=== PATIENT | female | born 1960 | race Caucasian/White ===

== ENCOUNTER 2019-06-23 12:58 | Outpatient (REF) | payer MEDICARE, SELFPAY ==
[2019-06-23 18:49] LABS: HCT 39.2 % (36.0-46.0); HGB 12.3 g/dL (12.0-15.5); Mean Corp. HGB Concentration 31.4 g/dL (32.0-36.0); Mean Corpuscular Hemoglobin 29.2 pg (27.0-33.0); Mean Corpuscular Volume 93.1 fL (80-95); Mean Platelet Volume 10.1 fL (8.0-11.0); Platelet Count 391 x1000/uL (130-400); RBC 4.21 m/cumm (4.00-5.20); RBC Distribution Width 15.4 % (11.7-14.6); White Blood Cell Count 7.73 k/cumm (4.4-10.8)
[2019-06-23 19:12] LABS: ALT 22 U/L (14-59); AST 20 U/L (15-37); Albumin 3.4 g/dL (3.4-5.0); Alkaline Phosphatase 102 U/L (46-116); Anion Gap 9.6 mmol/L (3-11); BUN 4 mg/dL (7-18); Bilirubin, Total 0.3 mg/dL (0.2-1.0); CO2 28.4 mmol/L (21.0-32.0); CREATININE 0.76 mg/dL (0.55-1.02); Chloride 107 mmol/L (98-107); Glucose 89 mg/dL (70-100); Potassium 4.5 mmol/L (3.5-5.1); Sodium 145 mmol/L (136-145); TSH 0.73 uIU/mL (0.36-3.74); Total Protein 6.9 g/dL (6.4-8.2)
== END 2019-06-23 13:18 ==
LOC: NCHCN 12:58
PROVIDERS: PCP Internal Medicine; Visit Provider Internal Medicine
DX: M06.9 Rheumatoid arthritis, unspecified (principal); Z79.899 Other long term (current) drug therapy
CPT/HCPCS: 80053; 85027; 84443

== ENCOUNTER 2020-03-09 22:15 | Outpatient (REF) | payer MEDICARE, SELFPAY ==
[2020-03-09 19:38] LABS: HCT 39.4 % (36.0-46.0); HGB 12.6 g/dL (12.0-15.5); Mean Corpuscular Hemoglobin 30.2 pg (27.0-33.0); Mean Corpuscular Volume 94.5 fL (80-95); Mean Platelet Volume 11.1 fL (8.0-11.0); Platelet Count 293 x1000/uL (130-400); RBC 4.17 m/cumm (4.00-5.20)
[2020-03-09 19:49] LABS: ALT 23 U/L (14-59); AST 28 U/L (15-37); Alkaline Phosphatase 95 U/L (46-116); Bilirubin, Direct 0.17 mg/dL (0.00-0.20); Bilirubin, Total 0.8 mg/dL (0.2-1.0); Total Protein 6.8 g/dL (6.4-8.2)
[2020-03-11 14:56] LABS: ANA Interpretation Positive (Negative); ANA Titer Pattern 1:80 Homogeneous
== END 2020-03-09 22:35 ==
LOC: NCHCN 22:15
PROVIDERS: PCP Internal Medicine; Visit Provider Nurse Practitioner Family
DX: R21 Rash and other nonspecific skin eruption (principal)
CPT/HCPCS: 80076; 85027; 86038

== ENCOUNTER 2020-07-13 12:49 | Outpatient (REF) | payer MEDICARE, SELFPAY ==
[2020-07-17 07:20] LABS: Patient Race White; SARS-CoV-2 Specimen Source Nasopharynx
[2020-07-17 08:36] LABS: SARS-CoV-2 RNA Detected (Undetected)
== END 2020-07-13 13:09 ==
LOC: NCHCN 12:49
PROVIDERS: PCP Internal Medicine; Visit Provider Nurse Practitioner Family
DX: Z20.828 Contact with and (suspected) exposure to other viral communicable diseases (principal)
CPT/HCPCS: U0003

== ENCOUNTER 2020-11-02 15:40 | Outpatient (REF) | payer MEDICARE, SELFPAY ==
[2020-11-02 19:33] LABS: Abs Immature Grans 0.02 10^3/uL (0.0-0.06); Absolute Basophil Count 0.06 10^3/uL (0.0-0.2); Absolute Eosinophil Count 0.18 10^3/uL (0.0-0.7); Absolute Lymphocyte Count 1.54 10^3/uL (1.2-3.4); Absolute Monocyte Count 0.41 10^3/uL (0.1-0.8); Absolute Neutrophil Count 2.95 10^3/uL (1.2-6.7); Basophils % 1.2; Eosinophils % 3.5; HCT 41.7 % (36.0-46.0); HGB 12.9 g/dL (11.2-15.7); Immature Grans % 0.4; Lymphocytes % 29.8; MCHC 30.9 % (32.0-36.0); MCV 93.7 fL (80-95); MPV 11.1 fL (8.0-11.0); Monocytes % 7.9; Neutrophils % 57.2; Nucleated RBC 0 %; Platelet Count 363 10^3/uL (130-400); RBC 4.45 10^6/uL (3.93-5.22); RDW 15.1 % (11.7-14.6); WBC 5.16 10^3/uL (4.4-10.8)
[2020-11-02 19:54] LABS: ALT 23 U/L (14-59); AST 23 U/L (15-37); Albumin 3.8 g/dL (3.4-5.0); Alkaline Phosphatase 95 U/L (46-116); Anion Gap 6.6 mmol/L (3-11); BUN 13 mg/dL (7-18); Bilirubin, Total 0.5 mg/dL (0.2-1.0); CO2 30.4 mmol/L (21.0-32.0); CREATININE 0.8 mg/dL (0.55-1.02); Chloride 104 mmol/L (98-107); Glucose 80 mg/dL (74-106); Potassium 4.8 mmol/L (3.5-5.1); Sodium 141 mmol/L (136-145)
== END 2020-11-02 15:41 | disposition home or self-care (01) ==
LOC: LBN 15:40
PROVIDERS: PCP Internal Medicine; Visit Provider Internal Medicine
DX: M05.9 Rheumatoid arthritis with rheumatoid factor, unspecified (principal); Z79.899 Other long term (current) drug therapy
CPT/HCPCS: 80053; 85025

== ENCOUNTER 2021-06-09 13:15 | Outpatient (REF) | payer MEDICARE, SELFPAY ==
[2021-06-09 19:45] LABS: Abs Immature Grans 0.02 10^3/uL (0.0-0.06); Absolute Basophil Count 0.06 10^3/uL (0.0-0.2); Absolute Eosinophil Count 0.24 10^3/uL (0.0-0.7); Absolute Lymphocyte Count 1.39 10^3/uL (1.2-3.4); Absolute Monocyte Count 0.47 10^3/uL (0.1-0.8); Absolute Neutrophil Count 3.25 10^3/uL (1.2-6.7); Basophils % 1.1; Eosinophils % 4.4; HCT 40.6 % (36.0-46.0); HGB 12.9 g/dL (11.2-15.7); Immature Grans % 0.4; Lymphocytes % 25.6; MCH 30.8 pg (27.0-33.0); MCHC 31.8 % (32.0-36.0); MCV 96.9 fL (80-95); MPV 10.8 fL (8.0-11.0); Monocytes % 8.7; Neutrophils % 59.8; Nucleated RBC 0 %; Platelet Count 327 10^3/uL (130-400); RBC 4.19 10^6/uL (3.93-5.22); RDW 14.6 % (11.7-14.6); WBC 5.43 10^3/uL (4.4-10.8)
[2021-06-09 20:04] LABS: ALT 25 U/L (14-59); AST 24 U/L (15-37); Alkaline Phosphatase 77 U/L (46-116); Anion Gap 7.9 mmol/L (3-11); BUN 14 mg/dL (7-18); Bilirubin, Total 0.5 mg/dL (0.2-1.0); CO2 30.1 mmol/L (21.0-32.0); CREATININE 0.9 mg/dL (0.55-1.02); Calcium 9.1 mg/dL (8.5-10.1); Chloride 104 mmol/L (98-107); Glucose 89 mg/dL (74-106); Potassium 4.6 mmol/L (3.5-5.1); Sodium 142 mmol/L (136-145); Total Protein 6.9 g/dL (6.4-8.2)
== END 2021-06-09 13:16 | disposition home or self-care (01) ==
LOC: LBN 13:15
PROVIDERS: PCP Internal Medicine; Visit Provider Internal Medicine
DX: M05.9 Rheumatoid arthritis with rheumatoid factor, unspecified (principal); Z79.899 Other long term (current) drug therapy
CPT/HCPCS: 80053; 85025

== ENCOUNTER 2021-11-07 14:39 | Outpatient (REF) | payer MEDICARE, SELFPAY ==
[2021-11-07 20:02] LABS: ALT 13 U/L (14-59); AST 18 U/L (15-37); Albumin 3.5 g/dL (3.4-5.0); Alkaline Phosphatase 87 U/L (46-116); Anion Gap 7.6 mmol/L (3-11); BUN 15 mg/dL (7-18); Bilirubin, Total 0.4 mg/dL (0.2-1.0); CO2 27.4 mmol/L (21.0-32.0); CREATININE 1.1 mg/dL (0.55-1.02); Calcium 9.2 mg/dL (8.5-10.1); Chloride 103 mmol/L (98-107); Estimated GFR 50.67 (mL/min/1.73m2); Glucose 101 mg/dL (74-106); Potassium 5.2 mmol/L (3.5-5.1); Sodium 138 mmol/L (136-145); Total Protein 7.6 g/dL (6.4-8.2)
== END 2021-11-07 14:40 | disposition home or self-care (01) ==
LOC: LBN 14:39
PROVIDERS: PCP Internal Medicine; Visit Provider Internal Medicine
DX: M05.9 Rheumatoid arthritis with rheumatoid factor, unspecified (principal); Z79.899 Other long term (current) drug therapy
CPT/HCPCS: 80053

== ENCOUNTER 2021-12-21 16:25 | Outpatient (REF) | payer MEDICARE, SELFPAY ==
--- OUTSIDE RECORDS SUMMARY | 2021-12-21 16:29 | XMS_ITS ---
:1960 Author Care Team Providers Name Role Phone SANFORD CABELLO MD Primary Care Provider [phone] CASSANDRA ABAD MD General Surgeon Unavailable Allergies Code Code System Name Reaction Severity Status Onset 20360928 RxNorm Biaxin ? ? Active ? 24612 RxNorm Halobetasol Rash ? Active ? Medications Name Status Start Date Stop Date ? ? acetaminophen 300 mg-codeine 30 mg Completed ? 03/29/2020 tablet amitriptyline 25 mg tablet Completed 09/13/202109/15 Take 1 tablet 3 times a day by oral route. replaces imipramine home med amoxicillin 875 mg-potassium clavulanate 125 mg tablet Active 09/13/2021 Not available Take 1 tablet twice a day by oral route for 10 days. azelastine 137 mcg (0.1 %) nasal Completed ? 03/29/2020 spray aerosol azithromycin 250 mg tablet Completed ? 03/29 benzonatate 200 mg capsule Active 09/13/2021 Not a vailable Take 1 capsule 3 times a day by oral route as needed. Calcium 500 + D Completed 09/13/2021 09/14/2021 cannabidiol 100 mg/mL oral solution Completed 09/13/2021 09/14/2021 Take 2 mL twice a day by oral route for 30 days. clotrimazole 1 % topical cream Completed ? 0 04/04/2021 cranberry Completed 09/13/2021 09/14/2021 Culturelle Completed 09/13/2021 09/14/2021 Enbrel SureClick 50 mg/mL (1 mL) Completed 09/13/2021 09/14/2021 subcutaneous pen injector Estrace 0.01% (0.1 mg/gram) vaginal cream Completed 202109/14/2021 Insert 1 g by vaginal route. famotidine 20 mg tablet Completed 09/13/2021 09/19/19 Take 1 tablet twice a day by oral route for 30 days. folic acid Completed 09/13/2021 09/14/2021 folic acid 1 mg tablet Active 09/13/2021 Not avail able Take 1 tablet every day by oral route for 30 days. furosemide 40 mg tablet Active 09/13/2021 Not avai lable Take 1 tablet every day by oral route in the morning. Glucosamine Chondroitin MaxStr Completed 09/13/2021 0 09/14/2021 halobetasol propionate 0.05 % Completed ? topical ointment hydroxychloroquine 200 mg tablet Active 09/13/2021 Not available 1 tablet twice a day by oral route. imipramine 25 mg tablet Active 09/13/2021 Not avai lable Take 1 tablet 3 times a day by oral route as needed. ipratropium 0.5 mg-albuterol 3 mg (2.5 mg base)/3 mL nebuliz ation soln Active 09/13/2021 Not available Inhale 3 mL every 6 hours by nebulization route as needed. Keflex 500 mg capsule Completed 03/16/2006 08/03/2006 1 Cap: QID Klor-Con M10 mEq tablet,extended release Active 022 Not available Take 1 tablet 3 times a day by oral route. magnesium gluconate Completed 09/13/2021 09/14/2021 meclizine 12.5 mg tablet Active 09/13/2021 Not caitlin ilable Take 2 tablets 3 times a day by oral route as needed. meclizine 25 mg tablet Completed ? methotrexate sodium 2.5 mg tablet Active 09/13/2021 Not available 6 tablets every week by oral route. methylprednisolone 8 mg tablet Completed 03/10/2016 0 03/18/2016 2 (two) Tablet: twice a day, decrease b y 8 mg every couple of days till discontinue Microgestin FE 09/08 (28) 1 mg-20 mcg (21)/75 mg (7) tablet Compl eted 08/22/2013 05/04/2014 1 Tablet Tablet: daily montelukast 10 mg tablet Active 09/13/2021 Not caitlin ilable 1 tablet every day by oral route. naproxen 500 mg tablet Active 09/13/2021 Not avail able Take 0.5 tablets twice a day by oral route. Neurontin 100 mg capsule Completed ? 018 Take 1 capsule 3 times a day by oral route. ondansetron 4 mg disintegrating tablet Active Not available Place 1 tablet every 6 hours by translingual route as needed. Ovcon-35 (28) 0.4 mg-35 mcg tablet Completed 12/11/2011 01/08/2012 1 (one) Tablet: daily Plaquenil Completed ? 09/13/2021 Probiotic Blend 2 million cell-50 mg capsule Active Not available Take 1 capsule every day by oral route for 30 days. not exact formulation, best option in May Proventil HFA 90 mcg/actuation aerosol inhaler Active 0 09/13/2021 Not available Inhale 2 puffs every 4 hours by inhalation route as needed. spironolactone 25 mg tablet Active 09/13/2021 Not available Take 1 tablet every day by oral route. thiamine HCl (vitamin B1) 100 mg tablet Active 09/13/19 Not available Take 1 tablet every 24 hours by oral route. start day 2 triamcinolone acetonide 0.1 % Completed ? topical ointment Valium 2 mg tablet Completed 09/13/2021 09/19/2021 Take 1 tablet every 6 hours by oral route as needed. Valium 5 mg tablet Completed 09/13/2021 09/19/2021 Take 1 tablet twice a day by oral route for 30 days. Vitamin B-12 1,000 mcg tablet Active 09/13/2021 N ot available Take 1 tablet every day by oral route for 30 days. Notes: Meds updated with OCT 1802/08 Problems Name Status Onset Date Source ? Genital Lichen Sclerosus Active 07/19/2018 ? Rheumatoid Arthritis Active 09/10/2021 ? Wernicke's Disease Active 09/13/2021 ? Generalized Anxiety Disorder Active 09/13/2021 ? Wernicke's Hemianopic Pupil Active 09/13/2021 ? Pulmonary Hypertension Active 09/13/2021 ? Pneumonia Active 09/13/2021 ? Sepsis Active 09/14/2021 ? 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 Aureus Infection Alcohol Withdrawal Syndrome Active 09/14/2021 ? Body Mass Index 25-29 - Overweight Unknown ? History Epidermoid Cyst of Skin Unknown ? History Lumbosacral Radiculopathy Active ? Histor y Disorder of Skin And/or Subcutaneous Unknown ? History Tissue Gynecologic Examination Unknown ? History Screening Mammography Unknown ? History Procedure by Method Unknown ? History Menopause Present Active ? History Procedures Date Name Performed by ? ? Dilation and Curettage Information not a vailable ? Orthopedic Surgery Information not [place] labelaine Notes: Right foot - rheum atoid arthritis; left foot surgery 02/05/2009; left foot 11/05/2009 and 10/20/2010 02/05/2018 MAMMO, Screening, Tomosynthesis, [facility] Rad[facility] (Internal) Bilateral [address], [place] [id number] (Work Place) 10/13/2019 MAMMO, Screening, Tomosynthesis, [facility] Rad[facility] (Internal) Bilateral [address], [place] [id number] (Work Place) 01/25/2021 MAMMO, Screening, Tomosynthesis, [facility] (Internal) Bilateral [address] [place] [address] (Work Place) Notes: Bunionectomy; Liver Biopd y 2002 Results Lab Results Date Name Specimen Result Interpretation Description Value Range Status Address ? 09/28/2021 BMP, Serum S High g/r 108 mg/dL 74-106 Final [place] or Plasma mg/dL [facility] [address] ? ? S High Bun 19 mg/dL 7-18 Final [place] mg/dL [facility] : [address] ? ? S High Crea 1.8 mg/dL 0.6-1.0 Final [place] mg/dL [facility] : [address] ? ? S ? Ca 9.1 mg/dL 8.5-10.1 Final [place] mg/dL [facility] : [address] ? ? S Low Na 135 136-145 Final [place] mmol/L mmol/L [facility] : [address] ? ? S ? K 4.3 3.5-5.1 Final [place] mmol/L mmol/L [facility] : [address] ? ? S ? Cl 100 98-107 Final [place] mmol/l mmol/l [facility] (Internal) : [address] ? ? S ? Tco2 28.3 21.0-32.0 Final [place] mmol/L mmol/L [facility] (Internal) : [address] t 09/27/2021 CBC W/ Auto BLD ? Wbc 8.3 5.0-10.0 Final [place] Diff 10*3/uL 10*3/uL [facility] (Internal) : [address] ? ? BLD Low Rbc 3.57 4.10-5.30 Final [place] 10*6/uL 10*6/uL [facility] (Internal) : [address] ? ? BLD Low Hgb 10.5 g/dL 12.0-16.0 Final [place] h g/dL [facility] (Internal) : [address] ? ? BLD Low Hct 34.2 % 37.0-47.0 Final [facility] (Internal) : [address] ? ? BLD ? Mcv 95.8 fL 80.0-96.0 Final [facility] (Internal) : [address] ? ? BLD ? Mch 29.4 pg 26.0-32.0 Final [facility] (Internal) : [address] ? ? BLD Low Mchc 30.7 g/dL 31.0-35.0 Final Nort h g/dL [facility] (Internal) : [address] t ? ? BLD High Rdw 15.3 % 11.5-14.5 Final [facility] (Internal) : [address] ? ? BLD High Plt 483 130-450 Final [place] 10*3/uL 10*3/uL [facility] (Internal) : [address] ? ? BLD ? Anc 5.67 ? Final [place] 10*3/uL [facility] (Internal) : [address] ? ? BLD High Nlr 3.44 0.00-3.20 Final [place] [facility] : [address] ? ? BLD ? Neutro 68.4 % 40.0-75.0 Final [facility] : [address] ? ? BLD Low Lymph 19.9 % 20.0-50.0 Final [facility] [address] ? ? BLD ? Wise 8.4 % 2.0-10.0 Final [facility] : [address] ? ? BLD ? Eos 1.9 % 1.0-6.0 % Final [facility] (Internal) : [address] ? ? BLD ? Baso 1.0 % 0.0-1.0 % Final [facility] (Internal) : [address] ? ? BLD ? Ig 0.4 % 0.0-0.9 % Final [facility] (Internal) : [address] t 09/27/2021 CMP, Serum S ? g/r 92 mg/dL 74-106 Final [place] or Plasma mg/dL [facility] : [address] ? ? S ? Bun 17 mg/dL 7-18 Final [place] mg/dL [facility] : [address] ? ? S High Crea 1.4 mg/dL 0.6-1.0 Final [place] mg/dL [facility] ([facility] : [address] ? ? S ? Ca 9.4 mg/dL 8.5-10.1 Final [place] mg/dL [facility] ([facility] : [address] ? ? S Low Na 135 136-145 Final [place] mmol/L mmol/L [facility] ([facility] : [address] ? ? S High K 6.3 3.5-5.1 Final [place] mmol/L mmol/L [facility] ([facility] : [address] ? ? S ? Cl 101 98-107 Final [place] mmol/l mmol/l [facility] (Internal) : [address] ? ? S ? Tco2 25.9 21.0-32.0 Final [place] mmol/L mmol/L [facility] ([facility] : [address] ? ? S ? Tp 8.0 g/dL 6.4-8.2 Final [place] g/dL [facility] (Internal) : [address] ? ? S ? Alb 3.5 g/dL 3.4-5.0 Final [place] g/dL [facility] (Internal) : [address] ? ? S ? Tbil 0.60 0.20-1.00 Final [place] mg/dL mg/dL [facility] (Internal) : [address] ? ? S High Alp 124 U/L 46-116 Final [place] U/L [facility] (Internal) : [address] ? ? S ? Alt 18 U/L 14-59 U/L Final [place] (Sgpt) [facility] (Internal) : [address] ? ? S High Ast 51 U/L 15-37 U/L Final [place] (Sgot) [facility] (Internal) : [address] t 09/20/2021 CBC W/ Auto BLD ? Wbc 8.5 5.0-10.0 Final [place] Diff 10*3/uL 10*3/uL [facility] : [address] ? ? BLD Low Rbc 3.17 4.10-5.30 Final [place] 10*6/uL 10*6/uL [facility] (Internal) : [address] ? ? BLD Low Hgb 9.6 g/dL 12.0-16.0 Final [place] g/dL [facility] (Internal) : [address] ? ? BLD Low Hct 30.4 % 37.0-47.0 Final [place] % [facility] (Internal) : [address] ? ? BLD ? Mcv 95.9 fL 80.0-96.0 Final [facility] : [address] ? ? BLD ? Mch 30.3 pg 26.0-32.0 Final [facility] (Internal) : [address] ? ? BLD ? Mchc 31.6 g/dL 31.0-35.0 Final Nort h g/dL [facility] (Internal) : [address] t ? ? BLD High Rdw 15.9 % 11.5-14.5 Final [facility] (Internal) : [address] ? ? BLD ? Plt 449 130-450 Final [place] 10*3/uL 10*3/uL [facility] (Internal) : [address] ? ? BLD ? Anc 5.86 ? Final [place] 10*3/uL [facility] (Internal) : [address] ? ? BLD High Nlr 3.96 0.00-3.20 Final [facility] (Internal) : [address] ? ? BLD ? Neutro 68.6 % 40.0-75.0 Final [facility] (Internal) : [address] ? ? BLD Low Lymph 17.4 % 20.0-50.0 Final [facility] (Internal) : [address] ? ? BLD High Wise 10.1 % 2.0-10.0 Final [facility] (Internal) : [address] ? ? BLD ? Eos 2.6 % 1.0-6.0 % Final [facility] (Internal) : [address] ? ? BLD ? Baso 0.8 % 0.0-1.0 % Final [facility] (Internal) : [address] ? ? BLD ? Ig 0.5 % 0.0-0.9 % Final [facility] (Internal) : [address] t 09/20/2021 CMP, Serum S ? g/r 105 mg/dL 74-106 Final [place] or Plasma mg/dL [facility] (Internal) : [address] ? ? S ? Bun 10 mg/dL 7-18 Final [place] mg/dL [facility] : [address] ? ? S High Crea 1.7 mg/dL 0.6-1.0 Final [place] mg/dL [facility] : [address] ? ? S ? Ca 8.8 mg/dL 8.5-10.1 Final [place] mg/dL [facility] : [address] ? ? S ? Na 140 136-145 Final [place] mmol/L mmol/L [facility] ([facility] : [address] ? ? S ? K 4.5 3.5-5.1 Final [place] mmol/L mmol/L [facility] ([facility] : [address] ? ? S ? Cl 103 98-107 Final [place] mmol/l mmol/l [facility] ([facility] : [address] ? ? S ? Tco2 29.5 21.0-32.0 Final [place] mmol/L mmol/L [facility] ([facility] : [address] ? ? S ? Tp 6.6 g/dL 6.4-8.2 Final [place] g/dL [facility] : [address] ? ? S Low Alb 2.8 g/dL 3.4-5.0 Final [place] g/dL [facility] : [address] ? ? S ? Tbil 0.50 0.20-1.00 Final [place] mg/dL mg/dL [facility] ([facility] : [address] ? ? S ? Alp 107 U/L 46-116 Final [place] U/L [facility] : [address] ? ? S ? Alt 20 U/L 14-59 U/L Final [facility] (Sgpt) [facility] : [address] ? ? S ? Ast 31 U/L 15-37 U/L Final [facility] (Sgot) [facility] : [address] t 09/20/2021 Magnesium, S ? mg 2.3 mg/dL 1.8-2.4 Final [place] QN, Serum mg/dL [facility] (Internal[facility] : [address] t 09/13/2021 SARS CoV 2 SWAB ? Covid isaiah-cov-2 isaiah-cov-2 Fin al [facility] RNA PCR not not [facility] (COVID-19), Screen detected detected H ospital Lab QL, (Internal) : parking patroller-PCR, [address] Respiratory , N ewport Specimen 09/07/2021 Cbc BLD High Wbc 10.7 5.0-10.0 Final Nort h 10*3/uL 10*3/uL [facility] : [address] ? ? BLD Low Rbc 3.25 4.10-5.30 Final [place] 10*6/uL 10*6/uL [facility] (Internal) : [address] ? ? BLD Low Hgb 9.7 g/dL 12.0-16.0 Final [place] g/dL [facility] (Internal) : [address] ? ? BLD Low Hct 31.1 % 37.0-47.[address] [facility] (Internal) : [address] ? ? BLD ? Mcv 95.7 fL 80.0-96.0 Final [facility] ([facility] : [address] ? ? BLD ? Mch 29.8 pg 26.0-32.0 Final [facility] (Internal) : [address] ? ? BLD ? Mchc 31.2 g/dL 31.0-35.0 Final Nort h g/dL [facility] (Internal) : [address] ? ? BLD High Rdw 15.6 % 11.5-14.[address] [facility] (Internal) : [address] ? ? BLD ? Plt 434 130-450 Final [place] 10*3/uL 10*3/uL [facility] (Internal) : [address] ? ? BLD ? Anc 8.66 ? Final [facility] 10*3/uL [facility] : [address] t 09/07/2021 CMP, Serum S High g/r 109 mg/dL 74-106 Final [place] or Plasma mg/dL [facility] ([facility] : [address] ? ? S ? Bun 11 mg/dL 7-18 Final [place] mg/dL [facility] ([facility] : [address] ? ? S ? Crea 1.0 mg/dL 0.6-1.0 Final [facility] mg/dL [facility] ([facility] : [address] ? ? S Low Ca 8.0 mg/dL 8.5-10.1 Final [facility] mg/dL [facility] ([facility] : [address] t ? ? S ? Na 142 136-145 Final [place] mmol/L mmol/L [facility] ([facility] : [address] ? ? S Low K 2.8 3.5-5.1 Final [place] mmol/L mmol/L [facility] ([facility] : [address] ? ? S ? Cl 104 98-107 Final [place] mmol/l mmol/l [facility] ([facility] : [address] ? ? S ? Tco2 29.8 21.0-32.0 Final [place] mmol/L mmol/L [facility] (Internal[facility] : [address] ? ? S Low Tp 5.9 g/dL 6.4-8.2 Final [facility] g/dL [facility] ([facility] : [address] t ? ? S Low Alb 1.9 g/dL 3.4-5.0 Final [facility] g/dL [facility] ([facility] : [address] ? ? S ? Tbil 0.70 0.20-1.00 Final [place] mg/dL mg/dL [facility] ([facility] : [address] ? ? S High Alp 118 U/L 46-116 Final [facility] U/L [facility] : [address] ? ? S ? Alt 29 U/L 14-59 U/L Final [place] (Sgpt) [facility] (Internal) : [address] ? ? S High Ast 39 U/L 15-37 U/L Final [place] (Sgot) [facility] (Internal) : [address] 09/07/2021 Vancomycin, S High Vanco, 23.6 5.0-10.0 Final [place] Trough, Trough ug/mL ug/mL [facility] : [address] t 09/04/2021 Ph, Venous BLD High Venous 7.54 [pH] 7.32-7.43 Fi nal [place] pH [pH] [facility] : [address] ? ? BLD ? Pco2 44 mm[hg] 33-47 Final [place] mm[hg] [facility] (Internal) : [address] ? ? BLD ? TCO2, 39 mmol/L ? Final [place] Venous [facility] (Internal) : [address] ? ? BLD ? Base 14.0 ? Final [place] mmol/L [facility] (Internal) : [address] 09/04/2021 Lactic S ? La 0.8 0.7-2.1 Final [place] Acid, Blood mmol/L mmol/L [facility] (Internal) : [address] 09/04/2021 Gas Panel, BLD ? Tco2 38 mmol/L ? Final [place] Arterial [facility] (Internal) : [address] ? ? BLD High Ph 7.52 [pH] 7.35-7.45 Final Nort h [pH] [facility] (Internal) : [address] ? ? BLD ? Pco2 45 mm[hg] 33-47 Final [place] mm[hg] [facility] (Internal) : [address] ? ? BLD Low Po2 65 mm[hg] 80-100 Final [place] mm[hg] [facility] (Internal) : [address] ? ? BLD Low O2 Sat 94 % 95-98 % Final [facility] (Internal) : [address] ? ? BLD ? Base 12.5 ? Final [place] mmol/L [facility] ([facility] : [address] ? ? BLD ? Hco3 36.7 ? Final [place] mmol/L [facility] ([facility] : [address] ? ? BLD ? Na 141 ? Final [place] (Arteria mmol/L [facility] l) [facility] (Internal) : [address] ? ? BLD ? K 2.8 ? Final [place] (Arteria mmol/L [facility] (Internal) : [address] [place] ? ? BLD ? pO2(A/A 67.50 ? Final [place] ) [facility] : [address] ? ? BLD ? Fio2 2.5L nc ? Final [facility] (Internal) : [address] ? ? BLD ? Site right ? Final [place] radial [facility] (Internal) : [address] ? ? BLD ? Jose n/a ? Final [place] Test [facility] ([facility] : [address] ? ? BLD ? Resp sw ? Final [facility] (Internal) : [address] t 09/03/2021 Ph, Venous BLD High Venous 7.56 [pH] 7.32-7.43 Fi nal [place] pH [pH] [facility] : [address] ? ? BLD ? Pco2 39 mm[hg] 33-47 Final [place] mm[hg] [facility] ([facility] : [address] ? ? BLD ? TCO2, 36 mmol/L ? Final [place] Venous [facility] ([facility] : [address] ? ? BLD ? Base 11.1 ? Final [place] mmol/L [facility] ([facility] : [address] t 09/03/2021 Ph, Venous BLD High Venous 7.55 [pH] 7.32-7.43 Fi nal [place] pH [pH] [facility] (Internal) : [address] ? ? BLD ? Pco2 41 mm[hg] 33-47 Final [place] mm[hg] [facility] (Internal) : [address] ? ? BLD ? TCO2, 38 mmol/L ? Final [place] Venous [facility] (Internal) : [address] ? ? BLD ? Base 12.7 ? Final [place] mmol/L [facility] (Internal) : [address] t 09/03/2021 Cbc BLD High Wbc 15.1 5.0-10.0 Final Nort h 10*3/uL 10*3/uL [facility] : [address] ? ? BLD Low Rbc 3.74 4.10-5.30 Final [place] 10*6/uL 10*6/uL [facility] ([facility] : [address] ? ? BLD Low Hgb 11.2 g/dL 12.0-16.0 Final Nort h g/dL [facility] (Internal) : [address] ? ? BLD Low Hct 34.3 % 37.0-47.0 Final [facility] (Internal) : [address] ? ? BLD ? Mcv 91.7 fL 80.0-96.0 Final [facility] : [address] ? ? BLD ? Mch 29.9 pg 26.0-32.0 Final [facility] (Internal) : [address] ? ? BLD ? Mchc 32.7 g/dL 31.0-35.0 Final Nort h g/dL [facility] (Internal) : [address] ? ? BLD High Rdw 14.9 % 11.5-14.[address] [facility] (Internal) : [address] ? ? BLD ? Plt 290 130-450 Final [place] 10*3/uL 10*3/uL [facility] (Internal) : [address] ? ? BLD ? Anc 11.98 ? Final [place] 10*3/uL [facility] (Internal) : [address] 09/03/2021 BMP, Serum S High g/r 115 mg/dL 74-106 Final [place] or Plasma mg/dL [facility] ([facility] : [address] ? ? S ? Bun 10 mg/dL 7-18 Final [place] mg/dL [facility] ([facility] : [address] ? ? S ? Crea 0.7 mg/dL 0.6-1.0 Final [place] mg/dL [facility] ([facility] : [address] ? ? S Low Ca 8.2 mg/dL 8.5-10.1 Final [place] mg/dL [facility] ([facility] : [address] ? ? S ? Na 141 136-145 Final [place] mmol/L mmol/L [facility] ([facility] : [address] ? ? S Low K 2.9 3.5-5.1 Final [place] mmol/L mmol/L [facility] ([facility] : [address] ? ? S ? Cl 101 98-107 Final [place] mmol/l mmol/l [facility] [address] [facility] ? ? S High Tco2 34.3 21.0-32.0 Final [place] mmol/L mmol/L [facility] ([facility] : [address] t 08/31/2021 Lactic S ? La 2.1 0.7-2.1 Final [place] Acid, Blood mmol/L mmol/L [facility] [address] [facility]/30[facility] Lactic S High La 2.6 0.7-2.1 Final [place] Acid, Blood mmol/L mmol/L [facility] (Internal) : [address] [facility] 08/30/2021 Lactic S High La 3.1 0.7-2.1 Final [place] Acid, Blood mmol/L mmol/L [facility] (Internal) : [address] [facility] t 08/29/2021 Lactic S High La 4.3 0.7-2.1 Final [place] Acid, Blood mmol/L mmol/L [facility] (Internal) : [address] t 08/29/2021 Lactic S High La 2.9 0.7-2.1 Final [place] Acid, Blood mmol/L mmol/L Count Hospital L ab (Internal) : [address] 08/29/2021 SARS CoV 2 SWAB ? Covid isaiah-cov-2 isaiah-cov-2 Fin al [facility] RNA PCR not not [facility] (COVID-19), Screen detected detected H ospital Lab QL, (Internal) : parking patroller-PCR, [address] Respiratory , N ewport Specimen 08/29/2021 Rapid Strep THRT ? Final microbiol ? Final [facility] Group a, ogy [facility] Throat results Hospital Lab (Internal) : [address] t 08/29/2021 Rapid Flu NASAL ? Final microbiol ? Final [facility] (A+B) ogy [facility] results Hospital Lab (Internal) : [address] t 08/29/2021 Procalciton High Pct 23.33 0.00-0.50 Final [facility] in, Serum NG/mL NG/mL [facility] (Internal[facility] : [address] t 08/29/2021 BMP, Serum S ? g/r 87 mg/dL 74-106 Final [facility] or Plasma mg/dL [facility] (Internal[facility] : [address] t ? ? S ? Bun 16 mg/dL 7-18 Final [facility] mg/dL [facility] ([facility] : [address] t ? ? S High Crea 1.2 mg/dL 0.6-1.0 Final [facility] mg/dL [facility] ([facility] : [address] t ? ? S ? Ca 9.8 mg/dL 8.5-10.1 Final [facility] mg/dL [facility] (Internal[facility] : [address] t ? ? S ? Na 138 136-145 Final [facility] mmol/L mmol/L [facility] ([facility] : [address] t ? ? S ? K 4.2 3.5-5.1 Final [facility] mmol/L mmol/L [facility] (Internal[facility] : [address] t ? ? S ? Cl 98 mmol/l 98-107 Final [facility] mmol/l [facility] L [facility] (Internal) : [address] t ? ? S ? Tco2 26.4 21.0-32.0 Final [place] mmol/L mmol/L [facility] (Internal) : [address] 08/29/2021 CBC W/ Auto BLD ? Wbc 5.1 5.0-10.0 Final [place] Diff 10*3/uL 10*3/uL [facility] (Internal) : [address] t ? ? BLD ? Rbc 4.76 4.10-5.30 Final [place] 10*6/uL 10*6/uL [facility] (Internal) : [address] ? ? BLD ? Hgb 14.4 g/dL 12.0-16.0 Final Nort h g/dL [facility] (Internal) : [address] ? ? BLD ? Hct 44.3 % 37.0-47.[address] [facility] L ab (Internal) : [address] ? ? BLD ? Mcv 93.1 fL 80.0-96.0 Final [facility] : [address] t ? ? BLD ? Mch 30.3 pg 26.0-32.0 Final [place] pg [facility] (Internal) : [address] ? ? BLD ? Mchc 32.5 g/dL 31.0-35.0 Final Nort h g/dL [facility] L ab (Internal) : [address] t ? ? BLD ? Rdw 13.7 % 11.5-14.5 Final [facility] L ab (Internal) : [address] ? ? BLD ? Plt 161 130-450 Final [place] 10*3/uL 10*3/uL [facility] (Internal) : [address] 08/29/2021 Differentia BLD Low Polys 30 % 40-75 % Final [facility], Manual, Countr y Blood Hospital L ab (Internal) : [address] ? ? BLD High Bands 46 % 0-5 % Final [facility] Hospital L ab (Internal) : [address] ? ? BLD Low Lymphs 6 % 20-50 % Final [facility] L ab (Internal) : [address] ? ? BLD ? Wise 6 % 2-10 % Final [facility] L ab (Internal) : [address] ? ? BLD ? Eos 1 % 0-6 % Final [facility] L ab (Internal) : [address] ? ? BLD ? Baso 0 % 0-1 % Final [facility] L ab (Internal) : [address] ? ? BLD ? Atyp 0 % ? Final [facility] L ab (Internal) : [address] ? ? BLD High Young 11 % 0-0 % Final [facility] Hospital L ab (Internal) : [address] ? ? BLD ? Plts, adequate adequate Final [facility] L [facility] (Internal) : [address] ? ? BLD ? RBC normal normal Final [facility] Hospital L ab (Internal) : [address] t 08/29/2021 Neutrophil BLD ? Anc-man 3.86 ? Final [place] Count, ual 10*3/uL [facility] (Anc), (Internal) : Blood [address] t 08/29/2021 Nlr-manual BLD High Nlr - 12.67 0.00-3.20 Final [facility] Hospital L ab (Internal) : [address] t 08/29/2021 Culture, BLD ? Final microbiol ? Final N orth Blood 1 ogy [facility] results Hospital Lab (Internal) : [address] t 08/29/2021 Culture, BLD ? Final microbiol ? Final N orth Blood 2 ogy [facility] results Hospital Lab (Internal) : [address] t 08/29/2021 Urinalysis, UR ? UA-colo yellow pale Final [place] Dipstick, r yellow [facility] Reflex Hospital L ab Micro (Internal) : [address] ? ? UR ? UA-appe clear clear Final [facility] Hospital L ab (Internal) : [address] t ? ? UR ? UA-spec 1.025 1.003-1.0 Final [place] Grav 35 [facility] L ab (Internal) : [address] t ? ? UR ? UA-pH 5.0 [pH] 4.6-8.0 Final [place] [pH] [facility] ab (Internal) : [address] ? ? UR ? UA-leuk negative negative Final Nort h Est [facility] ab (Internal) : [address] ? ? UR ? UA-nitr negative negative Final Nort h ite [facility] ab (Internal) : [address] ? ? UR ABNORMAL UA-prot trace negative Final [facility] ab (Internal) : [address] t ? ? UR ? UA-gluc negative negative Final [facility] ab (Internal) : [address] ? ? UR ? UA-keto negative negative Final Nort h ne [facility] ab (Internal) : [address] ? ? UR ? UA-urob normal normal Final [facility] ab (Internal) : [address] ? ? UR ABNORMAL UA-bili small negative Final [facility] ab (Internal) : [address] ? ? UR ABNORMAL UA-bloo small negative Final Nort h d [facility] ab (Internal) : [address] 08/29/2021 Hepatic S High Tbil 1.20 0.20-1.00 Final No rth Function mg/dL mg/dL [facility], Hospital ab Serum (Internal) : [address] ? ? S High Dbil 0.64 0.00-0.20 Final [place] mg/dL mg/dL [facility] L ab (Internal) : [address] ? ? S High Alp 222 U/L 46-116 Final [place] U/L [facility] ab (Internal) : [address] ? ? S High Alt 431 U/L 14-59 U/L Final [place] (Sgpt) [facility] ab (Internal) : [address] ? ? S High Ast 583 U/L 15-37 U/L Final [place] (Sgot) [facility] L ab (Internal) : [address] ? ? S High Ggt 69 U/L 5-55 U/L Final [facility] L ab (Internal) : [address] ? ? S ? Tp 8.1 g/dL 6.4-8.2 Final [place] g/dL [facility] L ab (Internal) : [address] ? ? S Low Alb 3.2 g/dL 3.4-5.0 Final [place] g/dL [facility] L ab (Internal) : [address] 08/29/2021 Urinalysis, UR ? UA-WBC 0-3 [hpf] 0-3 [hpf] F inal [place] Microscopic Count [facility] L ab (Internal) : [address] ? ? UR ABNORMAL UA-RBC 10-25 0-2 [hpf] Final Nort h [hpf] [facility] L ab (Internal) : [address] ? ? UR ? UA-bact rare none seen Final [place] eria [hpf] [hpf] [facility] L ab (Internal) : [address] ? ? UR ? UA-epit rare none seen Final [place] helial [hpf] [hpf] [facility] L ab (Internal) : [address] ? ? UR ? UA-mucu none seen none seen Final No rth s [hpf] [hpf] [facility] ab (Internal) : [address] ? ? UR ? Amorph few [hpf] ? Final [place] Cryst [facility] L ab (Internal) : [address] ? ? UR ? Granula few [hpf] ? Final [place] r C [facility] L ab (Internal) : [address] 08/29/2021 Lactic S High La 2.2 0.7-2.1 Final [place] Acid, Blood mmol/L mmol/L Count [facility] L ab (Internal) : [address] 04/04/2021 Pap Test, MISC ? Hpv see ? Final Nor th Thinprep, report [facility] Lab (Internal) : [address] ? ? MISC ? Pap see ? Final [facility] report [facility] : [address] ? ? MISC ? Report (see ? Final [facility] below) [facility] (Internal[facility] : [address] 07/08/2018 Pathology TISS - Report results ? Final N orth Study below [facility] L ab (Internal) : [address] 02/05/2018 Pap Test, MISC - Hpv see ? Final Nor th Thinprep, report [facility] Lab (Internal) : [address] ? ? MISC - Pap see ? Final [facility] report [facility] (Internal) : [address] ? ? MISC - Report (added) ? Corrected [facility] results [facility] below Hospital L ab (Internal) : [address] t 07/13/2017 Pathology TISS ? Report results ? Final N orth Study below [facility] ab (Internal) : [address] 02/01/2017 Pap Test, MISC ? Hpv see ? Final Nor th Thinprep, report [facility] Lab (Internal) : [address] ? ? MISC ? Pap see ? Final [facility] report [facility] (Internal[facility] : [address] ? ? MISC ? Report (added) ? Corrected [facility] results [facility] below Hospital L ab (Internal) : [address] t 10/07/2016 Venipunctur BLD ? Venpn* ? ? Final North e [facility] (Internal) : [address] 10/07/2016 BMP, Serum S ? g/r 90 mg/dL 74-106 Final [facility] or Plasma mg/dL [facility] (Internal[facility] : [address] ? ? S Low Bun 6 mg/dL 7-17 Final [place] mg/dL [facility] (Internal) : [address] ? ? S ? Crea 0.60 0.52-1.04 Final [place] mg/dL mg/dL [facility] (Internal) : [address] ? ? S ? Ca 9.9 mg/dL 8.4-10.2 Final [place] mg/dL [facility] (Internal) : [address] ? ? S ? Na 141 137-145 Final [place] mmol/L mmol/L [facility] (Internal) : [address] ? ? S ? K 3.6 3.5-5.1 Final [place] mmol/L mmol/L [facility] ab (Internal) : [address] ? ? S ? Cl 100 98-107 Final [place] mmol/L mmol/L [facility] (Internal) : [address] ? ? S ? Tco2 25.0 22.0-30.0 Final [place] mmol/L mmol/L [facility] : [address] t 10/07/2016 CBC W/ Auto BLD High Wbc 10.4 5.0-10.0 Final [place] Diff 10*3/uL 10*3/uL [facility] ([facility] : [address] ? ? BLD ? Rbc 4.43 4.10-5.30 Final [place] 10*6/uL 10*6/uL [facility] (Internal) : [address] ? ? BLD ? Hgb 13.4 g/dL 12.0-16.0 Final Nort h g/dL [facility] L ab (Internal) : [address] ? ? BLD ? Hct 40.7 % 37.0-47.[address] [facility] Hospital L ab (Internal) : [address] ? ? BLD ? Mcv 91.9 fL 80.0-96.0 Final [facility] ([facility] : [address] ? ? BLD ? Mch 30.2 pg 26.0-32.0 Final [place] pg [facility] ab (Internal) : [address] ? ? BLD ? Mchc 32.9 g/dL 31.0-35.0 Final Nort h g/dL [facility] (Internal) : [address] ? ? BLD ? Rdw 14.4 % 11.5-14.[address] [facility] Hospital L ab (Internal) : [address] ? ? BLD High Plt 551 130-450 Final [place] 10*3/uL 10*3/uL [facility] (Internal) : [address] [place] ? ? BLD ? Anc 6.83 ? Final [place] 10*3/uL [facility] ab (Internal) : [address] [place] ? ? BLD ? Neutro 65.7 % 40.0-75.0 Final [facility] ab (Internal) : [address] [place] ? ? BLD ? Lymph 21.1 % 20.0-50.0 Final [facility] L ab (Internal) : [address] [place] ? ? BLD ? Wise 9.6 % 2.0-10.0 Final [facility] ab (Internal) : [address] [place] ? ? BLD ? Eos 2.0 % 1.0-6.0 % Final [facility] ab (Internal) : [address] [place] ? ? BLD ? Baso 0.5 % 0.0-1.0 % Final [facility] L ab (Internal) : [address] [place] ? ? BLD High Ig 1.1 % 0.0-0.9 % Final [facility] ab (Internal) : [address] [place] Past Encounters 09/19/2021 Generalized Anxiety Disorder; Methicilli n Resistant Staphylococcus Aureus Infection; Pneumonia; Rheumatoid Arthritis; Pulmonary Hypertension; Anemia; Hypomagnesemia; Alcohol Abuse; Gallbladder Problem; Spasm of Bladder; Hypokalemia; Vertigo; Asthma; Muscle Weakness Clarita Estrada MD: [address] [place] [address], Ph. 04/04/2021 Gynecologic Examination Nancy Abreu CNM: [address] [place] [address], Ph. Social History Tobacco Smoking Status Former Smoker Notes: Sociall y over 30 years ago Vaccine List Vaccine Type influenza, seasonal, injectable 06/08/2005 influenza, seasonal, injectable, preserv ative free 06/20/2008 rubella tetanus toxoid, adsorbed 08/20/1996 05/20/2008 Plan of Care Reminders Provider Appointments None ? ? recorded. Lab None ? ? recorded. Referral None ? ? recorded. Procedures None ? ? recorded. Surgeries None ? ? recorded. Imaging None ? ? recorded. Vitals 09/19/2021 01:20PM [facility] 40 Height Weight BMI Blood Pressure 157.48 cm 80.91 kg 32.6 kg/m2 124/72 mm[Hg] 04/04/2021 02:30PM HME 30 Weight Blood Pressure 73.75 kg 124/74 mm[Hg] 03/29/2020 02:50PM HME 30 Weight Blood Pressure 73.03 kg 120/68 mm[Hg] 07/08/2018 09:10AM Office 20 Height Weight BMI Blood Pressure 160.02 cm 78.61 kg 30.7 kg/m2 118/68 mm[Hg] 04/26/2018 11:20AM Office 20 Height Weight BMI Blood Pressure 160.02 cm 78.02 kg 30.5 kg/m2 128/74 mm[Hg] 03/18/2018 10:40AM Any 20 Height Blood Pressure 160.02 cm 124/70 mm[Hg] 02/05/2018 10:00AM Office 20 Height Weight BMI Blood Pressure 160.02 cm 77.93 kg 30.4 kg/m2 120/70 mm[Hg] 02/01/2017 Height Weight Blood Pressure 160.02 cm 78.02 kg 122/80 mm[Hg] 03/10/2016 Height Weight Blood Pressure 160.02 cm 76.66 kg 120/72 mm[Hg] 12/02/2015 Height Weight Blood Pressure 162.56 cm 77.29 kg 124/76 mm[Hg] 05/04/2014 Height Weight Blood Pressure 162.56 cm 80.6 kg 118/72 mm[Hg] 12/29/2013 Height Weight Blood Pressure 162.56 cm 84.28 kg 120/82 mm[Hg] 02/27/2013 Height Weight Blood Pressure 162.56 cm 85.18 kg 124/78 mm[Hg] 02/02/2012 Height Weight Blood Pressure 162.56 cm 85.41 kg (1) 144/90 mm[Hg] (2) 140/90 mm[Hg] 12/26/2010 Height Weight Blood Pressure 161.29 cm 82.33 kg 120/64 mm[Hg] 12/07/2009 Height Weight Blood Pressure 165.1 cm 84.59 kg 120/80 mm[Hg] 04/06/2009 Blood Pressure 112/88 mm[Hg] 09/18/2008 Height Weight Blood Pressure 162.31 cm 83.91 kg 128/84 mm[Hg] 12/10/2007 Blood Pressure 128/84 mm[Hg] 08/03/2006 Height Weight Blood Pressure 165.1 cm 85.05 kg 110/76 mm[Hg] 03/16/2006 Height Weight Blood Pressure 165.1 cm 83.91 kg 112/74 mm[Hg] 06/08/2005 Height Weight Blood Pressure 165.1 cm 83.01 kg 100/60 mm[Hg]
[2021-12-21 21:33] LABS: ESR 58 mm/hr (0-30); HCT 38.8 % (36.0-46.0); HGB 11.7 g/dL (11.2-15.7); MCH 27.8 pg (27.0-33.0); MCHC 30.2 % (32.0-36.0); MCV 92 fL (80-95); Platelet Count 331 10^3/uL (130-400); RBC 4.21 10^6/uL (3.93-5.22); RDW 13.6 % (11.7-14.6); RDW-SD 46.4 fL; WBC 6.13 10^3/uL (4.4-10.8)
[2021-12-21 22:07] LABS: ALT 21 U/L (14-59); AST 23 U/L (15-37); Albumin 3.8 g/dL (3.4-5.0); Alkaline Phosphatase 98 U/L (46-116); Anion Gap 9.1 mmol/L (3-11); BUN 18 mg/dL (7-18); Bilirubin, Total 0.4 mg/dL (0.2-1.0); C-Reactive Protein 3.56 mg/dL (0.0-0.3); CO2 26.9 mmol/L (21.0-32.0); Calcium 9.1 mg/dL (8.5-10.1); Chloride 103 mmol/L (98-107); Estimated GFR 56.56 (mL/min/1.73m2); Glucose 80 mg/dL (74-106); Sodium 139 mmol/L (136-145); Total Protein 7.5 g/dL (6.4-8.2)
== END 2021-12-21 16:26 | disposition home or self-care (01) ==
LOC: NCHCN 16:25
PROVIDERS: PCP Internal Medicine; Visit Provider Internal Medicine
DX: M05.10 Rheumatoid lung disease with rheumatoid arthritis of unspecified site (principal)
CPT/HCPCS: 80053; 85027; 85652; 86140

== ENCOUNTER 2022-01-31 16:53 | Outpatient (REF) | payer MEDICARE, SELFPAY ==
--- OUTSIDE RECORDS SUMMARY | 2022-01-31 16:56 | XMS_ITS ---
:1960 Author Care Team Providers Name Role Phone SANFORD CABELLO MD Primary Care Provider [phone] CASSANDRA ABAD MD General Surgeon Unavailable Allergies Code Code System Name Reaction Severity Status Onset 20360928 RxNorm Biaxin ? ? Active ? 37396 RxNorm Halobetasol Rash ? Active ? Medications Name Status Start Date Stop Date ? ? acetaminophen 300 mg-codeine 30 mg tablet Completed ? 03/29/2020 amitriptyline 25 mg tablet Completed 09/13/202109/15 Take 1 tablet 3 times a day by oral route. replaces imipramine home med amoxicillin 875 mg-potassium clavulanate 125 mg tablet Active 09/13/2021 Not available Take 1 tablet twice a day by oral route for 10 days. azelastine 137 mcg (0.1 %) nasal spray aerosol Completed ? 03/29/2020 azithromycin 250 mg tablet Completed ? 03/29 [...] 09/14/2021 Enbrel SureClick 50 mg/mL (1 mL) subcutaneous Completed 09/14/2021 pen injector Estrace 0.01% (0.1 mg/gram) vaginal [...] 09/13/2021 0 09/14/2021 halobetasol propionate 0.05 % topical ointment Completed ? 03/18/2018 hydroxychloroquine 200 mg tablet Active 09/13/2021 Not [...] days. not exact formulation, best option in [place] Proventil HFA 90 mcg/actuation aerosol inhaler Active [...] start day 2 triamcinolone acetonide 0.1 % topical ointment Completed ? 09/13/2021 Valium 2 mg tablet Completed 09/13/2021 09/19/2021 Take 1 tablet every 6 hours by oral route as needed. Valium 5 mg tablet Completed 09/13/2021 09/19/2021 Take 1 tablet twice a day by oral route for 30 days. Vitamin B-12 1,000 mcg tablet Active 09/13/2021 No t available Take 1 tablet every day by oral route for 30 days. Notes: Meds updated with 09/14/21 Problems Name Status Onset Date Source ? Genital Lichen Sclerosus Active 07/19/2018 ? Rheumatoid Arthritis Active 09/10/2021 ? Wernicke's Disease Active 09/13/2021 ? Generalized Anxiety Disorder Active 09/13/2021 ? Wernicke's Hemianopic Pupil Active 09/13/2021 ? Pulmonary Hypertension Active 09/13/2021 ? Pneumonia Active 09/13/2021 ? Sepsis Active 09/14/2021 ? 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 Alcohol Withdrawal Syndrome Active 09/14/2021 ? Body Mass Index 25-29 - Overweight Unknown ? History Epidermoid Cyst of Skin Unknown ? History Lumbosacral Radiculopathy Active ? Histor y Disorder of Skin And/or Subcutaneous Tissue Unknown ? History Gynecologic Examination Unknown ? History Screening Mammography Unknown ? History Procedure by Method Unknown ? History Menopause Present Active ? History Procedures Date Name Performed by ? ? Dilation and Curettage Information not a vailable ? Orthopedic Surgery Information not avai lable Notes: Right foot - rheuma toid arthritis; left foot surgery 02/05/2009; left foot 11/05/2009 and 10/20/2010 02/05/2018 MAMMO, Screening, Tomosynthesis, [facility] Radiology (Internal) Bilateral [address], [place] [id number] (Work Place) 10/13/2019 MAMMO, Screening, Tomosynthesis, [facility] Radiology (Internal) Bilateral [address], [place] [id number] (Work Place) 01/25/2021 MAMMO, Screening, Tomosynthesis, [facility] Radiology (Internal) Bilateral [address] [place] [address] (Work Place) Notes: Bunionectomy; Liver Biopdy 2003 Results Lab Results Date Name Specimen Result Interpretation Description Value Range Status Address ? 09/28/2021 BMP, Serum S High g/r 108 mg/dL 74-106 Final [place] or Plasma mg/dL [facility] [address] ? ? S High Bun 19 mg/dL 7-18 Final [place] mg/dL [facility] : [address] ? ? S High Crea 1.8 mg/dL 0.6-1.0 Final [facility] mg/dL [facility] : [address] t ? ? S ? Ca [...] ? S ? Cl 100 98-107 Final [place] mmol/l mmol/l [facility] (Internal) : [address] t ? ? S ? Tco2 28.3 21.0-32.0 Final [place] mmol/L mmol/L [facility] (Internal) : [address] t 09/27/2021 CBC W/ Auto BLD ? Wbc 8.3 5.0-10.0 Final [place] Diff 10*3/uL 10*3/uL [facility] (Internal) : [address] t ? ? BLD Low Rbc 3.57 4.10-5.30 Final [place] 10*6/uL 10*6/uL [facility] (Internal) : [address] t ? ? BLD Low Hgb 10.5 g/dL 12.0-16.0 Final Nort h g/dL [facility] (Internal) : [address] t ? ? BLD Low Hct 34.2 % 37.0-47.0 Final [facility] (Internal) : [address] t ? ? BLD ? Mcv 95.8 fL 80.0-96.0 Final [facility] L ab (Internal) : [address] t ? ? BLD ? Mch 29.4 pg 26.0-32.0 Final [facility] (Internal) : [address] t ? ? BLD Low Mchc 30.7 g/dL 31.0-35.0 Final Nort h g/dL [facility] (Internal) : [address] t ? ? BLD High Rdw 15.3 % 11.5-14.5 Final [facility] (Internal) : [address] t ? ? BLD High Plt 483 130-450 Final [place] 10*3/uL 10*3/uL [facility] (Internal) : [address] t ? ? BLD ? Anc 5.67 ? Final [place] 10*3/uL [facility] (Internal) : [address] t ? ? BLD High Nlr 3.44 0.00-3.20 Final [facility] L ab (Internal) : [address] t ? ? BLD ? Neutro 68.4 % 40.0-75.0 Final North % [facility] (Internal) : [address] t ? ? BLD Low Lymph 19.9 % 20.0-50.0 Final [place] % [facility] (Internal) : [address] ? ? BLD ? Crenshaw 8.4 % 2.0-10.0 Final [place] % [facility] : [address] ? ? BLD ? Eos 1.9 % 1.0-6.0 % Final [facility] (Internal) : [address] ? ? BLD ? Baso 1.0 % 0.0-1.0 % Final [facility] (Internal) : [address] t ? ? BLD ? Ig 0.4 % 0.0-0.9 % Final [facility] (Internal) : [address] t 09/27/2021 CMP, Serum S ? [...] [address] t ? ? S Low Na 135 136-145 Final [place] mmol/L mmol/L [facility] ([facility] : [address] t ? ? S High K 6.3 3.5-5.1 Final [place] mmol/L mmol/L [facility] ([facility] : [address] t ? ? S ? Cl 101 98-107 Final [place] mmol/l mmol/l [facility] (Internal) : [address] t ? ? S ? Tco2 25.9 21.0-32.0 Final [place] mmol/L mmol/L [facility] (Internal) : [address] t ? ? S ? Tp 8.0 g/dL 6.4-8.2 Final [place] g/dL [facility] (Internal) : [address] t ? ? S ? Alb 3.5 g/dL 3.4-5.0 Final [place] g/dL [facility] (Internal) : [address] t ? ? S ? Tbil 0.60 0.20-1.00 Final [place] mg/dL mg/dL [facility] (Internal) : [address] t ? ? S High Alp 124 U/L 46-116 Final [place] U/L [facility] (Internal) : [address] t ? ? S ? Alt 18 U/L 14-59 U/L Final [place] (Sgpt) [facility] (Internal) : [address] t ? ? S High Ast 51 U/L 15-37 U/L Final [place] (Sgot) [facility] (Internal) : [address] t 09/20/2021 CBC W/ Auto BLD ? Wbc 8.5 5.0-10.0 Final [place] Diff 10*3/uL 10*3/uL [facility] (Internal) : [address] ? ? BLD Low Rbc 3.17 4.10-5.30 Final [place] 10*6/uL 10*6/uL [facility] (Internal) : [address] ? ? BLD Low Hgb 9.6 g/dL 12.0-16.0 Final [place] g/dL [facility] (Internal) : [address] t ? ? BLD Low Hct 30.4 % 37.0-47.0 Final [place] % [facility] (Internal) : [address] ? ? BLD ? Mcv 95.9 fL 80.0-96.0 Final [facility] L ab (Internal) : [address] ? ? BLD ? Mch 30.3 pg 26.0-32.0 Final [facility] L ab (Internal) : [address] ? ? BLD ? Mchc 31.6 g/dL 31.0-35.0 Final Nort h g/dL [facility] (Internal) : [address] ? ? BLD High Rdw 15.9 % 11.5-14.5 Final [facility] (Internal) : [address] ? ? BLD ? Plt 449 130-450 Final [place] 10*3/uL 10*3/uL [facility] L ab (Internal) : [address] t ? ? BLD ? Anc 5.86 ? Final [place] 10*3/uL [facility] (Internal) : [address] ? ? BLD High Nlr 3.96 0.00-3.[address] [facility] L [facility] (Internal) : [address] ? ? BLD ? Neutro 68.6 % 40.0-75.0 Final [facility] (Internal) : [address] ? ? BLD Low Lymph 17.4 % 20.0-50.0 Final [facility] (Internal) : [address] t ? ? BLD High Crenshaw 10.1 % 2.0-10.0 Final [facility] (Internal) : [address] t ? ? BLD ? Eos 2.6 % 1.0-6.0 % Final [facility] (Internal) : [address] ? ? BLD ? Baso 0.8 % 0.0-1.0 % Final [facility] (Internal) : [address] ? ? BLD ? Ig 0.5 % 0.0-0.9 % Final [facility] (Internal) : [address] t 09/20/2021 CMP, Serum S ? g/r 105 mg/dL 74-106 Final [place] or Plasma mg/dL [facility] (Internal) [...] S ? mg 2.3 mg/dL 1.8-2.4 Final [place] QN, Serum mg/dL [facility] or Plasma Hospita l Lab (Internal) : [address] t 09/13/2021 SARS CoV 2 SWAB ? Covid isaiah-cov-2 isaiah-cov-2 Fin al [place] RNA PCR not not [facility] (COVID-19), Screen detected detected H ospital Lab QL, (Internal) : waterside worker-PCR, [address] Res[address] , [place] Specimen 09/07/2021 Cbc BLD High Wbc 10.7 5.0-10.0 Final Nort h 10*3/uL 10*3/uL [facility] ([facility] : [address] ? ? BLD Low Rbc 3.25 4.10-5.30 Final [place] 10*6/uL 10*6/uL [facility] (Internal) : [address] ? ? BLD Low Hgb 9.7 g/dL 12.0-16.0 Final [place] g/dL [facility] (Internal) : [address] ? ? BLD Low Hct 31.1 % 37.0-47.0 Final [facility] L ab (Internal) : [address] ? ? BLD ? Mcv 95.7 fL 80.0-96.0 Final [facility] L ab (Internal) : [address] ? ? BLD ? Mch 29.8 pg 26.0-32.0 Final [place] pg [facility] (Internal) : [address] ? ? BLD ? Mchc 31.2 g/dL 31.0-35.0 Final Nort h g/dL [facility] (Internal) : [address] ? ? BLD High Rdw 15.6 % 11.5-14.5 Final [facility] L ab (Internal) : [address] ? ? BLD ? Plt 434 130-450 Final [place] 10*3/uL 10*3/uL [facility] ab (Internal) [...] ? Alt 29 U/L 14-59 U/L Final [place] (Sgpt) [facility] (Internal) : [address] ? ? S High Ast 39 U/L 15-37 U/L Final [place] (Sgot) [facility] (Internal) : [address] 09/07/2021 Vancomycin, S High Vanco, 23.6 5.0-10.0 Final [place] Trough, Trough ug/mL ug/mL [facility] (Internal) : [address] t 09/04/2021 Ph, Venous BLD High Venous 7.54 [pH] 7.32-7.43 Fi nal [place] pH [pH] [facility] : [address] ? ? BLD ? Pco2 44 mm[hg] 33-47 Final [place] mm[hg] [facility] (Internal) : [address] t ? ? BLD ? TCO2, 39 mmol/L ? Final North Venous [facility] ab (Internal) : [address] ? ? BLD ? Base 14.0 ? Final [place] mmol/L [facility] (Internal) : [address] 09/04/2021 Lactic S ? La 0.8 0.7-2.1 Final [place] Acid, Blood mmol/L mmol/L [facility] (Internal) : [address] 09/04/2021 Gas Panel, BLD ? Tco2 38 mmol/L ? Final [place] Arterial [facility] L ab (Internal) : [address] ? ? BLD High Ph 7.52 [pH] 7.35-7.45 Final Nort h [pH] [facility] ab (Internal) : [address] ? ? BLD ? Pco2 45 mm[hg] 33-47 Final [place] mm[hg] [facility] (Internal) : [address] ? ? BLD Low Po2 65 mm[hg] 80-100 Final [place] mm[hg] [facility] (Internal) : [address] ? ? BLD Low O2 Sat 94 % 95-98 % Final [facility] L ab (Internal) : [address] ? ? BLD ? Base 12.5 ? Final [place] mmol/L [facility] ([facility] : [address] ? ? BLD ? Hco3 36.7 ? Final [place] mmol/L [facility] (Internal) : [address] [place] ? ? BLD ? Na 141 ? Final [place] (Arteria mmol/L [facility] l) [facility] L ab (Internal) : [address] ? ? BLD ? K 2.8 ? Final [place] (Arteria mmol/L [facility] l) [facility] L ab (Internal) : [address], [place] ? ? BLD ? pO2(A/A 67.50 ? Final [place] ) [facility] (Internal[facility] : [address] [place] [address] ? ? BLD ? Fio2 2.5L nc ? Final [facility] L ab (Internal) : [address] ? ? BLD ? Site right ? Final [place] radial [facility] (Internal) : [address] ? ? BLD ? Jose n/a ? Final [place] Test [facility] (Internal) : [address] ? ? BLD ? Resp sw ? Final [facility] (Internal[facility] : [address] t 09/03/2021 Ph, Venous BLD High Venous 7.56 [pH] 7.32-7.43 Fi nal [place] pH [pH] [facility] ([facility] : [address] ? ? BLD ? Pco2 39 mm[hg] 33-47 Final [place] mm[hg] [facility] (Internal[facility] : [address] ? ? BLD ? TCO2, 36 mmol/L ? Final [place] Venous [facility] (Internal) : [address] ? ? BLD ? Base 11.1 ? Final [place] mmol/L [facility] ([facility] : [address] 09/03/2021 Ph, Venous BLD High Venous 7.55 [pH] 7.32-7.43 Fi nal [place] pH [pH] [facility] ([facility] : [address] ? ? BLD ? Pco2 41 mm[hg] 33-47 Final [place] mm[hg] [facility] (Internal) : [address] ? ? BLD ? TCO2, 38 mmol/L ? Final [place] Venous [facility] (Internal) : [address] ? ? BLD ? Base 12.7 ? Final [place] mmol/L [facility] (Internal) : [address] t 09/03/2021 Cbc BLD High Wbc 15.1 5.0-10.0 Final Nort h 10*3/uL 10*3/uL [facility] ([facility] : [address] ? ? BLD Low Rbc 3.74 4.10-5.30 Final [place] 10*6/uL 10*6/uL [facility] (Internal) : [address] ? ? BLD Low Hgb 11.2 g/dL 12.0-16.0 Final Nort h g/dL [facility] (Internal) : [address] ? ? BLD Low Hct 34.3 % 37.0-47.0 Final [facility] L ab (Internal) : [address] ? ? BLD ? Mcv 91.7 fL 80.0-96.0 Final [facility] L ab (Internal) : [address] ? ? BLD ? Mch 29.9 pg 26.0-32.0 Final [facility] (Internal) : [address] ? ? BLD ? Mchc 32.7 g/dL 31.0-35.0 Final Nort h g/dL [facility] (Internal) : [address] ? ? BLD High Rdw 14.9 % 11.5-14.5 Final [facility] L ab (Internal) : [address] ? ? BLD ? Plt 290 130-450 Final [place] 10*3/uL 10*3/uL [facility] (Internal) : [address] ? ? BLD ? Anc 11.98 ? Final [place] 10*3/uL [facility] (Internal) : [address] t 09/03/2021 BMP, Serum S High g/r [...] Dr t ? ? S Low Ca 8.2 [...] [address] Dr t ? ? S High Tco2 34.3 21.0-32.0 Final [place] mmol/L mmol/L [facility] ([facility] : [address] 08/31/2021 Lactic S ? La 2.1 0.7-2.1 Final [place] Acid, Blood mmol/L mmol/L [facility] (Internal) : [address] [facility] 08/30/2021 Lactic S High La 2.6 0.7-2.1 Final [place] Acid, Blood mmol/L mmol/L [facility] (Internal) : [address] [facility] 08/30/2021 Lactic S High La 3.1 0.7-2.1 Final [place] Acid, Blood mmol/L mmol/L [facility] ab (Internal) : [address] [facility] t 08/29/2021 Lactic S High La 4.3 [...] detected H ospital Lab QL, (Internal) : waterside worker-PCR, [address] , [address] [...] Bun 16 mg/dL 7-18 Final [place] mg/dL [facility] (Internal) : [address] ? ? S High Crea 1.2 mg/dL 0.6-1.0 Final [place] mg/dL [facility] (Internal) : [address] ? ? S ? Ca 9.8 mg/dL 8.5-10.1 Final [place] mg/dL [facility] (Internal) : [address] ? ? S ? Na 138 136-145 Final [place] mmol/L mmol/L [facility] (Internal) : [address] ? ? S ? K 4.2 3.5-5.1 Final [place] mmol/L mmol/L [facility] ab (Internal) : [address] ? ? S ? Cl 98 mmol/l 98-107 Final [place] mmol/l [facility] ab (Internal) : [address] ? ? S ? Tco2 26.4 21.0-32.0 Final [place] mmol/L mmol/L [facility] (Internal) : [address] 08/29/2021 CBC W/ Auto BLD ? Wbc 5.1 5.0-10.0 Final [place] Diff 10*3/uL 10*3/uL [facility] ab (Internal) : [address] ? ? BLD ? Rbc 4.76 4.10-5.30 Final [place] 10*6/uL 10*6/uL [facility] ab (Internal) : [address] ? ? BLD ? Hgb 14.4 g/dL 12.0-16.0 Final Nort h g/dL [facility] ab (Internal) : [address] ? ? BLD ? Hct 44.3 % 37.0-47.0 Final [facility] Hospital L ab (Internal) : [address] ? ? BLD ? Mcv 93.1 fL 80.0-96.0 Final [facility] L ab (Internal) : [address] ? ? BLD ? Mch 30.3 pg 26.0-32.0 Final [place] pg [facility] L ab (Internal) : [address] ? ? BLD ? Mchc 32.5 g/dL 31.0-35.0 Final Nort h g/dL [facility] L ab (Internal) : [address] ? ? BLD ? Rdw 13.7 % 11.5-14.5 Final [facility] L ab (Internal) : [address] ? ? BLD ? Plt 161 130-450 Final [place] 10*3/uL 10*3/uL [facility] L ab (Internal) : [address] 08/29/2021 Differentia BLD Low Polys 30 % 40-75 % Final [facility], Manual, Countr y Blood Hospital L ab (Internal) : [address] ? ? BLD High Bands 46 % 0-5 % Final [facility] Hospital L ab (Internal) : [address] ? ? BLD Low Lymphs 6 % 20-50 % Final [facility] L ab (Internal) : [address] ? ? BLD ? Crenshaw 6 % 2-10 % Final [facility] L ab (Internal) : [address] ? ? BLD ? Eos 1 % 0-6 % Final [facility] L ab (Internal) : [address] ? ? BLD ? Baso 0 % 0-1 % Final [facility] L ab (Internal) : [address] ? ? BLD ? Atyp 0 % ? Final [facility] Hospital L ab (Internal) : [address] ? ? BLD High Young 11 % 0-0 % Final [facility] L ab (Internal) : [address] ? ? BLD ? Plts, adequate adequate Final [place] [address] ? ? BLD ? RBC normal normal [facility]Internal[facility] : [address] t 08/29/2021 Neutrophil BLD ? Anc-man 3.86 ? Final [place] Count, ual 10*3/uL [facility] (Anc), (Internal) : Blood [address] t 08/29/2021 Nlr-manual BLD High Nlr - 12.67 0.00-3.20 Final [facility] Hospital L ab (Internal) : [address] 08/29/2021 Culture, BLD ? Final microbiol ? Final N orth Blood 1 ogy [facility] results Hospital Lab (Internal) : [address] 08/29/2021 Culture, BLD ? Final microbiol ? Final N orth Blood 2 ogy [facility] results Hospital Lab (Internal) : [address] 08/29/2021 Urinalysis, UR ? UA-colo yellow pale Final [place] Dipstick, r yellow Country [facility] Hospital L ab Micro (Internal) : [address] ? ? UR ? UA-appe clear clear Final [facility] Hospital L ab (Internal) : [address] ? ? UR ? UA-spec 1.025 1.003-1.0 Final North Grav 35 [facility] ab (Internal) : [address] ? ? UR ? UA-pH 5.0 [pH] 4.6-8.0 Final [place] [pH] [facility] ab (Internal) : [address] ? ? UR ? UA-leuk negative negative Final Nort h Est [facility] ab (Internal) : [address] ? ? UR ? UA-nitr negative negative Final Nort h ite [facility] ab (Internal) : [address] ? ? UR ABNORMAL UA-prot trace negative Final Nort h [facility] ab (Internal) : [address] ? ? UR ? UA-gluc negative negative Final Nort [facility] ab (Internal) : [address] ? ? UR ? UA-keto negative negative Final Nort h ne [facility] ab (Internal) : [address] ? ? UR ? UA-urob normal normal Final [facility] ab (Internal) : [address] ? ? UR ABNORMAL UA-bili small negative Final [facility] ab (Internal[facility] : [address] ? ? UR ABNORMAL UA-bloo small negative Final Nort h d [facility] ab (Internal) : [address] 08/29/2021 Hepatic S High Tbil 1.20 0.20-1.00 Final No rth Function mg/dL mg/dL [facility] Hospital ab Serum (Internal) : [address] ? ? S High Dbil 0.64 0.00-0.20 Final [place] mg/dL mg/dL [facility] ab (Internal) : [address] ? ? S High Alp 222 U/L 46-116 Final North U/L [facility] ab (Internal) : [address] ? ? S High Alt 431 U/L 14-59 U/L Final [place] (Sgpt) [facility] ab (Internal) : [address] ? ? S High Ast 583 U/L 15-37 U/L Final [place] (Sgot) [facility] L ab (Internal) : [address] ? ? S High Ggt 69 U/L 5-55 U/L Final [facility] L ab (Internal) : [address] ? ? S ? Tp 8.1 g/dL 6.4-8.2 Final [place] g/dL [facility] L ab (Internal) : [address] ? ? S Low Alb 3.2 g/dL 3.4-5.0 Final [place] g/dL [facility] L ab (Internal) : [address] 08/29/2021 Urinalysis, UR ? UA-WBC 0-3 [hpf] 0-3 [hpf] F inal [place] Microscopic Count [facility] L ab (Internal) : [address] ? ? UR ABNORMAL UA-RBC 10-25 0-2 [hpf] Final Nort h [hpf] [facility] L ab (Internal) : [address] ? ? UR ? UA-bact rare none seen Final [place] eria [hpf] [hpf] [facility] ab (Internal) : [address] ? ? UR ? UA-epit rare none seen Final [place] helial [hpf] [hpf] [facility] [facility] (Internal) : [address] [place] ? ? UR ? UA-mucu none seen none seen Final No rth s [hpf] [hpf] [facility] (Internal) : [address] t ? ? UR ? Amorph few [hpf] ? Final [place] [facility] (Internal) : [address] t ? ? UR ? Granula few [hpf] ? Final [place] [facility] (Internal) : [address] 08/29/2021 Lactic S High La 2.2 0.7-2.1 Final [place] Acid, Blood mmol/L mmol/L [facility] (Internal) : [address] 04/04/2021 Pap Test, MISC ? Hpv see ? Final Nor th Thinprep, report [facility] (Internal) : [address], [place] ? ? MISC ? Pap see ? Final [place] [facility] (Internal) : [address] ? ? MISC ? Report (see ? Final North below) [facility] (Internal) : [address] t 07/08/2018 Pathology TISS - Report results ? Final N orth Study below [facility] (Internal) : [address] t 02/05/2018 Pap Test, MISC [...] results ? Final N orth Study below [facility] (Internal) : [address] [...] ? Venpn* ? ? Final North e [facility] (Internal) : [address] t 10/07/2016 BMP, Serum S ? g/r 90 mg/dL 74-106 Final [place] or Plasma mg/dL [facility] (Internal) : [address] t ? ? S Low Bun 6 mg/dL 7-17 Final [place] mg/dL [facility] (Internal) : [address] t ? ? S ? Crea 0.60 0.52-1.04 Final [place] mg/dL mg/dL [facility] (Internal) : [address] t ? ? S ? Ca 9.9 mg/dL 8.4-10.2 Final [place] mg/dL [facility] (Internal) : [address] t ? ? S ? Na 141 137-145 Final [place] mmol/L mmol/L [facility] (Internal) : [address] t ? ? S ? K 3.6 3.5-5.1 Final [place] mmol/L mmol/L [facility] (Internal) : [address] t ? ? S ? Cl 100 98-107 Final [place] mmol/L mmol/L [facility] (Internal) : [address] t ? ? S ? Tco2 25.0 22.0-30.0 Final [place] mmol/L mmol/L [facility] (Internal) : [address] t 10/07/2016 CBC W/ Auto BLD High Wbc 10.4 5.0-10.0 Final [place] Diff 10*3/uL 10*3/uL [facility] (Internal) : [address] t ? ? BLD ? Rbc 4.43 4.10-5.30 Final [place] 10*6/uL 10*6/uL [facility] (Internal) : [address] t ? ? BLD ? Hgb 13.4 g/dL 12.0-16.0 Final Nort h g/dL [facility] (Internal) : [address] t ? ? BLD ? Hct 40.7 % 37.0-47.0 Final [facility] (Internal) : [address] ? ? BLD ? Mcv 91.9 fL 80.0-96.0 Final [place] fL [facility] (Internal) : [address] t ? ? BLD ? Mch 30.2 pg 26.0-32.0 Final [place] pg [facility] (Internal) : [address] t ? ? BLD ? Mchc 32.9 g/dL 31.0-35.0 Final Nort h g/dL [facility] (Internal) : [address] t ? ? BLD ? Rdw 14.4 % 11.5-14.5 Final [facility] (Internal) : [address] ? ? BLD High Plt 551 130-450 Final [place] 10*3/uL 10*3/uL [facility] (Internal) : [address] ? ? BLD ? Anc 6.83 ? Final [place] 10*3/uL [facility] (Internal) : [address] [place] ? ? BLD ? Neutro 65.7 % 40.0-75.0 Final [facility] (Internal) : [address] [place] ? ? BLD ? Lymph 21.1 % 20.0-50.0 Final [facility] (Internal) : [address] [place] ? ? BLD ? [place] 9.6 % 2.0-10.0 Final [facility] (Internal) : [address] [place] ? ? BLD ? Eos 2.0 % 1.0-6.0 % Final [facility] (Internal) : [address] [place] ? ? BLD ? Baso 0.5 % 0.0-1.0 % Final [facility] (Internal) : [address] [place] ? ? BLD High Ig 1.1 % 0.0-0.9 % Final [facility] (Internal) : [address] [place] Past Encounters 09/19/2021 Generalized Anxiety Disorder; Methicilli n Resistant Staphylococcus Aureus Infection; Pneumonia; Rheumatoid Arthritis; Pulmonary Hypertension; Anemia; Hypomagnesemia; Alcohol Abuse; Gallbladder Problem; Spasm of Bladder; Hypokalemia; Vertigo; Asthma; Muscle Weakness Clarita Estrada MD: [address] [place] [address], Ph. 04/04/2021 Gynecologic Examination Nancy Abreu CNM: [address] [place] [address], Ph. Social History Tobacco Smoking Status Former Smoker Notes: Socially over 30 years ago Vaccine List Vaccine Type influenza, seasonal, injectable 06/08/2005 influenza, seasonal, injectable, preserv ative free 06/20/2008 rubella tetanus toxoid, adsorbed 08/20/1996 05/20/2008 Plan of Care Reminders Provider Appointments None recorded. ? ? Lab None recorded. ? ? Referral None recorded. ? ? Procedures None recorded. ? ? Surgeries None recorded. ? ? Imaging None recorded. ? ? Vitals 09/19/2021 01:20PM [facility] 40 Height Weight BMI Blood Pressure 157.48 [...]
[2022-01-31 20:10] LABS: Abs Immature Grans 0.02 10^3/uL (0.0-0.06); Absolute Basophil Count 0.04 10^3/uL (0.0-0.2); Absolute Eosinophil Count 0.26 10^3/uL (0.0-0.7); Absolute Lymphocyte Count 1.94 10^3/uL (1.2-3.4); Absolute Monocyte Count 0.98 10^3/uL (0.1-0.8); Absolute Neutrophil Count 4.41 10^3/uL (1.2-6.7); Basophils % 0.5; Eosinophils % 3.4; HCT 32.7 % (36.0-46.0); HGB 10.2 g/dL (11.2-15.7); Immature Grans % 0.3; Lymphocytes % 25.4; MCH 26.6 pg (27.0-33.0); MCHC 31.2 % (32.0-36.0); MCV 85 fL (80-95); MPV 10.3 fL (8.0-11.0); Monocytes % 12.8; Neutrophils % 57.6; Platelet Count 425 10^3/uL (130-400); RBC 3.84 10^6/uL (3.93-5.22); RDW-SD 43.3 fL; WBC 7.65 10^3/uL (4.4-10.8)
== END 2022-01-31 16:54 | disposition home or self-care (01) ==
LOC: NCHCN 16:53
PROVIDERS: PCP Internal Medicine; Visit Provider Nurse Practitioner Family
DX: R06.02 Shortness of breath (principal)
CPT/HCPCS: 85025

== ENCOUNTER 2022-02-06 19:33 | Outpatient (REF) | payer MEDICARE, SELFPAY ==
[2022-02-06 20:14] LABS: ESR 78 mm/hr (0-30)
[2022-02-06 20:15] LABS: HCT 34.8 % (36.0-46.0); HGB 10.4 g/dL (11.2-15.7); MCH 25.9 pg (27.0-33.0); MCHC 29.9 % (32.0-36.0); MCV 87 fL (80-95); MPV 10.3 fL (8.0-11.0); Platelet Count 439 10^3/uL (130-400); RBC 4.01 10^6/uL (3.93-5.22); RDW 14.1 % (11.7-14.6); WBC 13.86 10^3/uL (4.4-10.8)
[2022-02-06 20:35] LABS: CREATININE 0.9 mg/dL (0.55-1.02)
[2022-02-06 20:56] LABS: C-Reactive Protein > 25.00 mg/dL (0.0-0.3)
== END 2022-02-06 19:34 | disposition home or self-care (01) ==
LOC: NCHCN 19:33
PROVIDERS: PCP Internal Medicine; Visit Provider Nurse Practitioner Family
DX: R06.02 Shortness of breath (principal); M13.0 Polyarthritis, unspecified
CPT/HCPCS: 85027; 85652; 82565; 86140

== ENCOUNTER 2022-03-10 20:12 | Outpatient (REF) | payer MEDICARE, SELFPAY ==
[2022-03-10 18:49] LABS: Abs Immature Grans 0.02 10^3/uL (0.0-0.06); Absolute Basophil Count 0.06 10^3/uL (0.0-0.2); Absolute Eosinophil Count 0.35 10^3/uL (0.0-0.7); Absolute Lymphocyte Count 1.33 10^3/uL (1.2-3.4); Absolute Neutrophil Count 5.02 10^3/uL (1.2-6.7); Basophils % 0.8; ESR 50 mm/hr (0-30); Eosinophils % 4.6; HCT 28.4 % (36.0-46.0); HGB 8.7 g/dL (11.2-15.7); Immature Grans % 0.3; Lymphocytes % 17.5; MCH 25.6 pg (27.0-33.0); MCHC 30.6 % (32.0-36.0); MCV 84 fL (80-95); MPV 9.6 fL (8.0-11.0); Monocytes % 10.6; Neutrophils % 66.2; Platelet Count 569 10^3/uL (130-400); RDW 16.1 % (11.7-14.6); RDW-SD 49.2 fL; WBC 7.58 10^3/uL (4.4-10.8)
[2022-03-10 19:30] LABS: ALT 14 U/L (14-59); AST 18 U/L (15-37); Albumin 2.9 g/dL (3.4-5.0); Alkaline Phosphatase 84 U/L (46-116); Anion Gap 8.3 mmol/L (3-11); BUN 23 mg/dL (7-18); Bilirubin, Total 0.3 mg/dL (0.2-1.0); CO2 25.7 mmol/L (21.0-32.0); CREATININE 1.3 mg/dL (0.55-1.02); Calcium 9.2 mg/dL (8.5-10.1); Chloride 104 mmol/L (98-107); Estimated GFR 41.78 (mL/min/1.73m2); Glucose 94 mg/dL (74-106); Potassium 4.7 mmol/L (3.5-5.1); Sodium 138 mmol/L (136-145); TSH 1.19 uIU/mL (0.36-3.74); Total Protein 7.9 g/dL (6.4-8.2)
[2022-03-10 19:38] LABS: C-Reactive Protein 6.68 mg/dL (0.0-0.3)
[2022-03-10 19:48] LABS: Hypochromasia 1+; Microcytosis 1+
== END 2022-03-10 20:13 | disposition home or self-care (01) ==
LOC: NCHCN 20:12
PROVIDERS: PCP Internal Medicine; Visit Provider Internal Medicine
DX: R00.0 Tachycardia, unspecified (principal); R06.09 Other forms of dyspnea; M06.9 Rheumatoid arthritis, unspecified; M12.811 Other specific arthropathies, not elsewhere classified, right shoulder; K74.60 Unspecified cirrhosis of liver
CPT/HCPCS: 80053; 85652; 84443; 85025; 86140

== ENCOUNTER 2022-03-17 18:56 | Outpatient (REF) | payer MEDICARE, SELFPAY ==
[2022-03-17 19:04] LABS: Iron 33 ug/dL (50-170); Total Iron Binding Capacity 248 ug/dL (250-450); Transferrin Sat 13 % (15-50)
[2022-03-17 19:13] LABS: Ferritin 72 ng/mL (8-252); Folate 11.8 ng/mL (8.6-20.0)
== END 2022-03-17 18:57 | disposition home or self-care (01) ==
LOC: NCHCN 18:56
PROVIDERS: PCP Internal Medicine; Visit Provider Internal Medicine
DX: D64.9 Anemia, unspecified (principal); R20.0 Anesthesia of skin; M85.80 Other specified disorders of bone density and structure, unspecified site
CPT/HCPCS: 85045; 82728; 82746; 83540; 83550

== ENCOUNTER 2022-05-01 16:36 | Outpatient (REF) | payer MEDICARE, SELFPAY ==
[2022-05-01 20:27] LABS: Abs Immature Grans 0.06 10^3/uL (0.0-0.06); Absolute Basophil Count 0.07 10^3/uL (0.0-0.2); Absolute Eosinophil Count 0.46 10^3/uL (0.0-0.7); Absolute Lymphocyte Count 2.44 10^3/uL (1.2-3.4); Absolute Monocyte Count 1.27 10^3/uL (0.1-0.8); Absolute Neutrophil Count 6.01 10^3/uL (1.2-6.7); Basophils % 0.7; Eosinophils % 4.5; HCT 28.5 % (36.0-46.0); HGB 8.6 g/dL (11.2-15.7); Immature Grans % 0.6; Lymphocytes % 23.7; MCH 25.9 pg (27.0-33.0); MCHC 30.2 % (32.0-36.0); MCV 86 fL (80-95); MPV 10.1 fL (8.0-11.0); Monocytes % 12.3; Neutrophils % 58.2; Platelet Count 621 10^3/uL (130-400); RBC 3.32 10^6/uL (3.93-5.22); RDW 17.2 % (11.7-14.6); WBC 10.31 10^3/uL (4.4-10.8)
[2022-05-01 20:57] LABS: ALT 16 U/L (14-59); AST 25 U/L (15-37); Alkaline Phosphatase 106 U/L (46-116); Anion Gap 9.4 mmol/L (3-11); BUN 20 mg/dL (7-18); Bilirubin, Total 0.3 mg/dL (0.2-1.0); C-Reactive Protein 11.17 mg/dL (0.0-0.3); CO2 24.6 mmol/L (21.0-32.0); CREATININE 1.2 mg/dL (0.55-1.02); Calcium 8.9 mg/dL (8.5-10.1); Chloride 97 mmol/L (98-107); Creatine Kinase 110 U/L (26-192); Estimated GFR 51.82 (mL/min/1.73m2); Glucose 76 mg/dL (74-106); Potassium 5.3 mmol/L (3.5-5.1); Sodium 131 mmol/L (136-145)
== END 2022-05-01 16:37 | disposition home or self-care (01) ==
LOC: LBN 16:36
PROVIDERS: PCP Internal Medicine; Visit Provider Internal Medicine
DX: M00.09 Staphylococcal polyarthritis (principal); M86.8X8 Other osteomyelitis, other site; M60.08 Infective myositis, other site
CPT/HCPCS: 80053; 82550; 85025; 86140

== ENCOUNTER 2022-10-13 11:19 | Outpatient (REF) | payer MEDICARE, SELFPAY ==
--- OUTSIDE RECORDS SUMMARY | 2022-10-13 11:26 | XMS_ITS | Continuity of Care Document ---
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 Role Phone [facility] Primary Care Physician Encounter [facility] Date(s): 08/24/22 - 08/26/22 [facility] [address] [place] [address] Encounter Diagnosis Symptomatic anemia(Discharge Diagnosis) - 08/24/22 Melena(Discharge Diagnosis) - 08/24/22 Rheumatoid arthritis(Discharge Diagnosis) - 08/25/22 Upper GI bleed(Discharge Diagnosis) - 08/26/22 Gastric ulcer(Discharge Diagnosis) - 08/26/22 Acute blood loss anemia(Discharge Diagnosis) - 08/26/22 Discharge Disposition: Home w/ Home Health Care Attending Physician: Vinny Castelan MD Admitting Physician: Vinny Castelan MD Allergies, Adverse Reactions, Alerts Substance Reaction Severity Status clarithromycin Unknown Active halobetasol topical Skin rash Unknown Active Biaxin Unknown Active Assessment and Plan Future Appointments Future Scheduled Tests Radiology* MG Mammo Screening Bilateral w/ [place] 03/13/22 Functional Status 08/26/22 Breakfast Percent 50 08/25/22 Living Environment Living Situation: [place] with home health, Other: VNA plus family assistance Current Home Treatments: Home Devices/Equipment Professional Skilled Services: Special Services and Community Resources: Sensory Deficits: Performed by: Rangel Sykes08/25/22 01:37:00 Lives In Apartment Lives With Alone Living Situation Home with home healt h, Other: VNA plus family assistance Home Barriers None Patient's Responsibilities Driving, Laundry, Meal preparation, Passenger, Personal ADL, Shopping Current Home Treatments IV therapy Home Equipment Infusion pump Professional Skilled Services Nursing, Other: [facility] 08/25/22 Family Member Travel History No recent t ravel Recent Travel History No recent travel Other exposure to Infectious Disease Non e Immunizations Given and Recorded Vaccine Date Status Refusal Reason influenza virus vaccine, inactivated 06/20/08 Slim rded influenza virus vaccine, inactivated 06/08/05 Slim rded diphth/tetanus/pertussis/polio/haemophil 1 05/20/08 Recorded diphth/tetanus/pertussis/polio/haemophil 2 08/20/96 Recorded DTaP, unspecified formulation 3 05/20/08 Recorded DTaP, unspecified formulation 4 08/20/96 Recorded rubella virus vaccine 08/20/00 Recorded 1Result Comment: tetanus toxoid, adsorbed 2Result Comment: tetanus toxoid, adsorbed 3Result Comment: wrong 4Result Comment: wrong Medications Carafate 1 g oral tablet 1 g = 1 tab, Oral, QID, # 56 tab, 0 Refill(s), Pharmacy: [id number], 157, cm, 08/24/22 18:58:00 EST, Height/Length Dosing, 68, kg, 08/24/22 18:58:00 EST, Weight Dosing Start Date: 08/26/22 Stop Date: 09/09/22 Status: Ordered Enbrel SureClick 50 mg/mL subcutaneous solution 50 mg =, Subcutaneous, every week, # 3.92 mL, 0 Refill(s) Start Date: 02/07/22 Status: Ordered ferrous sulfate 325 mg (65 mg elemental iron) oral delayed release tablet 325 mg = 1 tab, Oral, Daily, # 30 tab, 0 Refill(s) Start Date: 08/25/22 Status: Ordered folic acid 1 mg oral tablet 1 mg = 1 tab, Oral, Daily, Take for 30 days Start Date: 02/23/22 Status: Ordered hydroxychloroquine 200 mg oral tablet 200 mg = 1 tab, Oral, BID, 0 Refill(s) Start Date: 02/07/22 Status: Ordered imipramine 25 mg oral tablet 25 mg = 1 tab, Oral, TID Start Date: 02/23/22 Status: Ordered magnesium oxide 400 mg (241.3 mg elemental magnesium) oral tablet 400 mg = 1 tab, Oral, BID, 0 Refill(s) Start Date: 08/25/22 Status: Ordered oxyCODONE 5 mg oral capsule 5 mg = 1 cap, Oral, every 6 hr, PRN as needed for pain, # 4 cap, 0 Refill(s), Pharmacy: [id number], 160, cm, 02/09/22 13:58:00 EDT, Height/Length Dosing, 68, kg, 02/09/22 13:58:00 EDT, Weight Dosing Start Date: 02/09/22 Status: Ordered Probiotic Blend 2 million cell-50 mg capsule Probiotic Blend 2 million cell-50 mg capsule, 1 cap, Oral, Daily Start Date: 02/23/22 Status: Ordered Protonix 40 mg oral delayed release tablet 40 mg = 1 tab, Oral, BID, # 60 tab, 0 Refill(s), Pharmacy: [id number], 157, cm, 08/24/22 18:58:00 EST, Height/Length Dosing, 68, kg, 08/24/22 18:58:00 EST, Weight Dosing Start Date: 08/26/22 Status: Ordered thiamine 100 mg oral tablet 100 mg = 1 tab, Oral, Daily, thiamine HCl (vitamin B1) 100 mg tablet; for 30 days Start Date: 02/23/22 Status: Ordered Tylenol 650 mg = 2 tab, Oral, Tab, Once, First Dose: 08/24/22 21:31:00 EST, Stop Date: 08/24/22 21:31:00 EST, Physician Stop, STAT Start Date: 08/24/22 Stop Date: 08/24/22 Status: Completed vancomycin 650 mg =, IV Piggyback, every 12 hr, as an infusion over 60 minutes., 0 Refill(s) Start Date: 08/09/22 Status: Ordered Vitamin B12 1000 mcg oral tablet 1,000 mcg = 1 tab, Oral, Daily, for 30 days Start Date: 02/23/22 Status: Ordered Mental Status 08/25/22 Eye Opening Response Maggie Spontaneous ly Best Verbal Response Hatch Oriented Best Motor Response Hatch Obeys comman ds Hatch Coma Score 15 Problem List Condition Confirmation Course Effective Dates Status H ealth Status Informant Generalized anxiety disorder Confirmed 09/13/21 Active Genital lichen sclerosus Confirmed 07/19/18 Active History of alcohol use disorder Confirmed Active Lumbosacral radiculopathy Confirmed Active Menopause present Confirmed Active Methicillin resistant Staphylococcus aureus 1 Confirmed 08/29/21 Active Pneumonia Confirmed 09/13/21 Active Pulmonary hypertension Confirmed 09/13/21 Active Rheumatoid arthritis Confirmed 09/10/21 Active Rheumatoid arthritis Confirmed Active Sepsis Confirmed Active Wernicke's disease Confirmed 09/13/21 Active 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 1MRSA in blood culture needs a negative swab to come off precautions Procedures Procedure Date Related Diagnosis Body Site Status EGD - Esophagogastroduodenoscopy 08/24/22 Completed Due 03/2026 1 04/03/21 Completed Liver Biopsy 2002 Completed Bunionectomy Completed Dilation and curettage Co mpleted Procedure on foot 2 Compl eted 1Pap Due - 03/2026 05/22 - [facility] - LSIL; 06/08/05 - LSIL; 10/23/05 - [facility] - ASCUS/Neg - [facility] EXOCVX, 08/03/06 - ASCUS/POs; 10/16/06 - [facility] - LGSIL/Pos - [facility] EX[facility]XV; 04/16/07 - [facility] - ASCUS/Neg; 12/10/07 - WNL/Neg; 09/18/08 - WNL/Neg; 02/02/12 - WNL/Neg; 02/01/17 - ASCUS/Neg; 02/05/18 - Neg/Neg; 04/04/21 - Neg/Neg 2Right foot - rheumatoid arthritis; left foot surgery 02/05/2009; left foot 11/05/2009 and 10/20/2010 Results Laboratory List Name Date CBC w/o Diff 08/26/22 CBC w/o Diff 08/25/22 CBC w/o Diff 08/25/22 Comprehensive Metabolic Panel (CMP) Vancomycin Lvl Trough 08/25/22 ABO/Rh 08/24/22 Antibody Screen Gel 08/24/22 .Manual Differential (NCTY) 08/24/22 Comprehensive Metabolic Panel 08/24/22 SARS-CoV-2 (COVID-19)/Flu/RSV (GeneXpert ) 08/24/22 Urinalysis Microscopic 08/24/22 Urinalysis with Micro if Indicated and C ulture if Indicated 08/24/22 Most recent to oldest [Reference Range]: 1 2 3 WBC [5.0-10.0 x10^3/mcL] 8.6 x10^3/mcL (08/26/22 7:51 AM) 12.4 x10^3/mcL *HI* (08/25/22 10:44 PM) 11.0 x10^3/mcL *HI* (08/25/22 6:20 AM) RBC [4.1-5.3 x10^6/mcL] 3.3 x10^6/mcL *LOW* (08/26/22 7:51 AM) 3.4 x10^6/mcL *LOW* (08/25/22 10:44 PM) 2.7 x10^6/mcL *LOW* (08/25/22 6:20 AM) Segs Man [40-75 %] 84 % *HI* (08/24/22 7:35 PM) Lymph Man [20-50 %] 7 % *LOW* (08/24/22 7:35 PM) Toombs Man 6 % *NA* (08/24/22 7:35 PM) Eos Man 2 % *NA* (08/24/22 7:35 PM) BUN [7-18 mg/dL] 35 mg/dL *HI* (08/25/22 6:20 AM) 34 mg/dL *HI* (08/24/22 7:35 PM) UA Color Yellow (08/24/22 7:35 PM) UA WBC [0-3] 0-3 (08/24/22 7:35 PM) ABO/Rh Type A POS *Unknown* (08/24/22 7:45 PM) Glucose Level [74-106 mg/dL] 94 mg/dL (08/25/22 6:20 AM) 93 mg/dL (08/24/22 7:35 PM) Potassium Level [3.5-5.1 mmol/L] 4.0 mmol/L (08/25/22 6:20 AM) 4.1 mmol/L (08/24/22 7:35 PM) Vanco Tr [5.0-10.0 ug/mL] 14.7 ug/mL *HI* (08/25/22 6:20 AM) MCV [80.0-96.0] 83.9 (08/26/22 7:51 AM) 83.4 (08/25/22 10:44 PM) 82.4 (08/25/22 6:20 AM) UA Urobilinogen Normal (08/24/22 7:35 PM) RBC Morph Abnormal (08/24/22 7:35 PM) UA Bili [Negative] Negative (08/24/22 7:35 PM) UA Ketones Negative (08/24/22 7:35 PM) AST [15-37 unit/L] 11 unit/L *LOW* (08/25/22 6:20 AM) 12 unit/L *LOW* (08/24/22 7:35 PM) ALT [14-59 unit/L] 9 unit/L *LOW* (08/25/22 6:20 AM) 7 unit/L *LOW* (08/24/22 7:35 PM) MCHC [31.0-35.0 g/dL] 31.8 g/dL (08/26/22 7:51 AM) 32.4 g/dL (08/25/22 10:44 PM) 31.8 g/dL (08/25/22 6:20 AM) Sodium Level [136-145 mmol/L] 141 mmol/L (08/25/22 6:20 AM) 138 mmol/L (08/24/22 7:35 PM) UA RBC [0-2] 3-5 (08/24/22 7:35 PM) UA Leuk Est Negative (08/24/22 7:35 PM) UA Nitrite Negative (08/24/22 7:35 PM) UA Glucose [Negative] Negative (08/24/22 7:35 PM) Hct [37.0-47.0 %] 27.7 % *LOW* (08/26/22 7:51 AM) 28.1 % *LOW* (08/25/22 10:44 PM) 22.0 % *LOW* (08/25/22 6:20 AM) Microcyte Small (08/24/22 7:35 PM) UA Bacteria None Seen /HPF (08/24/22 7:35 PM) Calcium Level [8.5-10.1 mg/dL] 8.3 mg/dL *LOW* (08/25/22 6:20 AM) 8.4 mg/dL *LOW* (08/24/22 7:35 PM) Albumin Level [3.4-5.0 g/dL] 2.2 g/dL *LOW* (08/25/22 6:20 AM) 2.5 g/dL *LOW* (08/24/22 7:35 PM) Protein Total [6.4-8.2 g/dL] 5.8 g/dL *LOW* (08/25/22 6:20 AM) 6.2 g/dL *LOW* (08/24/22 7:35 PM) UA Protein Negative (08/24/22 7:35 PM) MCH [26.0-32.0 pg] 26.7 pg (08/26/22 7:51 AM) 27.0 pg (08/25/22 10:44 PM) 26.2 pg (08/25/22 6:20 AM) Bilirubin Total [0.2-1.0 mg/dL] 0.3 mg/dL (08/25/22 6:20 AM) 0.3 mg/dL (08/24/22 7:35 PM) Hgb [12.0-16.0 g/dL] 8.8 g/dL *LOW* (08/26/22 7:51 AM) 9.1 g/dL *LOW* (08/25/22 10:44 PM) 7.0 g/dL 1 *CRIT* (08/25/22 6:20 AM) Alk Phos [46-146 unit/L] 86 unit/L (08/25/22 6:20 AM) 99 unit/L (08/24/22 7:35 PM) UA Blood 1+ *ABN* (08/24/22 7:35 PM) UA Mucous None Seen /HPF (08/24/22 7:35 PM) Band Man [0-5 %] 0 % (08/24/22 7:35 PM) UA Spec Grav <=1.005 *NA* (08/24/22 7:35 PM) Platelets [130-450 x10^3/mcL] 390 x10^3/mcL (08/26/22 7:51 AM) 384 x10^3/mcL (08/25/22 10:44 PM) 346 x10^3/mcL (08/25/22 6:20 AM) CO2 [21-32 mmol/L] 26 mmol/L (08/25/22 6:20 AM) 26 mmol/L (08/24/22 7:35 PM) UA Squam Epithelial [None Seen] Rare (08/24/22 7:35 PM) UA pH 5.5 *NA* (08/24/22 7:35 PM) eGFR Non-AA [>=60] 69 (08/25/22 6:20 AM) 53 *LOW* (08/24/22 7:35 PM) eGFR AA [>=60] 69 (08/25/22 6:20 AM) 53 *LOW* (08/24/22 7:35 PM) UA Appear Clear (08/24/22 7:35 PM) Chloride Level [98-107 mmol/L] 109 mmol/L *HI* (08/25/22 6:20 AM) 104 mmol/L (08/24/22 7:35 PM) RDW-CV [11.7-17.0 %] 18.1 % *HI* (08/26/22 7:51 AM) 18.2 % *HI* (08/25/22 10:44 PM) 18.8 % *HI* (08/25/22 6:20 AM) UA Culture Ind?. Not Indicated (08/24/22 7:35 PM) Abs Neut Man 12.5 x10^3/mcL *NA* (08/24/22 7:35 PM) Anisocyte Small (08/24/22 7:35 PM) Creatinine Level [0.55-1.02 mg/dL] 0.94 mg/dL (08/25/22 6:20 AM) 1.17 mg/dL *HI* (08/24/22 7:35 PM) Antibody Screen Gel Negative ABSC (08/24/22 7:45 PM) Employed in healthcare? Unknown *NA* (08/24/22 7:35 PM) Symptomatic as defined by CDC? Unknown *NA* (08/24/22 7:35 PM) Hospitalized due to COVID-19? Unknown *NA* (08/24/22 7:35 PM) In ICU? Unknown *NA* (08/24/22 7:35 PM) Group care resident? Unknown *NA* (08/24/22 7:35 PM) status? Unknown *NA* (08/24/22 7:35 PM) SARS-CoV-2(Covid19)PCR(GXper t COVFLURSV) [Negative] Negative (08/24/22 7:35 PM) Flu A (GXpert COVFLURSV) [Negative] Negative (08/24/22 7:35 PM) RSV (GXpert COVFLURSV) [Negative] Negative (08/24/22 7:35 PM) Flu B (GXpert COVFLURSV) [Negative] Negative (08/24/22 7:35 PM) Baso Man [0-1 %] 1 % (08/24/22 7:35 PM) 1Result Comment: Called to and verbally verified by Rangel Isaacs at 0640 08/25/2022 06:41:26 EST Vital Signs Most recent to oldest [Reference Range]: 1 2 3 Temperature Tympanic [36.6-37.9 Deg C] 36.5 Deg C *LOW* (08/25/22 12:27 AM) 37.3 Deg C (08/24/22 9:45 PM) 37.2 Deg C (08/24/22 9:32 PM) Temperature Temporal Artery [36-38 Deg C] 36.8 Deg C (08/26/22 6:42 AM) 36.3 Deg C (08/26/22 2:00 AM) 36.7 Deg C (08/25/22 7:30 PM) Peripheral Pulse Rate [60-100 bpm] 74 bpm (08/26/22 6:42 AM) 93 bpm (08/26/22 2:00 AM) 98 bpm (08/25/22 7:30 PM) Heart Rate Monitored [60-100 bpm] 81 bpm (08/25/22 1:05 PM) 84 bpm (08/25/22 12:52 PM) 83 bpm (08/25/22 12:47 PM) Respiratory Rate [12-24 br/min] 19 br/min (08/26/22 6:42 AM) 18 br/min (08/26/22 2:00 AM) 18 br/min (08/25/22 7:30 PM) Blood Pressure [90-140/60-90 mmHg] 137/86mmHg (08/26/22 6:42 AM) 152/79mmHg *HI* (08/26/22 2:00 AM) 146/91mmHg *HI* (08/25/22 7:30 PM) Mean Arterial Pressure, Cuff [65-140 mmHg] 99 mmHg (08/25/22 12:52 PM) 111 mmHg (08/25/22 12:47 PM) 97 mmHg (08/25/22 12:42 PM) Mean Arterial Pressure Cuff 100 mmHg (08/26/22 6:42 AM) 102 mmHg (08/26/22 2:00 AM) 103 mmHg (08/25/22 7:30 PM) Blood Pressure Location Right arm (08/26/22 2:00 AM) Right arm (08/25/22 7:30 PM) Left arm (08/25/22 10:59 AM) Blood Pressure Method Automatic (08/26/22 2:00 AM) Automatic (08/25/22 7:30 PM) Automatic (08/25/22 10:59 AM) Weight 63 kg (08/26/22 6:42 AM) 62.6 kg (08/25/22 1:12 AM) Weight Dosing 68.00 kg (08/24/22 6:58 PM) Weight Estimated 68.00 kg (08/24/22 6:50 PM) Height/Length Dosing 157.000 cm (08/24/22 6:58 PM) Height/Length Estimated 157.00 cm (08/25/22 1:12 AM) 157.000 cm (08/24/22 6:50 PM) Social History Social History Type Response Tobacco Never tobacco user T obacco Use:. Sex Female Hospital Discharge Instructions Patient Education 08/25/2022 10:09:53 Gastrointestinal Bleeding, Lsra-[id number] Gastrointestinal Bleeding Gastrointestinal (GI) bleeding is bleeding somewhere along the path that food travels through the body (digestive tract). This path is anywhere between the mouth and the opening of the butt (anus). You may have blood in your poop (stool) or have black poop. If you throw up (vomit), there may be blood in it. This condition can be mild, serious, or even life-threatening. If you have a lot of bleeding, you may need to stay in the hospital. What are the causes? This condition may be caused by: ??? Irritation and swelling of the esophagus (esophagitis). The esophagus is part of the body that moves food from your mouth to your stomach. ??? Swollen veins in the butt (hemorrhoids). ??? Areas of painful tearing in the opening of the butt (anal fissures). These are often caused by passing hard poop. ??? Pouches that form on the colon over time (diverticulosis). ??? Irritation and swelling (diverticulitis) in areas where pouches have formed on the colon. ??? Growths (polyps) or cancer. Colon cancer often starts out as growths that are not cancer. ??? Irritation of the stomach lining (gastritis). ??? Sores (ulcers) in the stomach. What increases the risk? You are more likely to develop this condition if you: ??? Have a certain type of infection in your stomach (Helicobacter pylori infection). ??? Take certain medicines. ??? Smoke. ??? Drink alcohol. What are the signs or symptoms? Common symptoms of this condition include: ??? Throwing up (vomiting) material that has bright red blood in it. It may look like coffee grounds. ??? Changes in your poop. The poop may: ??? Have red blood in it. ??? Be black, look like tar, and smell stronger than normal. ??? Be red. ??? Pain or cramping in the belly (abdomen). How is this treated? Treatment for this condition depends on the cause of the bleeding. For example: ??? Sometimes, the bleeding can be stopped during a procedure that is done to find the problem (endoscopy or colonoscopy). ??? Medicines can be used to: ??? Help control irritation, swelling, or infection. ??? Reduce acid in your stomach. ??? Certain problems can be treated with: ??? Creams. ??? Medicines that are put in the butt (suppositories). ??? Warm baths. ??? Surgery is sometimes needed. ??? If you lose a lot of blood, you may need a blood transfusion. If bleeding is mild, you may be allowed to go home. If there is a lot of bleeding, you will need tostay in the hospital. Follow these instructions at home: ??? Take bkkt-lyb-oorvqcd and prescription medicines only as told by your doctor. ??? Eat foods that have a lot of fiber in them. These foods include beans, whole grains, and fresh fruits and vegetables. You can also try eating 1???3 prunes each day. ??? Drink enough fluid to keep your pee (urine) pale yellow. ??? Keep all follow-up visits as told by your doctor. This is important. Contact a doctor if: ??? Your symptoms do not get better. Get help right away if: ??? Your bleeding does not stop. ??? You feel dizzy or you pass out (faint). ??? You feel weak. ??? You have very bad cramps in your back or belly. ??? You pass large clumps of blood (clots) in your poop. ??? Your symptoms are getting worse. ??? You have chest pain or fast heartbeats. Summary ??? GI bleeding is bleeding somewhere along the path that food travels through the body (digestive tract). ??? This bleeding can be caused by many things. Treatment depends on the cause of the bleeding. ??? Take medicines only as told by your doctor. ??? Keep all follow-up visits as told by your doctor. This is important. This information is not intended to replace advice given to you by your health care provider. Make sure you discuss any questions you have with your health care provider. Document Revised: 03/19/2019 Document Reviewed: 03/19/2019 [employer] Patient Education ?? 2021 [employer]. 08/25/2022 10:09:47 Blood Transfusion, Adult, Dlvw-rt-Wzaq Blood Transfusion, Adult A blood transfusion is a procedure in which you receive blood through an IV tube. You may need thisprocedure because of: ??? A bleeding disorder. ??? An illness. ??? An injury. ??? A surgery. The blood may come from someone else (a donor). You may also be able to donate blood for yourself. The blood given in a transfusion is made up of different types of cells. You may get: ??? Red blood cells. These carry oxygen to the cells in the body. ??? White blood cells. These help you fight infections. ??? Platelets. These help your blood to clot. ??? Plasma. This is the liquid part of your blood. It carries proteins and other substances throughthe body. If you have a clotting disorder, you may also get other types of blood products. Tell your doctor about: ??? Any blood disorders you have. ??? Any reactions you have had during a blood transfusion in the past. ??? Any allergies you have. ??? All medicines you are taking, including vitamins, herbs, eye drops, creams, and pxpd-uuw-wntumbu medicines. ??? Any surgeries you have had. ??? Any medical conditions you have. This includes any recent fever or cold symptoms. ??? Whether you are or may be . What are the risks? Generally, this is a safe procedure. However, problems may occur. ??? The most common problems include: ??? A mild allergic reaction. This includes red, swollen areas of skin (hives) and itching. ??? Fever or chills. This may be the body's response to new blood cells received. This may happen during or up to 4 hours after the transfusion. ??? More serious problems may include: ??? Too much fluid in the lungs. This may cause breathing problems. ??? A serious allergic reaction. This includes breathing trouble or swelling around the face and lips. ??? Lung injury. This causes breathing trouble and low oxygen in the blood. This can happen within hours of the transfusion or days later. ??? Too much iron. This can happen after getting many blood transfusions over a period of time. ??? An infection or virus passed through the blood. This is rare. Donated blood is carefully testedbefore it is given. ??? Your body's defense system (immune system) trying to attack the new blood cells. This is rare. Symptoms may include fever, chills, nausea, low blood pressure, and low back or chest pain. ??? Donated cells attacking healthy tissues. This is rare. What happens before the procedure? Medicines Ask your doctor about: ??? Changing or stopping your normal medicines. This is important. ??? Taking aspirin and ibuprofen. Do not take these medicines unless your doctor tells you to take them. ??? Taking zttc-qtc-fdhkdly medicines, vitamins, herbs, and supplements. General instructions ??? Follow instructions from your doctor about what you cannot eat or drink. ??? You will have a blood test to find out your blood type. The test also finds out what type of blood your body will accept and matches it to the donor type. ??? If you are going to have a planned surgery, you may be able to donate your own blood. This may be done in case you need a transfusion. ??? You will have your temperature, blood pressure, and pulse checked. ??? You may receive medicine to help prevent an allergic reaction. This may be done if you have hada reaction to a transfusion before. This medicine may be given to you by mouth or through an IV tube. ??? This procedure lasts about 1???4 hours. Plan for the time you need. What happens during the procedure? An IV tube will be put into one of your veins. ??? The bag of donated blood will be attached to your IV tube. Then, the blood will enter through your vein. ??? Your temperature, blood pressure, and pulse will be checked often. This is done to find early signs of a transfusion reaction. ??? Tell your nurse right away if you have any of these symptoms: ??? Shortness of breath or trouble breathing. ??? Chest or back pain. ??? Fever or chills. ??? Red, swollen areas of skin or itching. ??? If you have any signs or symptoms of a reaction, your transfusion will be stopped. You may alsobe given medicine. ??? When the transfusion is finished, your IV tube will be taken out. ??? Pressure may be put on the IV site for a few minutes. ??? A bandage (dressing) will be put on the IV site. The procedure may vary among doctors and hospitals. What happens after the procedure? You will be monitored until you leave the hospital or clinic. This includes checking your temperature, blood pressure, pulse, breathing rate, and blood oxygen level. ??? Your blood may be tested to see how you are responding to the transfusion. ??? You may be warmed with fluids or blankets. This is done to keep the temperature of your body normal. ??? If you have your procedure in an outpatient setting, you will be told whom to contact to reportany reactions. Where to find more information To learn more, visit the [place]: [email or web address] Summary ??? A blood transfusion is a procedure in which you are given blood through an IV tube. ??? The blood may come from someone else (a donor). You may also be able to donate blood for yourself. ??? The blood you are given is made up of different blood cells. You may receive red blood cells, platelets, plasma, or white blood cells. ??? Your temperature, blood pressure, and pulse will be checked often. ??? After the procedure, your blood may be tested to see how you are responding. This information is not intended to replace advice given to you by your health care provider. Make sure you discuss any questions you have with your health care provider. Document Revised: 01/29/2020 Document Reviewed: 01/29/2020 Elsevier Patient Education ?? 2021 [employer] Follow Up Care 08/24/2022 18:41:42 With:Eric May MD Address: [address] [phone] When:09/08/2022 Comments:HOSPITAL FOLLOW UP Discharge instructions * Brenda Pina: PERFORM Event Display: Discharge Instructions Authored Date: [id number] JACE DEVENDRA Kimber :1960 Age:62 years Sex:Female Visit Date:08/24/2022 Primary Care Physician: Eric May MD Hospital Discharge Instructions We would like to thank you for allowing us to assist you with your healthcare needs. The following includes patient education materials and information regarding your injury/illness. After you leave the hospital, you may get your health information including your test results, physician notes and discharge information by accessing your Patient Portal. Your Next Steps Discharge Orders Discharge Activity Restrictions, as tolerated Discharge Diet Instruction, Regular home diet Discharge Follow Up Instructions, 08/26/22 8:43:00 EST, When following are met: Alert and awake, Follow up with PCP within 1 week. Call for appointment. Discharge after antibiotic is infused. Scheduled Future Appointments Sunday 8:00 AM EST ?? Follow Up Appointments Follow Up with??Eric May MD When:??09/08/2022 03:00 AM EST Why: HOSPITAL FOLLOW UP Where: [address] [phone] The Following Equipment Has Been Ordered for You Home Equipment - Infusion pump The Following Services Have Been Arranged for You Nursing, Other: [facility] Anticipated ADL Needs - None The Following Treatments Have Been Arranged for You Current Home Treatments - IV therapy Medications What How Much When Why Instructions Next Dose New pantoprazole (Protonix 40 mg oral delayed releasetablet) 1 tab Oral (given by mouth) 2 times a day Pickup at [facility] New sucralfate (Carafate 1 g oral tablet) 1 tab Oral (given by mouth) 4 times a day Duration: 2 weeks Pickup at [facility] Unchanged cyanocobalamin (Vitamin B12 1000 mcg oral tablet) 1 tab Oral (given by mouth) Every day for 30 days ?? Unchanged etanercept (Enbrel SureClick 50 mg/ mL subcutaneous solution) 50 Milligrams Subcutaneous (under the skin) Every week Unchanged ferrous sulfate (ferrous sulfate 325 mg (65 mg elemental iron) oral delayed release tablet) 1 tab Oral (given by mouth) Every day Unchanged folic acid (folic acid 1 mg oral tablet) 1 tab Oral (given by mouth) Every day Take for 30 days ?? Unchanged hydroxychloroquine (hydroxychloroquine 200 mg oral tablet) 1 tab Oral (given by mouth) 2 times a day Unchanged imipramine (imipramine 25 mg oral tablet) 1 tab Oral (given by mouth) 3 times a day Unchanged magnesium oxide (magnesium oxide 400 mg (241.3 mg elemental magnesium) oral tablet) 1 tab Oral (given by mouth) 2 times a day Unchanged Other Prescription (Probiotic Blend 2 million cell-50 mg capsule) 1 Capsules Oral (given by mouth) Every day Unchanged oxyCODONE (oxyCODONE 5 mg oral capsule) 1 Capsules Oral (given by mouth) Every 6 hours as needed for as needed for pain Unchanged thiamine (thiamine 100 mg oral tablet) 1 tab Oral (given by mouth) Every day thiamine HCl (vitamin B1) 100 mg tablet; for 30 days ?? Unchanged vancomycin 650 Milligrams IV Piggyback Every 12 hours bone/joint infection as an infusion over 60 minutes. ?? Pharmacy Information [facility]: [address], [place] [id number] [phone] ?? What How Much When Comments Stop Taking albuterol (Proventil HFA 90 mcg/ inh inhalation aerosol) 2 Puffs Inhale (breathe in) Every 4 hours as needed for other (see comment) Take as needed ?? Stop Taking benzonatate (benzonatate 200 mg oral capsule) 1 Capsules Oral (given by mouth) 3 times a day as needed for other (see comment) Take as needed ?? Stop Taking cephalexin (!-Keflex 500 mg oral capsule) 1 Capsules Oral (given by mouth) 4 times a day Duration: 7 Days Stop Taking cyclobenzaprine (!-Flexeril) Stop Taking cyclobenzaprine (cyclobenzaprine 10 mg oral tablet) 1 tab Oral (given by mouth) 3 times a day as needed for as needed for muscle spasm Stop Taking furosemide (furosemide 40 mg oral tablet) 1 tab Oral (given by mouth) Every morning Stop Taking ipratropium-albuterol (ipratropium-albuterol 0.5 mg-2.5 mg/ 3 mL inhalation solution) 3 Milliliters Nebulized inhalation (inhale using nebulizer) Every 6 hours as needed for other (see comment) Take as needed ?? Stop Taking meclizine (meclizine 25 mg oral tablet) 1 tab Oral (given by mouth) 3 times a day as needed for as needed for dizziness Stop Taking methotrexate (methotrexate 2.5 mg oral tablet) 6 tab Oral (given by mouth) Every 6 hours Stop Taking montelukast (montelukast 10 mg oral tablet) 1 tab Oral (given by mouth) Every day Stop Taking naproxen (naproxen 500 mg oral tablet) 0.5 tab Oral (given by mouth) 2 times a day Stop Taking ondansetron (ondansetron 4 mg oral tablet, disintegrating) 1 tab Stop Taking spironolactone (spironolactone 25 mg oral tablet) 1 tab Oral (given by mouth) Every day Your Summary Your Care Team Admitting Physician - Vinny Castelan MD Attending Physician - Vinny Castelan MD Primary Care Physician - [place] [facility] Your Diagnosis Symptomatic anemia Melena Rheumatoid arthritis Upper GI bleed Gastric ulcer Acute blood loss anemia Education Materials Gastrointestinal Bleeding Gastrointestinal (GI) bleeding is bleeding somewhere along the path that food travels through the body (digestive tract). This path is anywhere between the mouth and the opening of the butt (anus). You may have blood in your poop (stool) or have black poop. If you throw up (vomit), there may be blood in it. This condition can be mild, serious, or even life-threatening. If you have a lot of bleeding, you may need to stay in the hospital. What are the causes? This condition may be caused by: ? Irritation and swelling of the esophagus (esophagitis). The esophagus is part of the body that moves food from your mouth to your stomach. ? Swollen veins in the butt (hemorrhoids). ? Areas of painful tearing in the opening of the butt (anal fissures). These are often caused by passing hard poop. ? Pouches that form on the colon over time (diverticulosis). ? Irritation and swelling (diverticulitis) in areas where pouches have formed on the colon. ? Growths (polyps) or cancer. Colon cancer often starts out as growths that are not cancer. ? Irritation of the stomach lining (gastritis). ? Sores (ulcers) in the stomach. What increases the risk? You are more likely to develop this condition if you: ? Have a certain type of infection in your stomach (Helicobacter pylori infection). ? Take certain medicines. ? Smoke. ? Drink alcohol. What are the signs or symptoms? Common symptoms of this condition include: ? Throwing up (vomiting) material that has bright red blood in it. It may look like coffee grounds. ? Changes in your poop. The poop may: ? Have red blood in it. ? Be black, look like tar, and smell stronger than normal. ? Be red. ? Pain or cramping in the belly (abdomen). How is this treated? Treatment for this condition depends on the cause of the bleeding. For example: ? Sometimes, the bleeding can be stopped during a procedure that is done to find the problem (endoscopy or colonoscopy). ? Medicines can be used to: ? Help control irritation, swelling, or infection. ? Reduce acid in your stomach. ? Certain problems can be treated with: ? Creams. ? Medicines that are put in the butt (suppositories). ? Warm baths. ? Surgery is sometimes needed. ? If you lose a lot of blood, you may need a blood transfusion. If bleeding is mild, you may be allowed to go home. If there is a lot of bleeding, you will need tostay in the hospital. Follow these instructions at home: ? Take mfxa-zzp-ymqhcrl and prescription medicines only as told by your doctor. ? Eat foods that have a lot of fiber in them. These foods include beans, whole grains, and fresh fruits and vegetables. You can also try eating 1???3 prunes each day. ? Drink enough fluid to keep your pee (urine) pale yellow. ? Keep all follow-up visits as told by your doctor. This is important. Contact a doctor if: ? Your symptoms do not get better. Get help right away if: ? Your bleeding does not stop. ? You feel dizzy or you pass out (faint). ? You feel weak. ? You have very bad cramps in your back or belly. ? You pass large clumps of blood (clots) in your poop. ? Your symptoms are getting worse. ? You have chest pain or fast heartbeats. Summary ? GI bleeding is bleeding somewhere along the path that food travels through the body (digestive tract). ? This bleeding can be caused by many things. Treatment depends on the cause of the bleeding. ? Take medicines only as told by your doctor. ? Keep all follow-up visits as told by your doctor. This is important. This information is not intended to replace advice given to you by your health care provider. Make sure you discuss any questions you have with your health care provider. Document Revised: 03/19/2019 Document Reviewed: 03/19/2019 [employer] Patient Education ?? 2021 [employer] Blood Transfusion, Adult A blood transfusion is a procedure in which you receive blood through an IV tube. You may need thisprocedure because of: ? A bleeding disorder. ? An illness. ? An injury. ? A surgery. The blood may come from someone else (a donor). You may also be able to donate blood for yourself. The blood given in a transfusion is made up of different types of cells. You may get: ? Red blood cells. These carry oxygen to the cells in the body. ? White blood cells. These help you fight infections. ? Platelets. These help your blood to clot. ? Plasma. This is the liquid part of your blood. It carries proteins and other substances through thebody. If you have a clotting disorder, you may also get other types of blood products. Tell your doctor about: ? Any blood disorders you have. ? Any reactions you have had during a blood transfusion in the past. ? Any allergies you have. ? All medicines you are taking, including vitamins, herbs, eye drops, creams, and iycq-oav-fwjrevt medicines. ? Any surgeries you have had. ? Any medical conditions you have. This includes any recent fever or cold symptoms. ? Whether you are or may be . What are the risks? Generally, this is a safe procedure. However, problems may occur. ? The most common problems include: ? A mild allergic reaction. This includes red, swollen areas of skin (hives) and itching. ? Fever or chills. This may be the body's response to new blood cells received. This may happen during or up to 4 hours after the transfusion. ? More serious problems may include: ? Too much fluid in the lungs. This may cause breathing problems. ? A serious allergic reaction. This includes breathing trouble or swelling around the face and lips. ? Lung injury. This causes breathing trouble and low oxygen in the blood. This can happen within hours of the transfusion or days later. ? Too much iron. This can happen after getting many blood transfusions over a period of time. ? An infection or virus passed through the blood. This is rare. Donated blood is carefully tested before it is given. ? Your body's defense system (immune system) trying to attack the new blood cells. This is rare. Symptoms may include fever, chills, nausea, low blood pressure, and low back or chest pain. ? Donated cells attacking healthy tissues. This is rare. What happens before the procedure? Medicines Ask your doctor about: ? Changing or stopping your normal medicines. This is important. ? Taking aspirin and ibuprofen. Do not take these medicines unless your doctor tells you to take them. ? Taking vqgs-myu-zfabiue medicines, vitamins, herbs, and supplements. General instructions ? Follow instructions from your doctor about what you cannot eat or drink. ? You will have a blood test to find out your blood type. The test also finds out what type of blood your body will accept and matches it to the donor type. ? If you are going to have a planned surgery, you may be able to donate your own blood. This may be done in case you need a transfusion. ? You will have your temperature, blood pressure, and pulse checked. ? You may receive medicine to help prevent an allergic reaction. This may be done if you have had a reaction to a transfusion before. This medicine may be given to you by mouth or through an IV tube. ? This procedure lasts about 1???4 hours. Plan for the time you need. What happens during the procedure? An IV tube will be put into one of your veins. ? The bag of donated blood will be attached to your IV tube. Then, the blood will enter through your vein. ? Your temperature, blood pressure, and pulse will be checked often. This is done to find early signsof a transfusion reaction. ? Tell your nurse right away if you have any of these symptoms: ? Shortness of breath or trouble breathing. ? Chest or back pain. ? Fever or chills. ? Red, swollen areas of skin or itching. ? If you have any signs or symptoms of a reaction, your transfusion will be stopped. You may also be given medicine. ? When the transfusion is finished, your IV tube will be taken out. ? Pressure may be put on the IV site for a few minutes. ? A bandage (dressing) will be put on the IV site. The procedure may vary among doctors and hospitals. What happens after the procedure? You will be monitored until you leave the hospital or clinic. This includes checking your temperature, blood pressure, pulse, breathing rate, and blood oxygen level. ? Your blood may be tested to see how you are responding to the transfusion. ? You may be warmed with fluids or blankets. This is done to keep the temperature of your body normal. ? If you have your procedure in an outpatient setting, you will be told whom to contact to report anyreactions. Where to find more information To learn more, visit the [place]: [email or web address] Summary ? A blood transfusion is a procedure in which you are given blood through an IV tube. ? The blood may come from someone else (a donor). You may also be able to donate blood for yourself. ? The blood you are given is made up of different blood cells. You may receive red blood cells, platelets, plasma, or white blood cells. ? Your temperature, blood pressure, and pulse will be checked often. ? After the procedure, your blood may be tested to see how you are responding. This information is not intended to replace advice given to you by your health care provider. Make sure you discuss any questions you have with your health care provider. Document Revised: 01/29/2020 Document Reviewed: 01/29/2020 [employer] Patient Education ?? 2021 [employer] Patient Name:DEVENDRA MCCORMICK I have received this information and my questions have been answered. Patient/Collar Sewer Name: Patient/Collar Sewer Signature: Relationship to Patient: Witness Name/Signature: Date: Electronically Signed on: 08/26/2022 10:10 ESTSigned by:CHUNG DIEZ study * Event Display: Telemetry Strips Please click on link to view image. * Event Display: Telemetry Strips Please click on link to view image. * Event Display: Telemetry Strips Please click on link to view image. Pharmacology Progress note * Sol Gunn PharmD: PERFORM Event Display: Pharmacy Progress Note Authored Date: [id number] Pharmacy Progress Note Med Rec updated with [facility] [place], [facility], and [facility] SCHULTE Electronically Signed on 08/25/22 12:10 PM Sol Gunn PharmD Physician Emergency department Note * Miko Sawant MD: PERFORM Event Display: ED Note Physician Authored Date: [id number] DEVENDRA MCCORMICK Kimber :1960 Age:62 years Sex:Female Visit Date:08/24/2022 Primary Care Physician: Eric May MD Basic Information Time Seen: Miko Sawant MD / 08/24/2022 19:29 Chief Complaint Pt discharged from [facility] 3 weeks ago (with a bone infection), arrives today with complaints of blackdiarrhea. ??Pt has been on PO vanco since discharge. History Of Present Illness: Ms. mccormick is a pleasant 62-year-old lady with a fairly complex past medical history, most recently significant for??spinal osteomyelitis status post surgery at [facility]??and on vancomycin through PICC line,??pulmonary hypertension,??alcohol abuse who presents today for evaluation of??dark black??diarrhea.?? She notes that throughout her course of treatment??for the osteomyelitis she had had some??on and off GI upset, presumed to be??antibiotic side effect and narcotic??pain medication side effect. ??Had not had much in the way of diarrhea. ??She indicates that earlier this evening, no true abdominal pain but did have a significant volume of diarrhea that she describes as very dark black??and mildly foul-smelling.?? She does note some epigastric abdominal discomfort and nausea with a few episodes of vomiting??over the last several days to weeks as well. ??She has not had ulcers or other GI bleeding that she knows of.?? She is not currently taking any antacid medications.?? Shortly after??having the episode of diarrhea she had stood up to??change her underwear when she felt lightheaded??and feels like she may have lost consciousness for a brief time.?? She does not think she hit her heador sustain any injuries during this episode.?? She does endorse some current associated dyspnea butdenies any chest pain, focal numbness, tingling, weakness. ??Her PICC line has not been flushing particularly well??over the last several days and she like to get some Cathflo for this as well Review of Systems: Positive for??diarrhea,??blood in stool otherwise as noted in HPI Physical Exam Vitals & Measurements T:??36.3?C ??(Temporal Artery)?? HR:??82??(Monitored)?? RR:??18?? BP:??146/86?? SpO2:??100%?? HT:??157.00??cm?? WT:??62.6??kg?? O2 Therapy:??Room air?? Vital signs and nursing note reviewed ?? CONSTITUTIONAL: _Pallor, appears ill but not acutely toxic SKIN: _Warm, dry, and intact without rash EYES: _extraocular movements are grossly intact, clear conjunctiva HENT: _Normocephalic, atraumatic, moist mucus membranes NECK: _no obvious swelling, normal range of motion PULMONARY: _normal chest rise and fall, lungs clear bilaterally with good air movement,??no respiratory distress or stridor CARDIOVASCULAR: _Mild tachycardia noted with??rate around 100, distal extremities are warm and wellperfused GASTROINTESTINAL: _nondistended, non-tender, no formed stool in rectal vault, hemorrhoids without external bleeding,??small stool sample is black and Hemoccult positive GENITOURINARY: _deferred NEUROLOGIC: _normal speech, moves all extremities MUSCULOSKELETAL: _no gross deformities, atraumatic PSYCHIATRIC: _normal mood and affect Medical Decision Making: Is a pleasant 62-year-old lady with a history??as noted in the HPI presented today for evaluation of diarrhea??with black, Hemoccult positive stool.?? She does have some shortness of breath and endorses a syncopal/near syncopal episode??shortly after having the episode of diarrhea.?? With the blackstool and the epigastric discomfort, would be concerned for upper??source, gastritis versus ulcer disease. ??Will initiate Protonix??and check laboratory evaluation as ordered. Procedure No Qualifying Data Reexamination/Reevaluation Labs reviewed???hemoglobin of 6 is noted, she does have a mild leukocytosis at 14??however on chartreview from labs drawn yesterday??her CRP has improved slightly??from prior check in system.?Mild elevation in creatinine is noted at 1.17. ??Labs otherwise generally reassuring. ??Suspect that her??shortness of breath may be??anemia mediated. ??We have a unit of blood transfusing and will discuss with general surgery??regarding potential for EGD??here versus need for transfer. Discussed with Dr. Henley with general surgery,??indicates??assuming patient remains stable they can??scope her first thing in the morning. ??We will plan to give her second unit of packed red blood cells??here and admit to hospital service. ??Patient updated and in agreement with plan. Discussed with MATA Adan with the hospital service who graciously agrees to evaluate for admission ?? Chest x-ray is read as clear,??PICC appropriately positioned,??Cathflo has restored flow ? Medical Decision-Making: Clinical lab tests: ordered and reviewed -??Yes Tests in the radiology section of CPT??: ordered and reviewed -??Yes Tests in the medicine section of CPT??: ordered and reviewed -??Yes Review and summarize past medical records -??Yes Discuss the patient with other providers -??Yes Independent visualization of images, tracings, or specimens? Yes - ekg Assessment/Plan 1.??Symptomatic anemia??D64.9 2.??Melena??K92.1 Orders: Protonix, 80 mg = 2 EA, IV Push, Powder-Inj, Daily, First Dose: 08/24/22 20:52:00 EST, STAT CV EKG ED, 08/24/22 19:51:00 EST, Stat, Reason: Chest Pain, Stop date and time 08/24/22 19:51:00 EST, ORD_SET_REQ_DT_RANGE, [facility] Person Id Red Blood Cells, Stat, Print Label, 1 unit, Low Hgb Syncope Medication Reconciliation Unchanged albuterol (Proventil HFA 90 mcg/inh inhalation aerosol)2 Puffs Inhale (breathe in) every 4 hours asneeded other (see comment). Take as needed. ?? benzonatate (benzonatate 200 mg oral capsule)1 Capsules Oral (given by mouth) 3 times a day as needed other (see comment). Take as needed. ?? cephalexin (!-Keflex 500 mg oral capsule)1 Capsules Oral (given by mouth) 4 times a day for 7 Days.Refills: 0. ?? cyanocobalamin (Vitamin B12 1000 mcg oral tablet)1 tab Oral (given by mouth) every day. for 30 days. ?? cyclobenzaprine (!-Flexeril) ?? cyclobenzaprine (cyclobenzaprine 10 mg oral tablet)1 tab Oral (given by mouth) 3 times a day as needed as needed for muscle spasm. ?? etanercept (Enbrel SureClick 50 mg/mL subcutaneous solution)50 Milligrams Subcutaneous (under the skin) every week. ?? folic acid (folic acid 1 mg oral tablet)1 tab Oral (given by mouth) every day. Take for 30 days. ?? furosemide (furosemide 40 mg oral tablet)1 tab Oral (given by mouth) every morning. ?? hydroxychloroquine (hydroxychloroquine 200 mg oral tablet)1 tab Oral (given by mouth) 2 times a day. ?? imipramine (imipramine 25 mg oral tablet)1 tab Oral (given by mouth) 3 times a day. ?? ipratropium-albuterol (ipratropium-albuterol 0.5 mg-2.5 mg/3 mL inhalation solution)3 Milliliters Nebulized inhalation (inhale using nebulizer) every 6 hours as needed other (see comment). Take as needed. ?? meclizine (meclizine 25 mg oral tablet)1 tab Oral (given by mouth) 3 times a day as needed as needed for dizziness. ?? methotrexate (methotrexate 2.5 mg oral tablet)6 tab Oral (given by mouth) every 6 hours. ?? montelukast (montelukast 10 mg oral tablet)1 tab Oral (given by mouth) every day. ?? naproxen (naproxen 500 mg oral tablet)0.5 tab Oral (given by mouth) 2 times a day. ?? ondansetron (ondansetron 4 mg oral tablet, disintegrating)1 tab. ?? Other Prescription (Probiotic Blend 2 million cell-50 mg capsule)1 Capsules Oral (given by mouth) every day. ?? oxyCODONE (oxyCODONE 5 mg oral capsule)1 Capsules Oral (given by mouth) every 6 hours as needed as needed for pain. Refills: 0. ?? spironolactone (spironolactone 25 mg oral tablet)1 tab Oral (given by mouth) every day. ?? thiamine (thiamine 100 mg oral tablet)1 tab Oral (given by mouth) every day. thiamine HCl (vitamin B1) 100 mg tablet; for 30 days. Problem List/Past Medical History Ongoing Alcohol withdrawal syndrome Generalized anxiety disorder Genital lichen sclerosus Lumbosacral radiculopathy Menopause present Methicillin resistant Staphylococcus aureus Pneumonia Pulmonary hypertension Rheumatoid arthritis Right shoulder injury Sepsis Wernicke's disease Wernicke's hemianopic pupil Historical Procedure/Surgical History ???Due 03/2026 (04/04/2021)???Liver Biopsy (2002)???Bunionectomy???Dilation and curettage???Procedure on foot Medication Administration Given Lactated Ringers Injection, 1000 mL, IV Cathflo Activase 2 mg injection, 2.2 mL, 2 mg, IV Push LORazepam, 0.5 mg, Oral Normal Saline Flush, 10 mL, IV Push Protonix, 80 mg, 20 mL, 80 mg, IV Push Tylenol, 650 mg, Oral vancomycin, 750 mg, IV Piggyback Allergies Biaxin clarithromycin halobetasol topical??(Skin rash) Social History Electronic Cigarette/Vaping Electronic Cigarette Use: Never. Sexual Other contraceptive use: Menopause. Tobacco Never tobacco user Tobacco Use:. Family History Hypertensive disorder: Father. Malignant tumor of breast: Mother and Grandmother (M). Osteoporosis: Mother. Diagnostic Results ECG Sinus tachycardia with a rate of 104, normal axis, NM is appropriate 140 ms, QRS is not widened at 70 ms, QTC is not prolonged at 395 ms.?? No acute ST/T-segment changes or evidence of acute regionalischemia or dysrhythmia. Lab Results CBC and Differential?? LATEST RESULTS?? HISTORICAL RESULTS?? WBC?? 08/24/22 19:35?? 14.9 ??High?? 07/22/22?? 15.7 ??High?? RBC?? 08/24/22 19:35?? 2.5 ??Low?? 07/22/22?? 4.3?? Hgb?? 08/24/22 19:35?? 6.0 ??Critical?? 07/22/22?? 9.8 ??Low?? Hct?? 08/24/22 19:35?? 19.7 ??Critical?? 07/22/22?? 33.3 ??Low?? MCV?? 08/24/22 19:35?? 79.1 ??Low?? 07/22/22?? 77.1 ??Low?? MCH?? 08/24/22 19:35?? 24.1 ??Low?? 07/22/22?? 22.7 ??Low?? MCHC?? 08/24/22 19:35?? 30.5 ??Low?? 07/22/22?? 29.4 ??Low?? RDW-CV?? 08/24/22 19:35?? 18.4 ??High?? 07/22/22?? 16.0?? Platelets?? 08/24/22 19:35?? 416?? 07/22/22?? 846 ??Critical?? Segs Man?? 08/24/22 19:35?? 84 ??High?? 04/24/22?? 71?? Lymph Man?? 08/24/22 19:35?? 7 ??Low?? 04/24/22?? 14 ??Low?? Toombs Man?? 08/24/22 19:35?? 6?? 04/24/22?? 11?? Eos Man?? 08/24/22 19:35?? 2?? 04/24/22?? 4?? Baso Man?? 08/24/22 19:35?? 1?? 04/24/22?? 0?? Band Man?? 08/24/22 19:35?? 0?? 04/24/22?? 0?? Abs Neut Man?? 08/24/22 19:35?? 12.5?? 04/24/22?? 6.2?? RBC Morph?? 08/24/22 19:35?? Abnormal?? 07/22/22?? Abnormal?? Anisocyte?? 08/24/22 19:35?? Small?? 07/22/22?? Rare?? Microcyte?? 08/24/22 19:35?? Small?? 07/22/22?? Small? Routine Chemistry?? LATEST RESULTS?? HISTORICAL RESULTS?? Sodium Level?? 08/24/22 19:35?? 138?? 07/22/22?? 134 ??Low?? Potassium Level?? 08/24/22 19:35?? 4.1?? 07/22/22?? 4.7?? Chloride Level?? 08/24/22 19:35?? 104?? 07/22/22?? 97 ??Low?? CO2?? 08/24/22 19:35?? 26?? 07/22/22?? 25?? Alk Phos?? 08/24/22 19:35?? 99?? 07/22/22?? 116?? AST?? 08/24/22 19:35?? 12 ??Low?? 07/22/22?? 16?? ALT?? 08/24/22 19:35?? 7 ??Low?? 07/22/22?? 12 ??Low?? BUN?? 08/24/22 19:35?? 34 ??High?? 07/22/22?? 17?? Glucose Level?? 08/24/22 19:35?? 93?? 07/22/22?? 102?? Creatinine Level?? 08/24/22 19:35?? 1.17 ??High?? 08/18/22?? 1.01?? eGFR AA?? 08/24/22 19:35?? 53 ??Low?? 08/18/22?? 63?? eGFR Non-AA?? 08/24/22 19:35?? 53 ??Low?? 08/18/22?? 63?? Calcium Level?? 08/24/22 19:35?? 8.4 ??Low?? 07/22/22?? 9.7?? Protein Total?? 08/24/22 19:35?? 6.2 ??Low?? 07/22/22?? 9.2 ??High?? Albumin Level?? 08/24/22 19:35?? 2.5 ??Low?? 07/22/22?? 3.2 ??Low?? Bilirubin Total?? 08/24/22 19:35?? 0.3?? 07/22/22?? 0.4? UA Macroscopic?? LATEST RESULTS?? HISTORICAL RESULTS?? UA Color?? 08/24/22 19:35?? Yellow?? 07/22/22?? Yellow?? UA Appear?? 08/24/22 19:35?? Clear?? 07/22/22?? Clear?? UA Glucose?? 08/24/22 19:35?? Negative?? 07/22/22?? Negative?? UA Bili?? 08/24/22 19:35?? Negative?? 07/22/22?? Negative?? UA Ketones?? 08/24/22 19:35?? Negative?? 07/22/22?? Negative?? UA Spec Grav?? 08/24/22 19:35?? <=1.005?? 07/22/22?? 1.010?? UA Blood?? 08/24/22 19:35?? 1+ Abnormal?? 07/22/22?? Negative?? UA pH?? 08/24/22 19:35?? 5.5?? 07/22/22?? 7.5?? UA Protein?? 08/24/22 19:35?? Negative?? 07/22/22?? Negative?? UA Urobilinogen?? 08/24/22 19:35?? Normal?? 07/22/22?? Normal?? UA Nitrite?? 08/24/22 19:35?? Negative?? 07/22/22?? Negative?? UA Leuk Est?? 08/24/22 19:35?? Negative?? 07/22/22?? Negative?? UA Culture Ind?.?? 08/24/22 19:35?? Not Indicated? UA Microscopic?? LATEST RESULTS?? UA WBC?? 08/24/22 19:35?? 0-3?? UA RBC?? 08/24/22 19:35?? 3-5?? UA Squam Epithelial?? 08/24/22 19:35?? Rare?? UA Mucous?? 08/24/22 19:35?? None Seen?? UA Bacteria?? 08/24/22 19:35?? None Seen? Infectious Disease?? LATEST RESULTS?? 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 08/24/22 19:35?? Unknown?? Symptomatic as defined by CDC??? 08/24/22 19:35?? Unknown?? Hospitalized due to COVID-19??? 08/24/22 19:35?? Unknown?? In ICU??? 08/24/22 19:35?? Unknown?? Group care resident??? 08/24/22 19:35?? Unknown?? status??? 08/24/22 19:35?? Unknown?? SARS-CoV-2(Covid19)PCR(GXpert COVFLURSV)?? 08/24/22 19:35?? Negative?? Flu A (GXpert COVFLURSV)?? 08/24/22 19:35?? Negative?? Flu B (GXpert COVFLURSV)?? 08/24/22 19:35?? Negative?? RSV (GXpert COVFLURSV)?? 08/24/22 19:35?? Negative? Transfusion Medicine Testing?? LATEST RESULTS?? ABO/Rh Type?? 08/24/22 19:45?? A POS?? Antibody Screen Gel?? 08/24/22 19:45?? Negative ABSC? Crossmatch Summary?? LATEST RESULTS?? Crossmatch - IS?? 08/24/22 21:04?? Compatible? Transfusion Summary?? LATEST RESULTS?? TRANSFUSED?? 08/24/22 21:43?? TRANSFUSED? Electronically Signed on 08/25/22 05:36 AM Miko Sawant MD Physical therapy Progress note * Nino Booker PT: PERFORM Event Display: Physical Therapy Progress Note Authored Date: [id number] Patient ID and date of checked:?? yes *Current Level of Care: In-Patient *Admitting Diagnosis: Anemia, GI bleed, shortness of breath *Therapy Diagnosis: Safety evaluation Pertinent Medical History: Patient is a 62-year-old female mated to [facility] on 08/25/2021 following onsetof shortness of breath with excursion and a fainting spell following bowel movement at home. She states she went to the bathroom and had jeannine bleeding in her stool and fainted. Prior level of function patient is somewhat deconditioned from multiple weeks stay at [facility] following lumbar fusion hardware removal surgery. She returned home prior to the new year and developed GI bleed and associated symptoms. Admitted to [facility] for medical management of current situation. Patient is on vancomycin via PICC line for the month of August and was doing this independently at home prior to admission. Prior level of function, ambulatory without assistive device occasionally using a cane reporting no distress with functional activities other than general strength following deconditioning from hospitalization. *Subjective: Looking forward to going home soon Hand Dominance: Right *Barriers to Learning: ??x None Communication Cultural Education level Hearing Language Vision Physical Cognitive Motivational Emotional Precautions: Standard precautions ??x MRSA/VRE Contact precautions Droplet precautions Airborne precautions Covid precautions Total hip replacement Total knee replacement Total shoulder replacement Fall risk *Previous Level of Function: Independent with ambulation over variable surfaces, occasional use of straight cane, independent with stair mobility Occupational Status/Profile: n/a Prior Home Setup: ?? Living Situation/Level of Supervision: Home alone ?Living Environment: Home ?Stairs/Ramps: 3 steps to enter with rails ?Home Equipment: Cane *Current Level of Function: No significant impairments to functional mobility Pain: ? Patient reporting no significant pain Vision/Hearing: wnl Cognition: ?? Attention: wnl ?Communication: wnl ?Follows Commands: intact ?Insights into Deficits: intact ?Level of Consciousness: alert ?Crab Backer Memory: intact ?Short Term Memory: intact ?Orientation: A/O x 4 ?Safety Awareness: intact Passive/Active Range of Motion: Patient demonstrates no significant abnormalities in upper extremity or lower extremity mobility. Manual Muscle Testing: Gross upper extremity and lower extremity strength 4/5 Proprioception/Sensation: No deficits noted Edema: none noted Bed Mobility: Activity Assistance Comments Rolling ??I Scooting/Repositioning ??I Supine to Sit ??I Sit to Supine ??I Transfers: Activity Assistive Device Assistance Comments Sit to Stand ??none ??I Stand to Sit ??none ??I Bed to Chair Chair to Bed Shower Transfer Toilet Transfer Ambulation: Assistance Assistive Device Distance Comments ??stand by x 1 ??none ??40' Stairs: n/a Assistance Assistive Device # Steps Comments Wheelchair Mobility: n/a Assistance Distance Comments Balance: ?? Static Sitting: wnl ?Dynamic Sitting: good ?Static Standing: good ?Dynamic Standing: good Skin Integrity: She has well-healed lumbar incision with notable hypomobility at proximal edge. *Standardized Testing: Standardized Test: [facility] Functional Impairment Rating ? Score: 0% impairment ? Comments: *Patient Education: Patient education for safety with ambulation while on MedSurg floor *Physical Therapy Assessment: Patient is a 62-year-old female admitted to [facility] on 08/25/2021 followingonset of fainting spell following recognition of a GI bleed after going to the bathroom. Patient demonstrates no significant functional mobility deficits and is motivated to return home. We discussedthe importance of safety while on MedSurg floor with regards to having supervision with toileting. She presents with no significant impairments and anticipate no issues with discharge home pending medical management. She does not require physical therapy services for this intervention. PT Plan of Care (as per below) *Discharge Plan:?DC PT today Discharge Recommendations: ?? Home equipment needs: none ?Post discharge Rehab needs: _ ?? Disposition: _ ?Supervision needs: _ ?Discussed plan of care with: *Evaluation Procedure Documentation: CPT 09298: Low Complexity PT Evaluation:?15? minutes Physical Therapy Evaluation performed. History involves 1-2 personal factors and/or comorbidities. Examination of body system(s) includes 1-2 elements. Clinical presentation is stable. Clinical decision making is low. *Total Time: 15 min *Time In: 1415 *Time Out: 1430 This document was dictated utilizing voice recognition software and may contain inadvertent errors. Electronically Signed on 08/25/22 02:34 PM Nino Booker PT Emergency department Note * Riana Coats: PERFORM Event Display: ED Notes Authored Date: [id number] Progress note * Poncho Mendoza MD: PERFORM Event Display: Progress Note - Physician Authored Date: [id number] Subjective NAEO POD#1 from EGD H&H stable Denies abdominal pain, cp, dyspnea Medications Inpatient acetaminophen, 650 mg= 2 tab, Oral, every 6 hr, PRN Carafate, 1 g= 1 tab, Oral, QID folic acid, 1 mg= 1 tab, Oral, Daily imipramine, 25 mg, Oral, TID Lactated Ringers Injection 1,000 mL, 1000 mL, IV lidocaine 1% injectable solution, 5 mg= 0.5 mL, Intradermal, As Directed, PRN LORazepam, 0.5 mg= 1 tab, Oral, every 6 hr, PRN melatonin 3 mg oral tablet, 9 mg= 3 tab, Oral, every night at bedtime, PRN montelukast, 10 mg= 1 tab, Oral, Daily Normal Saline Flush, 10 mL, IV Push, every 12 hr (kee) ondansetron, 4 mg= 2 mL, IV Push, every 6 hr, PRN oxyCODONE 5 mg oral tablet, 5 mg= 1 tab, Oral, every 6 hr, PRN pneumococcal 23-polyvalent vaccine, 0.5 mL, IM, Once, PRN Protonix, 40 mg= 1 EA, IV Push, BID Proventil HFA 90 mcg/inh inhalation aerosol, 2 puffs, Inhale, every 4 hr, PRN saccharomyces boulardii lyo 250 mg oral capsule, 1 cap, Oral, BID Sodium Chloride 0.9% 1,000 mL, 1000 mL, IV thiamine, 100 mg= 1 tab, Oral, Daily vancomycin, 750 mg= 150 mL, IV Piggyback, every 12 hr Home Carafate 1 g oral tablet, 1 g= 1 tab, Oral, QID Enbrel SureClick 50 mg/mL subcutaneous solution, 50 mg, Subcutaneous, every week ferrous sulfate 325 mg (65 mg elemental iron) oral delayed release tablet, 325 mg= 1 tab, Oral, Daily folic acid 1 mg oral tablet, 1 mg= 1 tab, Oral, Daily hydroxychloroquine 200 mg oral tablet, 200 mg= 1 tab, Oral, BID imipramine 25 mg oral tablet, 25 mg= 1 tab, Oral, TID magnesium oxide 400 mg (241.3 mg elemental magnesium) oral tablet, 400 mg= 1 tab, Oral, BID oxyCODONE 5 mg oral capsule, 5 mg= 1 cap, Oral, every 6 hr, PRN Probiotic Blend 2 million cell-50 mg capsule, 1 cap, Oral, Daily Protonix 40 mg oral delayed release tablet, 40 mg= 1 tab, Oral, BID thiamine 100 mg oral tablet, 100 mg= 1 tab, Oral, Daily vancomycin, 650 mg, IV Piggyback, every 12 hr Vitamin B12 1000 mcg oral tablet, 1000 mcg= 1 tab, Oral, Daily Physical Exam Vitals & Measurements T:??36.8?C ??(Temporal Artery)?? TMIN:??36.3?C ??(Temporal Artery)?? TMAX:??37.3?C ??(Temporal Artery)?? HR:??74??(Peripheral)?? RR:??19?? BP:??137/86?? SpO2:??99%?? WT:??63??kg?? Pain Score:??0?? O2 Therapy:??Room air?? NAD ?? Non labored breathing ?? RRR ?? Soft, NT, ND Lab Results Labs??(Last four charted values) WBC ?8.6?(AUG 26)?H??12.4?(AUG 25)?H??11.0?(AUG 25)?H??13.6?(AUG 25) Hgb ?L??8.8?(AUG 26)?L??9.1?(AUG 25)?C??7.0?(AUG 25)?L??8.1?(AUG 25) Hct ?L??27.7?(AUG 26)?L??28.1?(AUG 25)?L??22.0?(AUG 25)?L??24.7?(AUG 25) Plt ?390?(AUG 26)?384?(AUG 25)?346?(AUG 25)?408?(AUG 25) Na ?141?(AUG 25)?138?(AUG 24) K ?4.0?(AUG 25)?4.1?(AUG 24) CO2 ?26?(AUG 25)?26?(AUG 24) Cr ?0.94?(AUG 25)?H??1.17?(AUG 24) BUN ?H??35?(AUG 25)?H??34?(AUG 24) Glucose Random ?94?(AUG 25)?93?(AUG 24) Imaging Results (Last 24 Hours) No qualifying data available. Assessment/Plan 1.??Symptomatic anemia??D64.9 2.??Melena??K92.1 3.??Rheumatoid arthritis??M06.9 4.??Upper GI bleed??K92.2 5.??Gastric ulcer??K25.9 6.??Acute blood loss anemia??D62 Orders: Surgical Pathology [facility], AP Specimen, Routine Collect, 08/25/22 12:27:00 EST, every morning, Lab Collect, Print Label ?? 62 yo w/UGIB secondary to large gastric ulcer (non-bleeding) seen on EGD. Has been receiving Protonix IV bid. H&H stable. Diet was advanced and she is tolerating. ?? Transition to oral PPI, high dose, at discharge along with Carafate qid for 6-8 weeks with plan forinterval EGD to confirm resolution of ulcer. Strongly recommend cessation of NSAIDs and ulcerogenicmedications, smoking, EtOH. ? Problem List/Past Medical History Ongoing Generalized anxiety disorder Genital lichen sclerosus History of alcohol use disorder Lumbosacral radiculopathy Menopause present Methicillin resistant Staphylococcus aureus Pneumonia Pulmonary hypertension Rheumatoid arthritis Rheumatoid arthritis Sepsis Wernicke's disease Wernicke's hemianopic pupil Historical Alcohol withdrawal syndrome Right shoulder injury Procedure/Surgical History ???EGD - Esophagogastroduodenoscopy (08/25/2022)???Due 03/2026 (04/04/2021)???Liver Biopsy (2002)???Bunionectomy???Dilation and curettage???Procedure on foot Allergies Biaxin clarithromycin halobetasol topical??(Skin rash) Social History Electronic Cigarette/Vaping Electronic Cigarette Use: Never. Sexual Other contraceptive use: Menopause. Tobacco Never tobacco user Tobacco Use:. Family History Hypertensive disorder: Father. Malignant tumor of breast: Mother and Grandmother (M). Osteoporosis: Mother. Electronically Signed on 08/26/22 10:47 AM Poncho Mendoza MD * [facility] MD: PERFORM Event Display: Progress Note - Physician Authored Date: [id number] DEVENDRA MCCORMICK :1960 Age:62 years Sex:Female Visit Date:08/24/2022 Primary Care Physician: Rocio [facility], Eric Tran MD Subjective Feels improved this morning. ??When she got up to go to the bathroom she was not??severely lightheaded.?? She has some appetite. ??Still has mild epigastric pain.?? Dyspnea??resolved for now. ??Neverhad chest pain. Objective Vitals & Measurements T:??36.7?C ??(Temporal Artery)?? TMIN:??36.3?C ??(Temporal Artery)?? TMAX:??37.3?C ??(Tympanic)?? HR:??89??(Peripheral)?? RR:??16?? BP:??126/66?? SpO2:??98%?? HT:??157.00??cm?? WT:??62.6??kg?? O2 Therapy:??Room air?? Physical Exam Alert, pale but in no distress. ??Respirations unlabored ?? Neck supple??no adenopathy ?? Lungs clear with normal??breath sounds, no rales ?? Heart regular without murmur ?? Abdomen mild epigastric tenderness. ??No caput medusa Assessment/Plan 1.??Symptomatic anemia??D64.9 Getting her second unit of blood. 2.??Melena??K92.1 Upper GI bleeding, most likely related to naproxen use which may have caused??gastritis or an ulcer.?? Stools have slowed down.?? We will get EGD today.?? It is conceivable that she has??varices given the degree of liver disease??manifest in her August admission.?? We will follow hemoglobin twice p er day. ??Getting her second unit of blood.?? She will definitely need to be here at least 1 more day 3.??Rheumatoid arthritis??M06.9 She is back on her DMARDs, does not have any flare. ??Not on steroids. Orders: Basic Metabolic Panel, Blood, Routine, 08/26/22 7:45:00 EST, Once, Lab Collect CBC w/o Diff, Blood, Routine, 08/25/22 7:44:00 EST, BID, for 2 days, Lab Collect 4. ??Prior??alcoholic hepatitis and Warnicke syndrome??during admission 1 year ago.?? Patient has been dry since then,??does not have ongoing encephalopathy??and does not appear on imaging to have high-grade cirrhosis. ?? 5. ??Recurrent sepsis with MRSA???her repeated infections??are likely related to infected hardware in her lumbar spine which has now been removed.?? She is supposed to finish up her??prolonged courseof IV vancomycin on??09/10. Electronically Signed on 08/25/22 07:50 AM Rocio [facility] MD History and physical note * Tracie Acevedo [employer]SP[employer]ER STUFFER: MODIFY, PERFORM Event Display: History and Physical Authored Date: [id number] DEVENDRA MCCORMICK :1960 Age:62 years Sex:Female Visit Date:08/24/2022 Primary Care Physician: Rocio [facility], Eric Tran MD Chief Complaint Pt discharged from [facility] 3 weeks ago (with a bone infection), arrives today with complaints of blackdiarrhea. ??Pt has been on PO vanco since discharge. History of Present Illness A pleasant 62 year old female with a significant past medical history of OA, RA on methotrexate andPlaquenil, MRSA pneumonia/bacteremia,??osteomyelitis??of the clavicle which was operated on at [facility],and more recent osteomyelitis of L4/5 with transfer to [facility] for treatment presented to [facility] ER with complaints of copious amounts of black diarrhea accompanied by waves of nausea and dizziness. She is n ot clear if she passed out at home but felt like she may have. She reports discharge from [facility] 3 weeks ago on oral vancomycin. She thought her nausea was from the vancomycin but hen later developed the black diarrhea. ?? Ms. Mccormick denies abdominal pain, chest pain, shortness of breath although earlier she reported an episode where she felt mildly SOB, painful breathing, headache, or other symptoms. She denies antaciduse or previous history of peptic ulcers. ?? 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 ?? I have reviewed the medical records, labs, and diagnostic tests. There is leukocytosis with a WBC 13.6, initial Hgb 6.0 - post transfusion 8.1, Hct 19.7 - post discharge 24.7, Na 138, K4.1, AST 12, ALT 7, CR 1.17, eGFR 53, BUN 34, UA negative. CXR revealed no acute pulmonary findings with left PICC in place. Heme positive occult - performed in ER by ER physician as noted??thus not repeating in my exam. ?? She reported the PICC line had not been functioning well but was resolved with Cath Rudy given in the ER. ?? Dr. Henley - general surgery consult was completed. I appreciate his recommendation of high dose PPIand transfusion. An EGD is planned for sometime today if her HH remains stable. She remains??NPO and has no further episodes of black diarrhea. ?? ROS/PE as noted. The plan of care is as detailed below. I discussed the plan of care in detail with Ms. Mccormick and she has offered no further questions/concerns at this time. I anticipate the LOS to be one midnight and do not anticipate the need for home care post discharge. Review of Systems A 12 point ROS has been completed and are negative unless otherwise noted in the HPI. Physical Exam Vitals & Measurements T:??36.3?C ??(Temporal Artery)?? TMIN:??36.3?C ??(Temporal Artery)?? TMAX:??37.3?C ??(Tympanic)?? HR:??82??(Monitored)?? RR:??18?? BP:??146/86?? SpO2:??100%?? HT:??157.00??cm?? WT:??62.6??kg?? O2 Therapy:??Room air?? General: Pleasant, alert and oriented, well nourished, appear comfortable, and in no acute distress. Eye: PERRL, EOMI, normal conjunctiva. HENT: Atraumatic, normocephalic, normal hearing, moist oral mucosa, no scleral icterus. Neck: Supple, non-tender, no crepitus, no JVD, no lymphadenopathy. Lungs: Clear to auscultation, non-labored respiration, no tachypnea. Chest: symmetrical rise and fall. Heart: Normal rate, regular rhythm, no murmur, gallop or peripheral edema, (+) distal pulses. Abdomen: Soft, non-tender, non-distended, normal bowel sounds, no masses. : no suprapubic tenderness, no CVA tenderness. Musculoskeletal: Normal range of motion and strength, no tenderness or swelling. PICC in place - left. Skin: Skin is warm, dry and appropriate for ethnicity, no rashes or lesions. Neurologic: Awake, alert and oriented X4, CN II-XII intact. Psychiatric: Cooperative, appropriate mood and affect. ?? Telemetry strip - SR 89 bpm without ectopy. Assessment/Plan 1.??Symptomatic anemia??D64.9 Hgb 6.0, waves of nausea, dizziness, syncope, black diarrhea, (+) heme occult. Transfuse 1 unit PRBC - will give second unit if repeat is 7 or below. Repeat Hbg - 8.1 2.??Melena??K92.1 IV Protonix 40 mg BID NPO Surgical consult - Dr. Henley saw patient - see note. Plan EGD tomorrow if the patient remains hemodynamically stable. Orders: Lactated Ringers Injection 1,000 mL, Total Volume (mL): 1,000, 1,000 mL, Soln, IV, 30 mL/hr, Start Date: 08/25/22 1:15:00 EST, 68 kg, Populate Charting Weight From Order, 1.72, m2 lidocaine 1% injectable solution, 5 mg 0.5 mL, Intradermal, Soln, As Directed, PRN other (see comment), First Dose: 08/25/22 1:10:00 EST, Routine LORazepam, 0.5 mg = 1 tab, Oral, Tab, every 6 hr, PRN anxiety, First Dose: 08/25/22 1:10:00 EST, Routine ondansetron, 4 mg = 2 mL, IV Push, Soln, every 6 hr, PRN nausea/vomiting, First Dose: 08/25/22 1:10:00 EST, Routine pneumococcal 23-polyvalent vaccine, 0.5 mL, IM, Soln, Once, PRN other (see comment), First Dose: 08/25/22 1:10:00 EST, Physician Stop, Routine Normal Saline Flush, 10 mL, IV Push, Soln, every 12 hr (kee), First Dose: 08/25/22 9:00:00 EST, Routine Sodium Chloride 0.9% 1,000 mL, Total Volume (mL): 1,000, 1,000 mL, Soln-IV, IV, 30 mL/hr, Start Date: 08/25/22 1:10:00 EST, 68 kg, Populate Charting Weight From Order, 1.72, m2 thiamine, 100 mg = 1 tab, Oral, Tab, Daily, First Dose: 08/25/22 9:00:00 EST, Routine Vancomycin- -Pharmacy To Dose, 1 mg, IV Piggyback, Soln, As Directed, Antibiotic Indication Bloodstream Infections, First Dose: 08/25/22 3:44:00 EST, Physician Stop, Routine Above the Knee Grad Compression Stocking, 08/25/22 1:10:00 EST, Constant Order, Knee-high compression stockings.(Graduated compression stockings) Remove twice daily for 30min Cardiac Monitoring, 08/25/22 1:10:00 EST, Telemetry CBC w/o Diff, Blood, Routine, 08/25/22 7:00:00 EST, Once, Lab Collect Comprehensive Metabolic Panel, Blood, Routine, 08/25/22 7:00:00 EST, Once, Lab Collect Diet Order, 08/25/22 1:10:00 EST, NPO Intake and Output, 08/25/22 1:10:00 EST, every 8 hrs, Constant Indicator, 08/25/22 1:10:00 EST Isolation Precautions, 08/25/22 1:10:00 EST, MRSA, Contact [facility]SO Place in Observation, Observation, Observation, Vinny Castelan MD, 08/24/22 22:37:00 EST, 08/24/22 22:37:00 EST, 08/24/22 22:37:00 EST, 2 midnights or more PT Evaluation and Treatment Acute., 08/25/22 1:10:00 EST, Once Resuscitation Status, 08/25/22 1:10:00 EST, Full Code RT Eval and Treat Protocol, Stop date 08/25/22 1:10:00 EST Up with Assistance, 08/25/22 1:10:00 EST, Constant Order Vancomycin Lvl Trough, Blood, Timed Study, 08/25/22 7:00:00 EST, Once, Lab Collect Vital Signs, 08/25/22 1:10:00 EST, Constant order, every 4 hrs VTE Prophylaxis Not Received, 08/25/22 1:10:00 EST, Contraindicated 3. Management of chronic medical conditions: continue vancomycin - pharmacy to dose. once??home medications have been verified, will order as appropriate. ?? Images see HPI Problem List/Past Medical History Ongoing Alcohol withdrawal syndrome Generalized anxiety disorder Genital lichen sclerosus Lumbosacral radiculopathy Menopause present Methicillin resistant Staphylococcus aureus Pneumonia Pulmonary hypertension Rheumatoid arthritis Right shoulder injury Sepsis Wernicke's disease Wernicke's hemianopic pupil Historical Procedure/Surgical History ???Due 03/2026 (04/04/2021)???Liver Biopsy (2002)???Bunionectomy???Dilation and curettage???Procedure on foot Medications Inpatient Lactated Ringers Injection 1,000 mL, 1000 mL, IV lidocaine 1% injectable solution, 5 mg= 0.5 mL, Intradermal, As Directed, PRN LORazepam, 0.5 mg= 1 tab, Oral, every 6 hr, PRN Normal Saline Flush, 10 mL, IV Push, every 12 hr ([facility]) ondansetron, 4 mg= 2 mL, IV Push, every 6 hr, PRN pneumococcal 23-polyvalent vaccine, 0.5 mL, IM, Once, PRN Protonix, 80 mg= 2 EA, IV Push, Daily Sodium Chloride 0.9% 1,000 mL, 1000 mL, IV thiamine, 100 mg= 1 tab, Oral, Daily Vancomycin- -Pharmacy To Dose, 1 mg, IV Piggyback, As Directed Home !-Flexeril !-Keflex 500 mg oral capsule, 500 mg= 1 cap, Oral, QID benzonatate 200 mg oral capsule, 200 mg= 1 cap, Oral, TID, PRN cyclobenzaprine 10 mg oral tablet, 10 mg= 1 tab, Oral, TID, PRN Enbrel SureClick 50 mg/mL subcutaneous solution, 50 mg, Subcutaneous, every week folic acid 1 mg oral tablet, 1 mg= 1 tab, Oral, Daily furosemide 40 mg oral tablet, 40 mg= 1 tab, Oral, every morning hydroxychloroquine 200 mg oral tablet, 200 mg= 1 tab, Oral, BID imipramine 25 mg oral tablet, 25 mg= 1 tab, Oral, TID ipratropium-albuterol 0.5 mg-2.5 mg/3 mL inhalation solution, 3 mL, NEB, every 6 hr, PRN meclizine 25 mg oral tablet, 25 mg= 1 tab, Oral, TID, PRN methotrexate 2.5 mg oral tablet, 15 mg= 6 tab, Oral, every 6 hr montelukast 10 mg oral tablet, 10 mg= 1 tab, Oral, Daily naproxen 500 mg oral tablet, 250 mg= 0.5 tab, Oral, BID ondansetron 4 mg oral tablet, disintegrating, 4 mg= 1 tab oxyCODONE 5 mg oral capsule, 5 mg= 1 cap, Oral, every 6 hr, PRN Probiotic Blend 2 million cell-50 mg capsule, 1 cap, Oral, Daily Proventil HFA 90 mcg/inh inhalation aerosol, 2 puffs, Inhale, every 4 hr, PRN spironolactone 25 mg oral tablet, 25 mg= 1 tab, Oral, Daily thiamine 100 mg oral tablet, 100 mg= 1 tab, Oral, Daily Vitamin B12 1000 mcg oral tablet, 1000 mcg= 1 tab, Oral, Daily Allergies Biaxin clarithromycin halobetasol topical??(Skin rash) Social History Electronic Cigarette/Vaping Electronic Cigarette Use: Never. Sexual Other contraceptive use: Menopause. Tobacco Never tobacco user Tobacco Use:. Family History Hypertensive disorder: Father. Malignant tumor of breast: Mother and Grandmother (M). Osteoporosis: Mother. Immunizations Vaccine Date Status influenza virus vaccine, inactivated 06/20/2008 Recorded diphth/tetanus/pertussis/polio/haemophil 05/20/2008 Recorded Comments : tetanus toxoid, adsorbed influenza virus vaccine, inactivated 06/08/2005 Recorded diphth/tetanus/pertussis/polio/haemophil 08/20/1996 Recorded Comments : tetanus toxoid, adsorbed rubella virus vaccine Recorded Lab Results see HPI Diagnostic Results see HPI Electronically Signed on 08/25/22 05:46 AM Tracie Acevedo [employer]SP[employer]ER [employer]UFFER Electronically Signed on 08/25/22 06:02 AM Tracie Acevedo NEWSPAPER STUFFER * Tracie Acevedo NEWSPAPER STUFFER: PERFORM Event Display: History and Physical Authored Date: 06 Hgb 7.0 - 2nd unit of PRBC to be infused now. Patient offers no complaints at this time. Vitalsigns remain stable. Electronically Signed on 08/25/22 07:07 AM Tracie Acevedo [employer]SP[employer]ER STUFFER Reviewed by: Vinny Castelan MD * Poncho Mendoza MD: MODIFY, PERFORM Event Display: History and Physical Authored Date: [id number] DEVENDRA MCCORMICK :1960 Age:62 years Sex:Female Visit Date:08/24/2022 Primary Care Physician: Rocio [facility], Eric Tran MD Chief Complaint Pt discharged from [facility] 3 weeks ago (with a bone infection), arrives today with complaints of blackdiarrhea. ??Pt has been on PO vanco since discharge. History of Present Illness 62 year old female with PMH significant for RA on methotrexate and Plaquenil, MRSA pneumonia/bacteremia and most recently??osteomyelitis of L4/5 and is now s/p hardware removal.??[facility]), has been receiving regular antibiotic infusions via??PICC line.?? History of EtOH abuse, Wernicke's encephalopathy. ?? Recently developed episodes of melena, associated with nausea, mild dyspnea??and pre-syncope. At the time of discharge from [facility], was prescribed naproxen for pain control. ?? Denies history of OLGA, dysphagia, melena, hematochezia. Denies chronic use of PPI/H2B or other acid reducing medications. ?? Hgb at??presentation >> 6.0 Transfused 1U pRBC and initially increased to 8.1 then settled back to 7.0 ?? FOBT+ during ED workup. Review of Systems Per HPI Physical Exam Vitals & Measurements T:??37.3?C ??(Tympanic)?? TMIN:??36.5?C ??(Temporal Artery)?? TMAX:??37.3?C ??(Tympanic)?? HR:??103??(Monitored)?? RR:??38?? BP:??120/77?? SpO2:??99%?? HT:??157.000??cm?? WT:??68.00??kg??(Estimated)?? O2 Therapy:??Room air?? NAD, non-toxic, slight pallor ?? Non labored breathing, no gross tachypnea ?? RRR ?? Soft, NT, ND Assessment/Plan 1.??Symptomatic anemia??D64.9 2.??Melena??K92.1 62 yo F with chronic comorbidities including RA, MRSA bacteremia and recently removal of hardware from L4/L5 presenting with melanotic stool, FOBT positivity and recent/regular use of naproxen. Findings consistent with UGIB, peptic ulcer vs gastritis/duodenitis. Unclear severity of chronic liver dysfunction, however, variceal bleed is on the differential. ?? - High dose PPI (pantoprazole 40mg IV, bid) ?? - Serial H&H and recommend 2U pRBCs for Hgb of 6.0 >> most recent 7.0 which is likely the true value after the single unit, would strongly consider transfusing a second ?? - Plan for EGD later this morning, keep NPO Problem List/Past Medical History Ongoing Alcohol withdrawal syndrome Generalized anxiety disorder Genital lichen sclerosus Lumbosacral radiculopathy Menopause present Methicillin resistant Staphylococcus aureus Pneumonia Pulmonary hypertension Rheumatoid arthritis Right shoulder injury Sepsis Wernicke's disease Wernicke's hemianopic pupil Historical Procedure/Surgical History ???Due 03/2026 (04/04/2021)???Liver Biopsy (2002)???Bunionectomy???Dilation and curettage???Procedure on foot Medications Inpatient Protonix, 80 mg= 2 EA, IV Push, Daily vancomycin, 650 mg, IV Piggyback, Once Home !-Flexeril !-Keflex 500 mg oral capsule, 500 mg= 1 cap, Oral, QID benzonatate 200 mg oral capsule, 200 mg= 1 cap, Oral, TID, PRN cyclobenzaprine 10 mg oral tablet, 10 mg= 1 tab, Oral, TID, PRN Enbrel SureClick 50 mg/mL subcutaneous solution, 50 mg, Subcutaneous, every week folic acid 1 mg oral tablet, 1 mg= 1 tab, Oral, Daily furosemide 40 mg oral tablet, 40 mg= 1 tab, Oral, every morning hydroxychloroquine 200 mg oral tablet, 200 mg= 1 tab, Oral, BID imipramine 25 mg oral tablet, 25 mg= 1 tab, Oral, TID ipratropium-albuterol 0.5 mg-2.5 mg/3 mL inhalation solution, 3 mL, NEB, every 6 hr, PRN meclizine 25 mg oral tablet, 25 mg= 1 tab, Oral, TID, PRN methotrexate 2.5 mg oral tablet, 15 mg= 6 tab, Oral, every 6 hr montelukast 10 mg oral tablet, 10 mg= 1 tab, Oral, Daily naproxen 500 mg oral tablet, 250 mg= 0.5 tab, Oral, BID ondansetron 4 mg oral tablet, disintegrating, 4 mg= 1 tab oxyCODONE 5 mg oral capsule, 5 mg= 1 cap, Oral, every 6 hr, PRN Probiotic Blend 2 million cell-50 mg capsule, 1 cap, Oral, Daily Proventil HFA 90 mcg/inh inhalation aerosol, 2 puffs, Inhale, every 4 hr, PRN spironolactone 25 mg oral tablet, 25 mg= 1 tab, Oral, Daily thiamine 100 mg oral tablet, 100 mg= 1 tab, Oral, Daily Vitamin B12 1000 mcg oral tablet, 1000 mcg= 1 tab, Oral, Daily Allergies Biaxin clarithromycin halobetasol topical??(Skin rash) Social History Electronic Cigarette/Vaping Electronic Cigarette Use: Never. Sexual Other contraceptive use: Menopause. Tobacco Never tobacco user Tobacco Use:. Family History Hypertensive disorder: Father. Malignant tumor of breast: Mother and Grandmother (M). Osteoporosis: Mother. Immunizations Vaccine Date Status influenza virus vaccine, inactivated 06/20/2008 Recorded diphth/tetanus/pertussis/polio/haemophil 05/20/2008 Recorded Comments : tetanus toxoid, adsorbed influenza virus vaccine, inactivated 06/08/2005 Recorded diphth/tetanus/pertussis/polio/haemophil 08/20/1996 Recorded Comments : tetanus toxoid, adsorbed rubella virus vaccine Recorded Electronically Signed on 08/25/22 07:44 AM Poncho Mendoza MD Discharge summary * Vinny Castelan MD: PERFORM Event Display: Discharge Summary Authored Date: [id number] DEVENDRA MCCORMICK :1960 Age:62 years Sex:Female Visit Date:08/24/2022 Primary Care Physician: Rocio STEVE, Eric Tran MD Hospital Course The patient is a 62-year-old female who presented to the emergency department on 08/25/2022 with a chief complaint of melanotic stools. ??Patient was admitted to the hospital for acute symptomatic anemia with a hemoglobin of 6 was transfused 2 units of PRBCs for suspected upper GI bleed. ??Patient was placed on high-dose Protonix and general surgery consultation was placed for endoscopy. ??Patient w as made n.p.o. and endoscopy was performed later and a large gastric ulcer was seen approximately 5cm at the distal greater curvature approaching the prepyloric region. ??Patient's hemoglobin has remained stable. ??Patient at the time of discharge she was tolerating her diet well and stable for discharge home with VNA services to be resumed with care home and home care aides. ??Patient currently has osteomyelitis and has a PICC line in place and will continue with her vancomycin twice daily which she is giving to her self at home. ??Patient will require follow-up with her PCP within 1 week. ??Patient to have follow-up EGD in approximately 6 weeks and to follow-up with general surgerywithin 1 to 2 weeks. Physical Exam Vitals & Measurements T:??36.8?C ??(Temporal Artery)?? TMIN:??36.3?C ??(Temporal Artery)?? TMAX:??37.6?C ??(Temporal Artery)?? HR:??74??(Peripheral)?? RR:??19?? BP:??137/86?? SpO2:??99%?? WT:??63??kg?? Pain Score:??0?? O2 Therapy:??Room air?? General: Pleasant, alert and oriented, well nourished, appear comfortable, and in no acute distress. Eye: PERRL, EOMI, normal conjunctiva. HENT: Atraumatic, normocephalic, normal hearing, moist oral mucosa, no scleral icterus. Neck: Supple, non-tender, no crepitus, no JVD, no lymphadenopathy. Lungs: Clear to auscultation, non-labored respiration, no tachypnea. Chest: symmetrical rise and fall. Heart: Normal rate, regular rhythm, no murmur, gallop or peripheral edema, (+) distal pulses. Abdomen: Soft, non-tender, non-distended, normal bowel sounds, no masses. : no suprapubic tenderness, no CVA tenderness. Musculoskeletal: Normal range of motion and strength, no tenderness or swelling. PICC in place - left. Skin: Skin is warm, dry and appropriate for ethnicity, no rashes or lesions. Neurologic: Awake, alert and oriented X4, CN II-XII intact. Psychiatric: Cooperative, appropriate mood and affect. Medications Inpatient acetaminophen, 650 mg= 2 tab, Oral, every 6 hr, PRN Carafate, 1 g= 1 tab, Oral, QID folic acid, 1 mg= 1 tab, Oral, Daily imipramine, 25 mg, Oral, TID Lactated Ringers Injection 1,000 mL, 1000 mL, IV lidocaine 1% injectable solution, 5 mg= 0.5 mL, Intradermal, As Directed, PRN LORazepam, 0.5 mg= 1 tab, Oral, every 6 hr, PRN melatonin 3 mg oral tablet, 9 mg= 3 tab, Oral, every night at bedtime, PRN montelukast, 10 mg= 1 tab, Oral, Daily Normal Saline Flush, 10 mL, IV Push, every 12 hr (kee) ondansetron, 4 mg= 2 mL, IV Push, every 6 hr, PRN oxyCODONE 5 mg oral tablet, 5 mg= 1 tab, Oral, every 6 hr, PRN pneumococcal 23-polyvalent vaccine, 0.5 mL, IM, Once, PRN Protonix, 40 mg= 1 EA, IV Push, BID Proventil HFA 90 mcg/inh inhalation aerosol, 2 puffs, Inhale, every 4 hr, PRN saccharomyces boulardii lyo 250 mg oral capsule, 1 cap, Oral, BID Sodium Chloride 0.9% 1,000 mL, 1000 mL, IV thiamine, 100 mg= 1 tab, Oral, Daily vancomycin, 750 mg= 150 mL, IV Piggyback, every 12 hr Home Carafate 1 g oral tablet, 1 g= 1 tab, Oral, QID Enbrel SureClick 50 mg/mL subcutaneous solution, 50 mg, Subcutaneous, every week ferrous sulfate 325 mg (65 mg elemental iron) oral delayed release tablet, 325 mg= 1 tab, Oral, Daily folic acid 1 mg oral tablet, 1 mg= 1 tab, Oral, Daily hydroxychloroquine 200 mg oral tablet, 200 mg= 1 tab, Oral, BID imipramine 25 mg oral tablet, 25 mg= 1 tab, Oral, TID magnesium oxide 400 mg (241.3 mg elemental magnesium) oral tablet, 400 mg= 1 tab, Oral, BID oxyCODONE 5 mg oral capsule, 5 mg= 1 cap, Oral, every 6 hr, PRN Probiotic Blend 2 million cell-50 mg capsule, 1 cap, Oral, Daily Protonix 40 mg oral delayed release tablet, 40 mg= 1 tab, Oral, BID thiamine 100 mg oral tablet, 100 mg= 1 tab, Oral, Daily vancomycin, 650 mg, IV Piggyback, every 12 hr Vitamin B12 1000 mcg oral tablet, 1000 mcg= 1 tab, Oral, Daily Procedure/Surgical History ???EGD - Esophagogastroduodenoscopy (08/25/2022)???Due 03/2026 (04/04/2021)???Liver Biopsy (2002)???Bunionectomy???Dilation and curettage???Procedure on foot Social History Electronic Cigarette/Vaping Electronic Cigarette Use: Never. Sexual Other contraceptive use: Menopause. Tobacco Never tobacco user Tobacco Use:. Discharge Plan Discharge planning greater than 30 minutes. 1.??Symptomatic anemia??D64.9 The patient is a 62-year-old female who presented to the emergency department on 08/25/2022 with a chief complaint of melanotic stools. ??Patient was admitted to the hospital for acute symptomatic anemia with a hemoglobin of 6 was transfused 2 units of PRBCs for suspected upper GI bleed. ??Patient was placed on high-dose Protonix and general surgery consultation was placed for endoscopy. ??Patient w as made n.p.o. and endoscopy was performed later and a large gastric ulcer was seen approximately 5cm at the distal greater curvature approaching the prepyloric region. ??Patient's hemoglobin has remained stable. ??Patient at the time of discharge she was tolerating her diet well and stable for discharge home with VNA services to be resumed with care home and home care aides. ??Patient currently has osteomyelitis and has a PICC line in place and will continue with her vancomycin twice daily which she is giving to her self at home. ??Patient will require follow-up with her PCP within 1 week. ??Patient to have follow-up EGD in approximately 6 weeks and to follow-up with general surgerywithin 1 to 2 weeks. 2.??Melena??K92.1 3.??Rheumatoid arthritis??M06.9 4.??Upper GI bleed??K92.2 5.??Gastric ulcer??K25.9 6.??Acute blood loss anemia??D62 Orders: acetaminophen, 650 mg = 2 tab, Oral, Tab, every 6 hr, PRN pain, First Dose: 08/25/22 16:34:00 EST, Routine Protonix, 40 mg = 1 EA, IV Push, Powder-Inj, BID, First Dose: 08/25/22 21:00:00 EST, Routine Protonix 40 mg oral delayed release tablet, 40 mg = 1 tab, Oral, BID, # 60 tab, 0 Refill(s), Pharmacy: [id number], 157, cm, 08/24/22 18:58:00 EST, Height/Length Dosing, 68, kg, 08/24/22 18:58:00 EST, Weight Dosing Carafate, 1 g = 1 tab, Oral, Tab, QID, First Dose: 08/25/22 16:00:00 EST, Physician Stop, Routine Carafate 1 g oral tablet, 1 g = 1 tab, Oral, QID, # 56 tab, 0 Refill(s), Pharmacy: [id number], 157, cm, 08/24/22 18:58:00 EST, Height/Length Dosing, 68, kg, 08/24/22 18:58:00 EST, Weight Dosing Diet Order, 08/26/22 8:12:00 EST, Regular Discharge Activity Restrictions, as tolerated Discharge Diet Instruction, Regular home diet Discharge Follow Up Instructions, 08/26/22 8:43:00 EST, When following are met: Alert and awake, Follow up with PCP within 1 week. Call for appointment. Discharge after antibiotic is infused. Discharge Patient, 08/26/22 8:43:00 EST, Home with Home Health, Resume VNA with care home, and Home care aides. All Diagnoses This Visit Symptomatic anemia Melena Rheumatoid arthritis Upper GI bleed Gastric ulcer Acute blood loss anemia Patient Education Gastrointestinal Bleeding, [id number] Blood Transfusion, Adult, [id number] Follow Up With When Contact Information [facility], Eric Tran MD 09/08/2022 03:[address] [id number] [phone] Additional Instructions: HOSPITAL FOLLOW UP Medication Reconciliation New Prescription pantoprazole (Protonix 40 mg oral delayed release tablet)1 tab Oral (given by mouth) 2 times a day.Refills: 0. ?? sucralfate (Carafate 1 g oral tablet)1 tab Oral (given by mouth) 4 times a day for 2 weeks. Refills: 0. ?? Unchanged cyanocobalamin (Vitamin B12 1000 mcg oral tablet)1 tab Oral (given by mouth) every day. for 30 days. ?? etanercept (Enbrel SureClick 50 mg/mL subcutaneous solution)50 Milligrams Subcutaneous (under the skin) every week. ?? ferrous sulfate (ferrous sulfate 325 mg (65 mg elemental iron) oral delayed release tablet)1 tab Oral (given by mouth) every day. ?? folic acid (folic acid 1 mg oral tablet)1 tab Oral (given by mouth) every day. Take for 30 days. ?? hydroxychloroquine (hydroxychloroquine 200 mg oral tablet)1 tab Oral (given by mouth) 2 times a day. ?? imipramine (imipramine 25 mg oral tablet)1 tab Oral (given by mouth) 3 times a day. ?? magnesium oxide (magnesium oxide 400 mg (241.3 mg elemental magnesium) oral tablet)1 tab Oral (given by mouth) 2 times a day. ?? Other Prescription (Probiotic Blend 2 million cell-50 mg capsule)1 Capsules Oral (given by mouth) every day. ?? oxyCODONE (oxyCODONE 5 mg oral capsule)1 Capsules Oral (given by mouth) every 6 hours as needed as needed for pain. Refills: 0. ?? thiamine (thiamine 100 mg oral tablet)1 tab Oral (given by mouth) every day. thiamine HCl (vitamin B1) 100 mg tablet; for 30 days. ?? [id number] Milligrams IV Piggyback every 12 hours. as an infusion over 60 minutes.. ?? Discontinued albuterol (Proventil HFA 90 mcg/inh inhalation aerosol)2 Puffs Inhale (breathe in) every 4 hours asneeded other (see comment). Take as needed. ?? benzonatate (benzonatate 200 mg oral capsule)1 Capsules Oral (given by mouth) 3 times a day as needed other (see comment). Take as needed. ?? cephalexin (!-Keflex 500 mg oral capsule)1 Capsules Oral (given by mouth) 4 times a day for 7 Days.Refills: 0. ?? cyclobenzaprine (!-Flexeril) ?? cyclobenzaprine (cyclobenzaprine 10 mg oral tablet)1 tab Oral (given by mouth) 3 times a day as needed as needed for muscle spasm. ?? furosemide (furosemide 40 mg oral tablet)1 tab Oral (given by mouth) every morning. ?? ipratropium-albuterol (ipratropium-albuterol 0.5 mg-2.5 mg/3 mL inhalation solution)3 Milliliters Nebulized inhalation (inhale using nebulizer) every 6 hours as needed other (see comment). Take as needed. ?? meclizine (meclizine 25 mg oral tablet)1 tab Oral (given by mouth) 3 times a day as needed as needed for dizziness. ?? methotrexate (methotrexate 2.5 mg oral tablet)6 tab Oral (given by mouth) every 6 hours. ?? montelukast (montelukast 10 mg oral tablet)1 tab Oral (given by mouth) every day. ?? naproxen (naproxen 500 mg oral tablet)0.5 tab Oral (given by mouth) 2 times a day. ?? ondansetron (ondansetron 4 mg oral tablet, disintegrating)1 tab. ?? spironolactone (spironolactone 25 mg oral tablet)1 tab Oral (given by mouth) every day. Electronically Signed on 08/26/22 08:54 AM Vinny Castelan MD Patient Care team information Personnel Name: Rocio [facility], Eric Tran MD Address: Address: [address] [address]- [place]
--- OUTSIDE RECORDS SUMMARY | 2022-10-13 11:26 | XMS_ITS | Continuity of Care Document ---
Author Name Unknown Organization [facility] Address [address] [place] [address] Care Team Providers Care Commercial Fisher Name Role Phone Primeau IPHCSanford Primary Care Physician Encounter [facility] Date(s): 03/13/22 - 09/22/[address] [address] Discharge Disposition: Home or Self Care Attending Physician: Katarina Vizcarra CNM Admitting Physician: Katarina Vizcarra CNM Referring Physician: Katarina Vizcarra CNM Allergies, Adverse Reactions, Alerts Substance Reaction Severity Status clarithromycin Unknown Active halobetasol topical Skin rash Unknown Active Biaxin Unknown Active Assessment and Plan Future Appointments Future Scheduled Tests Radiology* MG Mammo Screening Bilateral w/ [place] 03/13/22 Immunizations Given and Recorded Vaccine Date Status [...] QID, # 56 tab, 0 Refill(s), Pharmacy: [id number] 157, cm, 08/24/22 18:58:00 EST, Height/Length Dosing, [...] pain, # 4 cap, 0 Refill(s), Pharmacy: [facility], 160, cm, 02/09/22 13:58:00 EDT, Height/Length Dosing, 68, kg, 02/09/22 13:58:00 EDT, Weight Dosing Start Date: 02/09/22 Status: Ordered Probiotic Blend 2 million cell-50 mg capsule Probiotic Blend 2 million cell-50 mg capsule, 1 cap, Oral, Daily Start Date: 02/23/22 Status: Ordered Protonix 40 mg oral delayed release tablet 40 mg = 1 tab, Oral, BID, # 60 tab, 0 Refill(s), Pharmacy: [facility]58, 157, cm, 08/24/22 18:58:00 EST, Height/Length Dosing, 68, kg, 08/24/22 18:58:00 EST, Weight Dosing Start Date: 08/26/22 Status: Ordered thiamine 100 mg oral tablet 100 mg = 1 tab, Oral, Daily, thiamine HCl (vitamin B1) 100 mg tablet; for 30 days Start Date: 02/23/22 Status: Ordered vancomycin 650 mg =, IV Piggyback, every 12 hr, as an infusion over 60 minutes., 0 Refill(s) Start Date: 08/09/22 Status: Ordered Vitamin B12 1000 mcg oral tablet 1,000 mcg = 1 tab, Oral, Daily, for 30 days Start Date: 02/23/22 Status: Ordered Problem List Condition Confirmation Course Effective Dates [...] LSIL; 10/23/05 - Colpo - ASCUS/Neg - [place] EXOCVX, 08/03/06 - ASCUS/POs; 10/16/06 - Colpo - LGSIL/Pos - [place] EXOCXV; 04/16/07 - [facility]po - ASCUS/Neg; 12/10/07 - WNL/Neg; 09/18/08 - WNL/Neg; 02/02/12 - WNL/Neg; 02/01/17 - ASCUS/Neg; 02/05/18 - Neg/Neg; 04/04/21 - Neg/Neg 2Right foot - rheumatoid arthritis; left foot surgery 02/05/2009; left foot 11/05/2009 and 10/20/2010 Social History Social History Type Response Tobacco Never tobacco user T obacco Use:. 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 HALOBETASOL: Rash? Medications Reviewed Medications Calcium 500 + D 02/04/18?entered?Elham Kumar MA cranberry 02/04/18?entered?Elham Kumar MA Culturelle 02/04/18?entered?Elham Kumar MA EnbreL SureClick 50 mg/mL (1 mL) subcutaneous pen injector 03/16/20?filled?[facility] Estrace 0.01% (0.1 mg/gram) vaginal cream Insert 1 g by vaginal route. 03/30/20?prescribed?KATARINA VILLASENOR CNM folic acid 02/04/18?entered?Elham Kumar MA Glucosamine Chondroitin MaxStr 02/04/18?entered?Elham Kumar MA hydrOXYchloroQUINE 200 mg tablet 12/29/19?filled?[facility] imipramine 25 mg tablet 12/29/19?filled?[facility] magnesium gluconate 02/04/18?entered?Elham Kumar MA meclizine 12.5 mg tablet Take 2 tablet(s) 3 times a day by oral route as needed. 02/04/18?entered?Elham Kumar MA meclizine 25 mg tablet 04/02/18?filled?[facility] metHOTREXate sodium 2.5 mg tablet 12/29/19?filled?[facility] montelukast 10 mg tablet Take 1 tablet(s) every day by oral route. 03/13/20?filled?[facility] naproxen 500 mg tablet 03/15/20?filled?[facility] PlaqueniL 02/04/18?entered?Elham Kumar MA triamcinolone acetonide 0.1 % topical ointment APPLY A THIN LAYER TO THE AFFECTED AREA(S) BY TOPICAL ROUTE AT BEDTIME NEEDED 05/14/18?filled?[facility] Vaccines Vaccines not reviewed (last reviewed 02/05/2018) Vaccine Type?Date?Amt.?Route?Site?NDC?Lot #?Mfr.?Exp. Date?VIS?VIS Given?Clinical Practice Consultant Influenza influenza, seasonal, injectable, preservative free?11/01/08? influenza, seasonal, injectable?10/20/05? Measles, Mumps, Rubella rubella?//01? Tetanus tetanus toxoid, adsorbed?10/01/08? tetanus toxoid, adsorbed?01/01/97? 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 Date of Last Mammogram: 05/13/2018. Date of Last Pap Smear: 02/05/2018 (Notes: Pap Due - 01/2021 05/22 - [facility] - LSIL; 06/08/05 - LSIL; 10/23/05 - [facility]po - ASCUS/Negative - [place] EXOCVX, 08/03/06 - ASCUS/POsitive; 10/16/06 - Colpo - LGSIL/Positive - [place] EXOCXV; 04/16/07 - Colpo - ASCUS/Negative; 12/10/07 - WNL/Negative; 09/18/08 - WNL /Negative; 02/02/12 - WNL/Negative; 02/01/17 - ASCUS/Negative; 02/05/18 - Negative/Negative;). Obstetric History Reviewed Obstetric History TOTAL?FULL?PRE?AB. I?AB. S?ECTOPICS?MULTIPLE?LIVING 1?1?1 Family History Reviewed Family History Mother?- Malignant tumor of breast ?- Osteoporosis Father?- Hypertensive disorder Maternal Grandmother?- Malignant tumor of ovary Social History Reviewed Social History Advanced Directive What is your code status?: 0 Education and Occupation What is your occupation?: Disabled Substance Use Do you or have you ever smoked tobacco?: Former smoker (Notes: Socially over 30 years ago) How much tobacco do you chew?: none What was the date of your most recent tobacco screening?: 04/04/2021 What is your level of alcohol consumption?: Occasional Other Live alone or with others?: with others Gender Identity and LGBTQ Identity Surgical History Reviewed Surgical History Dilation and Curettage Orthopedic Surgery - Right foot - rheumatoid arthritis; left foot surgery 02/05/2009; left foot 11/05/2009 and 10/20/2010 ?? 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 Menopausal Symptoms: no menopausal symptoms; normal vaginal lubrication; did not use Estrace cream Vaginal Bleeding: history of menopause having occurred; no history of post menopausal bleeding Urinary Symptoms: no hematuria; no incontinence; no nocturia; no urinary frequency Breast: no breast lump; no nipple discharge; no breast pain Psychological Symptoms: no depression; no anxiety ROS Sexual problems:: Not sexually active. Patient reports arthralgias/joint pain (Arthritis) but reports no muscle weakness and no swelling in the extremities. She reports numbness (To RLE due to prior surgery). She reports no fever, no fatigue, and no significant weight loss/gain. She reports no chest pain, no SOB, and no edema. She reports no difficulty swallowing, no abdominal pain, and no bowel movement changes. She reports no abnormal bleeding, no difficulty urinating, no lesion, and no discharge. She reports no endocrine symptoms. She reports no PMDD symptoms. She reports no menopausal symptoms. She reports no depression. Physical Exam Patient is a 60-year-old female. ?? Train Controller: Train Controller: offered and declined. ?? Constitutional: General Appearance: healthy-appearing, well-nourished, and well-developed. ?? Psychiatric: Orientation: to time, place, and person. Mood and Affect: normal mood and affect and active and alert. ?? Skin: Appearance: no rashes or lesions. ?? Neck: Neck: supple and no masses. Thyroid: non-tender and no enlargement. ?? Lungs: Respiratory Effort: no intercostal retractions or accessory muscle usage. Auscultation: clear to auscultation. ?? Cardiovascular: Auscultation: RRR and no murmur. Peripheral Vascular: no LLE edema or RLE edema. ?? Abdomen: Auscultation/Inspection/Palpation: no tenderness or CVA tenderness and non-distended and normal bowel sounds. ?? Breast: Inspection/Palpation: no tenderness, skin changes, abnormal secretions, or distinct masses and nipple appearance normal. ?? Female Genitalia: Vulva: no masses, atrophy, or lesions. Vagina: no tenderness. Cervix: grossly normal, no cervical motion tenderness, and sample taken for a Pap smear. Uterus: normal size and shape and midline, mobile, and non-tender. Adnexa/Parametria: no adnexal tenderness or ovarian mass. ?? Lymph Nodes: Palpation: non tender submandibular nodes. Assessment / Plan Patient examined by [facility], under my guidance. ? 1. Gynecologic examination - Normal spa technician exam, essentially healthy woman. Good diet, active. ? Pap done today. If negative with negative HR HPV, will repeat in five years. Otherwise, will follow-up per clinical guidelines based on results. ?? Z01.419: Encounter for gynecological examination (general) (routine) without abnormal findings PAP WITH HPV TESTING ? Return to Office at [facility] on or around 02/27/2022 to see KATARINA VILLASENOR CNM for HME 30 at P_OB/METER INSTALLER AND REMOVER on or around 04/04/2022 KATARINA VILLASENOR CNM for HME 30 at P_[facility]/METER INST[employer]ER AND REMOVER on 04/04/2022 at 02:00 PM Encounter Sign-Off Encounter signed-off by KATARINA VILLASENOR CNM, 04/04/2021. Encounter performed and documented by KATARINA VILLASENOR CNM Encounter reviewed & signed by KATARINA VILLASENOR CNM on 04/04/2021 at 3:58pm Audit history Electronically Signed on 04/26/22 03:23 PM Padmini Tarango Patient Care team information Personnel Name: [facility], Sanford Tran MD Address: Address: [address]
--- OUTSIDE RECORDS SUMMARY | 2022-10-13 11:26 | XMS_ITS | Continuity of Care Document ---
Author Name Unknown Organization [facility] Address [address] [place] [address] Care Team Providers Care Robotic Technician Name Role Phone Primeau [facility], Eric Tran Primary Care Physician [id number] Date(s): 08/24/22 - 09/28/[address] [address] Discharge Disposition: Home or Self Care Attending Physician: Lyndsay Morgan Admitting Physician: Lyndsay Morgan Referring Physician: Lyndsay Morgan Allergies, Adverse Reactions, Alerts Substance Reaction Severity [...] QID, # 56 tab, 0 Refill(s), Pharmacy: [facility], 157, cm, 08/24/22 18:58:00 EST, Height/Length Dosing, 68, kg, 01/05/23 18:58:00 EST, Weight Dosing Start Date: 08/26/22 [...] pain, # 4 cap, 0 Refill(s), Pharmacy: [facility]58, 160, cm, 02/09/22 13:58:00 EDT, Height/Length Dosing, 68, kg, 02/09/22 13:58:00 EDT, Weight Dosing Start Date: 02/09/22 Status: Ordered Probiotic Blend 2 million cell-50 mg capsule Probiotic Blend 2 million cell-50 mg capsule, 1 cap, Oral, Daily Start Date: 02/23/22 Status: Ordered Protonix 40 mg oral delayed release tablet 40 mg = 1 tab, Oral, BID, # 60 tab, 0 Refill(s), Pharmacy: [facility] #58, 157, cm, 08/24/22 18:58:00 EST, Height/Length [...] LSIL; 10/23/05 - Colpo - ASCUS/Neg - [place] EXOCVX, 08/03/06 - ASCUS/POs; 10/16/06 - Colpo - LGSIL/Pos - [place] EXOCXV; 04/16/07 - Colpo - ASCUS/Neg; 12/10/07 - WNL/Neg; 09/18/08 - WNL/Neg; 02/02/12 - WNL/Neg; 02/01/17 - ASCUS/Neg; 02/05/18 - Neg/Neg; 04/04/21 - Neg/Neg 2Right foot - rheumatoid arthritis; left foot surgery 02/05/2009; left foot 11/05/2009 and 10/20/2010 Social History Social History Type Response Tobacco Never tobacco user T obacco Use:. Sex Female Patient Care team information Personnel Name: Eric May MD Address: Address: [address] [address]- [place]
--- OUTSIDE RECORDS SUMMARY | 2022-10-13 11:26 | XMS_ITS | Continuity of Care Document ---
Author Name Unknown Organization [facility] Address [address] [place] [address] Care Team Providers Care Communications Consultant Name Role Phone Primeau IPHCEric Primary Care Physician Encounter [facility] [id number] Date(s): 08/18/22 - 08/18/[address] [address] Discharge Disposition: Home or Self Care Attending Physician: Lyndsay Morgan Admitting Physician: Lyndsay Morgan Referring Physician: Lyndsay Morgan Allergies, Adverse Reactions, Alerts Substance Reaction Severity Status clarithromycin Unknown Active halobetasol topical Skin rash Unknown Active Biaxin Unknown Active Assessment and Plan Future Scheduled Tests Radiology* MG Mammo Screening [...] 3Result Comment: wrong 4Result Comment: wrong Medications !-Flexeril 0 Refill(s) Start Date: 02/07/22 Status: Ordered !-Keflex 500 mg oral capsule 500 mg = 1 cap, Oral, QID, # 28 cap, 0 Refill(s), Pharmacy: [facility] #58, 160, cm, 02/09/2213:58:00 EDT, Height/Length Dosing, 68, kg, 02/09/22 13:58:00 EDT, Weight Dosing Start Date: 02/09/22 Stop Date: 02/16/22 Status: Ordered benzonatate 200 mg oral capsule 200 mg = 1 cap, Oral, TID, PRN other (see comment), Take as needed Start Date: 02/23/22 Status: Ordered cyclobenzaprine 10 mg oral tablet 10 mg = 1 tab, Oral, TID, PRN as needed for muscle spasm, # 30 tab, 0 Refill(s) Start Date: 02/07/22 Status: Ordered Enbrel SureClick 50 mg/mL subcutaneous solution 50 mg =, Subcutaneous, every week, # 3.92 mL, 0 Refill(s) Start Date: 02/07/22 Status: Ordered folic acid 1 mg oral tablet 1 mg = 1 tab, Oral, Daily, Take for 30 days Start Date: 02/23/22 Status: Ordered furosemide 40 mg oral tablet 40 mg = 1 tab, Oral, every morning Start Date: 09/13/21 Status: Ordered hydroxychloroquine 200 mg oral tablet 200 mg = 1 tab, Oral, BID, 0 Refill(s) Start Date: 02/07/22 Status: Ordered imipramine 25 mg oral tablet 25 mg = 1 tab, Oral, TID Start Date: 02/23/22 Status: Ordered ipratropium-albuterol 0.5 mg-2.5 mg/3 mL inhalation solution 3 mL, NEB, every 6 hr, PRN other (see comment), Take as needed Start Date: 03/28/22 Status: Ordered meclizine 25 mg oral tablet 25 mg = 1 tab, Oral, TID, PRN as needed for dizziness, # 30 tab, 0 Refill(s) Start Date: 02/07/22 Status: Ordered methotrexate 2.5 mg oral tablet 15 mg = 6 tab, Oral, every 6 hr Start Date: 02/23/22 Status: Ordered montelukast 10 mg oral tablet 10 mg = 1 tab, Oral, Daily Start Date: 02/23/22 Status: Ordered naproxen 500 mg oral tablet 250 mg = 0.5 tab, Oral, BID Start Date: 02/23/22 Status: Ordered ondansetron 4 mg oral tablet, disintegrating 4 mg = 1 tab, 0 Refill(s) Start Date: 02/23/22 Status: Ordered oxyCODONE 5 mg oral capsule 5 mg = 1 cap, Oral, every 6 hr, PRN as needed for pain, # 4 cap, 0 Refill(s), Pharmacy: [facility], 160, cm, 02/09/22 13:58:00 EDT, Height/Length Dosing, 68, kg, 02/09/22 13:58:00 EDT, Weight Dosing Start Date: 02/09/22 Status: Ordered Probiotic Blend 2 million cell-50 mg capsule Probiotic Blend 2 million cell-50 mg capsule, 1 cap, Oral, Daily Start Date: 02/23/22 Status: Ordered Proventil HFA 90 mcg/inh inhalation aerosol 2 puffs, Inhale, every 4 hr, PRN other (see comment), Take as needed Start Date: 09/13/21 Status: Ordered spironolactone 25 mg oral tablet 25 mg = 1 tab, Oral, Daily Start Date: 09/13/21 Status: Ordered thiamine 100 mg oral tablet 100 mg = 1 tab, Oral, Daily, thiamine HCl (vitamin B1) 100 mg tablet; for 30 days Start Date: 02/23/22 Status: Ordered Vitamin B12 1000 mcg oral tablet 1,000 mcg = 1 tab, Oral, Daily, for 30 days Start Date: 02/23/22 Status: Ordered Problem List Condition Confirmation Course Effective Dates Status H ealth Status Informant Alcohol withdrawal syndrome Confirmed 09/14/21 Active Generalized anxiety disorder Confirmed 09/13/21 Active Genital lichen sclerosus Confirmed 07/19/18 Active Right shoulder injury Confirmed Active Lumbosacral radiculopathy Confirmed Active Menopause present Confirmed Active Methicillin resistant Staphylococcus aureus 1 Confirmed 08/29/21 Active Pneumonia Confirmed 09/13/21 Active Pulmonary hypertension Confirmed 09/13/21 Active Rheumatoid arthritis Confirmed 09/10/21 Active Sepsis Confirmed Active Wernicke's disease Confirmed 09/13/21 Active 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 1MRSA in blood culture needs a negative swab to come off precautions Procedures Procedure Date Related Diagnosis Body Site Status Due 03/2026 1 04/03/21 Completed Liver Biopsy 2002 Completed Bunionectomy Completed Dilation and curettage Co mpleted Procedure on foot 2 Compl eted 1Pap Due - 03/2026 05/22 - [facility] - LSIL; 06/08/05 - LSIL; 10/23/05 - Colpo - ASCUS/Neg - [place] EXOCVX, 08/03/06 - ASCUS/POs; 10/16/06 - Colpo - LGSIL/Pos - [place] EXOCXV; 04/16/07 - Colpo - ASCUS/Neg; 12/10/07 - WNL/Neg; 09/18/08 - WNL/Neg; 02/02/12 - WNL/Neg; 02/01/17 - ASCUS/Neg; 02/05/18 - Neg/Neg; 04/04/21 - Neg/Neg 2Right foot - rheumatoid arthritis; left foot surgery 02/05/2009; left foot 11/05/2009 and 10/20/2010 Results Laboratory List Name Date C-Reactive Protein High Sensitivity 07/22 Creatinine 08/18/22 Sedimentation Rate (ESR) 08/18/22 Vancomycin Lvl Trough 08/18/22 Most recent to oldest [Reference Range]: 1 Vanco Tr [5.0-10.0 ug/mL] 18.6 ug/mL *HI* (08/18/22 8:37 AM) eGFR Non-AA [>=60] 63 (08/18/22 8:37 AM) eGFR AA [>=60] 63 (08/18/22 8:37 AM) CRP High Sens [0.00-3.00 mg/L] 123.25 mg /L *HI* (08/18/22 8:37 AM) Creatinine Level [0.55-1.02 mg/dL] 1.01 mg/dL (08/18/22 8:37 AM) ESR, Westergren [0-30 mm/hr] 74 mm/hr *HI* (08/18/22 8:37 AM) Vital Signs Most recent to oldest [Reference Range]: 1 Temperature Temporal Artery [36-38 Deg C ] 37.4 Deg C (08/18/22 8:09 AM) Peripheral Pulse Rate [60-100 bpm] 95 bp m (08/18/22 8:09 AM) Respiratory Rate [12-24 br/min] 16 br/mi n (08/18/22 8:09 AM) Blood Pressure [90-140/60-90 mmHg] 133/8 1mmHg (08/18/22 8:09 AM) Mean Arterial Pressure Cuff 93 mmHg (08/18/22 8:09 AM) Blood Pressure Location Right arm (08/18/22 8:09 AM) Blood Pressure Method Automatic (08/18/22 8:09 AM) Social History Social History Type Response Tobacco Never tobacco user T obacco Use:. Sex Female Patient Care team information Personnel Name: [facility], Eric Tran MD Address: Address: [address] [address]- [place]
--- OUTSIDE RECORDS SUMMARY | 2022-10-13 11:26 | XMS_ITS | Continuity of Care Document ---
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 Role Phone [place] [facility], Eric Tran Primary Care Physician [facility] Date(s): 07/22/22 - 07/23/[address] [id number] Discharge Disposition: Discharge/Transfer - Other Type of Inst Attending Physician: Deisy Sargent MD Admitting Physician: Deisy Sargent MD Allergies, Adverse Reactions, Alerts Substance Reaction Severity Status clarithromycin Unknown Active halobetasol topical Skin rash Unknown Active Biaxin Unknown Active Assessment and Plan Future Scheduled Tests Radiology* MG Mammo Screening Bilateral w/ [place] 03/13/22 Functional Status 07/23/22 ADLs Independent Activity Status ADL Up to toilet 07/22/22 Family Member Travel History No recent t [...] QID, # 28 cap, 0 Refill(s), Pharmacy: [id number], 160, cm, 02/09/2213:58:00 EDT, Height/Length Dosing, [...] pain, # 4 cap, 0 Refill(s), Pharmacy: [id number], 160, cm, 02/09/22 13:58:00 EDT, Height/Length [...] LSIL; 10/23/05 - [facility]po - ASCUS/Neg - [facility], 08/03/06 - ASCUS/POs; 10/16/06 - [facility] - LGSIL/Pos - [facility]; 04/16/07 - [facility] - ASCUS/Neg; 12/10/07 - WNL/Neg; 09/18/08 - WNL/Neg; 02/02/12 - WNL/Neg; 02/01/17 - ASCUS/Neg; 02/05/18 - Neg/Neg; 04/04/21 - Neg/Neg 2Right foot - rheumatoid arthritis; left foot surgery 02/05/2009; left foot 11/05/2009 and 10/20/2010 Results Laboratory List Name Date SARS-CoV-2 (COVID-19) RNA (ID Now) C-Reactive Protein High Sensitivity (CRP HS) 07/22/22 Sedimentation Rate (ESR) 07/22/22 .Morphology (NCTY) 07/22/22 CBC w/ Diff 07/22/22 Comprehensive Metabolic Panel (CMP) 07/22 Lactic Acid 07/22/22 Lipase Level 07/22/22 Urinalysis with Micro if Indicated and C ulture if Indicated 07/22/22 Automated Diff 07/22/22 Most recent to oldest [Reference Range]: 1 WBC [5.0-10.0 x10^3/mcL] 15.7 x10^3/mcL *HI* (07/22/22 3:41 PM) RBC [4.1-5.3 x10^6/mcL] 4.3 x10^6/mcL (07/22/22 3:41 PM) Neutro Auto [40.0-75.0 %] 77.1 % *HI* (07/22/22 3:41 PM) Lymph Auto [20.0-50.0 %] 15.3 % *LOW* (07/22/22 3:41 PM) [place] Auto [2.0-15.0 %] 5.8 % (07/22/22 3:41 PM) Basophil Auto [0.0-1.0 %] 0.5 % (07/22/22 3:41 PM) BUN [7-18 mg/dL] 17 mg/dL (07/22/22 3:41 PM) UA Color Yellow (07/22/22 3:32 PM) Glucose Level [74-106 mg/dL] 102 mg/dL (07/22/22 3:41 PM) Potassium Level [3.5-5.1 mmol/L] 4.7 mmo l/L (07/22/22 3:41 PM) MCV [80.0-96.0] 77.1 *LOW* (07/22/22 3:41 PM) UA Urobilinogen Normal (07/22/22 3:32 PM) RBC Morph Abnormal (07/22/22 3:41 PM) UA Bili [Negative] Negative (07/22/22 3:32 PM) UA Ketones Negative (07/22/22 3:32 PM) AST [15-37 unit/L] 16 unit/L (07/22/22 3:41 PM) ALT [14-59 unit/L] 12 unit/L *LOW* (07/22/22 3:41 PM) MCHC [31.0-35.0 g/dL] 29.4 g/dL *LOW* (07/22/22 3:41 PM) Sodium Level [136-145 mmol/L] 134 mmol/L *LOW* (07/22/22 3:41 PM) UA Leuk Est Negative (07/22/22 3:32 PM) UA Nitrite Negative (07/22/22 3:32 PM) UA Glucose [Negative] Negative (07/22/22 3:32 PM) Hct [37.0-47.0 %] 33.3 % *LOW* (07/22/22 3:41 PM) Microcyte Small (07/22/22 3:41 PM) Lipase Level [16-77 unit/L] 29 unit/L (07/22/22 3:41 PM) Calcium Level [8.5-10.1 mg/dL] 9.7 mg/dL (07/22/22 3:41 PM) Albumin Level [3.4-5.0 g/dL] 3.2 g/dL *LOW* (07/22/22 3:41 PM) Protein Total [6.4-8.2 g/dL] 9.2 g/dL *HI* (07/22/22 3:41 PM) UA Protein Negative (07/22/22 3:32 PM) MCH [26.0-32.0 pg] 22.7 pg *LOW* (07/22/22 3:41 PM) Neutro Absolute 12.1 x10^3/mcL *NA* (07/22/22 3:41 PM) Bilirubin Total [0.2-1.0 mg/dL] 0.4 mg/d L (07/22/22 3:41 PM) Hgb [12.0-16.0 g/dL] 9.8 g/dL *LOW* (07/22/22 3:41 PM) Alk Phos [46-146 unit/L] 116 unit/L (07/22/22 3:41 PM) UA Blood Negative (07/22/22 3:32 PM) UA Spec Grav 1.010 *NA* (07/22/22 3:32 PM) Platelets [130-450 x10^3/mcL] 846 x10^3/ mcL 1 *CRIT* (07/22/22 3:41 PM) CO2 [21-32 mmol/L] 25 mmol/L (07/22/22 3:41 PM) Lactic Acid Lvl [0.7-2.1 mmol/L] 1.6 mmo l/L (07/22/22 3:41 PM) UA pH 7.5 *NA* (07/22/22 3:32 PM) eGFR Non-AA [>=60] 40 *LOW* (07/22/22 3:41 PM) eGFR AA [>=60] 40 *LOW* (07/22/22 3:41 PM) UA Appear Clear (07/22/22 3:32 PM) Chloride Level [98-107 mmol/L] 97 mmol/L *LOW* (07/22/22 3:41 PM) RDW-CV [11.7-17.0 %] 16.0 % (07/22/22 3:41 PM) Imm Gran Auto [0.0-0.9 %] 0.4 % (07/22/22 3:41 PM) CRP High Sens [0.00-3.00 mg/L] 211.46 mg /L *HI* (07/22/22 7:00 PM) Anisocyte Rare (07/22/22 3:41 PM) Creatinine Level [0.55-1.02 mg/dL] 1.49 mg/dL *HI* (07/22/22 3:41 PM) SARS-CoV-2 (COVID-19) RNA (ID Now) [Not Detected] Not Detected (07/22/22 11:00 PM) Plt Estimation [Adequate] Increased *ABN* (07/22/22 3:41 PM) Eos, Auto [1.0-6.0 %] 0.9 % *LOW* (07/22/22 3:41 PM) ESR, Westergren [0-30 mm/hr] 108 mm/hr *HI* (07/22/22 7:00 PM) 1Result Comment: Called to Rema Hickman MD at 07/22/2022 16:11:03 EST_ Orders for Microbiology Reports Name Date Blood Culture 07/22/22 Blood Culture 07/22/22 Microbiology Reports TEST:Blood Culture STATUS:Order in Progress BODY SITE: SOURCE:Blood COLLECTED DATE/TIME:07/22/22 6:15 PM PRELIMINARY REPORT No growth at 24 hours. TEST:Blood Culture STATUS:Order in Progress BODY SITE: SOURCE:Blood COLLECTED DATE/TIME:07/22/22 6:12 PM PRELIMINARY REPORT No growth at 24 hours. Vital Signs Most recent to oldest [Reference Range]: 1 2 3 Temperature Temporal Artery [36-38 Deg C] 37 Deg C (07/23/22 8:40 AM) 37.2 Deg C (07/23/22 6:04 AM) 36.7 Deg C (07/22/22 5:52 PM) Temperature Temporal Artery (DegF) [97.3-100 Deg F] 98.06 Deg F (07/22/22 5:52 PM) Peripheral Pulse Rate [60-100 bpm] 91 bpm (07/23/22 8:40 AM) 99 bpm (07/23/22 6:04 AM) 95 bpm (07/22/22 11:09 PM) Respiratory Rate [12-24 br/min] 16 br/min (07/23/22 8:40 AM) 15 br/min (07/23/22 6:04 AM) 18 br/min (07/22/22 11:09 PM) Blood Pressure [90-140/60-90 mmHg] 130/94mmHg (07/23/22 8:40 AM) 157/91mmHg *HI* (07/23/22 6:04 AM) 158/93mmHg *HI* (07/22/22 11:09 PM) Mean Arterial Pressure Cuff 101 mmHg (07/22/22 5:52 PM) Weight Dosing 65.77 kg (07/22/22 2:54 PM) Weight Estimated 65.77 kg (07/22/22 2:33 PM) Height/Length Dosing 160.000 cm (07/22/22 2:54 PM) Height/Length Estimated 160.000 cm (07/22/22 2:33 PM) Social History Social History Type Response Tobacco Never tobacco user T obacco Use:. Sex Female Physician Emergency department Note * Lele Newton MD: PERFORM Event Display: ED Note Physician Authored Date: [id number] DEVENDRA MCCORMICK :1960 Age:62 years Sex:Female Visit Date:07/22/2022 Primary Care Physician: Eric May MD Emergency Medicine Physician Handoff Note Verbal report from ??Arie??at??7:15??PM, 07/22/2022. Summary: 62-year-old female with a history of OA, RA (on methotrexate and Plaquenil), and MRSA pneumonia with secondary bacteremia leading to abscess and infection of the clavicle with osteomyelitis requiring prolonged antibiotics and resection of her clavicle presented for evaluation of [id number]-[id number] plain bloating, constipation, and diarrhea of several weeks duration. Evaluation notable for imaging features concerning for osteomyelitis of L4/L5, patient has point tenderness to palpation in this area on exam. Patient also has epidural gas on the left side of the spinal canal at the upper aspect of L4 and some intraosseous gas suggested at the left aspect of the L5 vertebral body. Patient reportedly completed her antibiotics approximately 3 weeks ago and previously received [place] [facility]. ?? Vitals and completed studies were jointly reviewed, these are notable for:?HR 104, RR 18, BP 134/105, T 36.9?C, SaO2 100% on room air.?WBC 15.7, Hb 9.8, sodium 134, potassium 4.7, AST 16, ALT 12, ALP 116, total bilirubin 0.4, lactic acid 1.6, lipase 29, CRP 211.46, ESR 108. ?UA - negative nitrate, negative leukocyte esterase. ?CXR: 1. Clear lungs and pleural space. 2. Degenerative skeletal changes. ?CT abdomen/pelvis:?? 1.?Nonspecific mild gastric wall edema is suggested. This could represent gastritis.?? 2.?Sigmoid colon with mild thickening or edema. This could represent a mild colitis. No paracolic fatty stranding. No focal diverticulitis. No focal masslike features.?? 3.?Previous L4-L5 lumbar fusion. L4 and L5 vertebral bodies with abnormal attenuation with appearance of multiple lucent or lytic lesions. This is a new finding since 08/29/2021. This is concerning for osteomyelitis. A small focus of epidural gas is seen on the left side of the spinal canal at the upper aspect of L4. Some intraosseous gas is suggested along the left aspect of the L5 vertebral body.??Recommend clinical correlation. Paravertebral soft tissues are unremarkable.?? 4.?Prominent bilateral gonadal vein varices. No uterine or adnexal pathology.?? 5.?Diffuse mild bladder wall thickening. Can not exclude cystitis.??Recommend correlation with urinalysis.?? 6.?Fatty liver change and multiple hepatic low-attenuation foci consistent with cysts.?? 7.?Lung base COPD.?? 8.?Multiple small lung nodules in bilateral bases. For patients at low risk (minimal or absent history of smoking and of other known risk factors), no routine follow-up is indicated. For patients at high risk (history of smoking or of other known risk factors), consider optional CT Chest at 12 months. (Reference: Dev).?? 9.?Patient given cefotaxime??(2g)??and vancomycin (1250 mg). ?? Pending: Return phone call from [facility] for possible lateral transfer. ?? Anticipated disposition: Admission at this facility versus transfer. ?? Evaluation:?? I independently reviewed the prior provider's chart, nursing and triage note(s), vitals - and when available - labs, EKGs, and imaging studies.? 21:17?Discussed case with [facility], transfer center states that they are at capacity and unable to accept a transfer to their main facility or a lateral transfer to other facilities.? Chart review indicates per the MAR that cefotaxime was not given, 2 g cefepime ordered.? 21:30 (approx.) - discussed case with [facility] transfer center, anticipated callback regarding possible transfer.? 22:27?request repeat call back to [facility].? 22:42?Dr. Calhoun, spine surgery. Needs and MRI. ER to ER, MRI -> then disposition.? 22:47?[facility], [facility] physician coordinator confirmed capacity. 22:49?Conversation with ??Doretha, ER accepting.? COVID-19 test pending at time of note completion. ?? Disposition:??transferred by BLS to [facility] ER. ?? Impression:??back pain, concern for T4/5 infection. ?? 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 Time:??74??minutes were spent directly related to patient care exclusive of separately billed procedures. Electronically Signed on 07/22/22 10:52 PM Lele Newton MD * Lele Newton MD: PERFORM Event Display: ED Note Physician Authored Date: [id number] Repeat dose of cefepime and vancomycin given at 5:30 AM. ?? Patient remained in ER for extended period of time due to inability to find transportation to [facility]. ?? Patient care transferred to Dr. Sawant at 7 AM with anticipation of transport by ground ambulance at 9:30 AM. Electronically Signed on 07/23/22 06:37 AM Lele Newton MD * Deisy Sargent MD: PERFORM Event Display: ED Note Physician Authored Date: [id number] DEVENDRA MCCORMICK :1960 Age:62 years Sex:Female Visit Date:07/22/2022 Primary Care Physician: Eric May MD Basic Information Time Seen: Deisy Sargent MD / 07/22/2022 14:58 Chief Complaint Pt recovering from surgery of infected collarbone, took abx for 6 weeks and iron and noticed she was becoming constipated. Pt c/o vomitting up bile, abdominal cramps, and not being able to keep anything down. Last BM this am, but small. History Of Present Illness: 62-year-old female with history of osteoarthritis, rheumatoid arthritis??on methotrexate and Plaquenil,??MRSA pneumonia/bacteremia c/b abscess/infection of the clavicle,??who is status post prolonged??antibiotic treatment, presents to the emergency department complaining of several weeks of on and off??abdominal pain, bloating,??and intermittent constipation and diarrhea. The patient attributes her symptoms to large quantities of Abx along with iron pills for anemia and??opiates for pain. She has been trying to??use laxatives judiciously but feels that they??may have??made things worse. 3 days ago she had the runs. She stopped taking laxatives and??since yesterday she has had no bowel move ment.?Associated with nausea??and vomiting. In the past few weeks she would vomit about once a week, but frequency has increased and she vomited several times yesterday. ??Decreased p.o. intake.??No fevers or chills.?? No dysuria or hematuria. Pt reports months and months of sob with her pna, bacteremia, and clavicle infection which had improved but came back mildly??a few days ago. She has no cough, no chest pain, no clavicular pain. No dizziness/palpitations. Review of Systems: In addition to the ROS embedded in the HPI, the patient has no Const: fever, chills,?? CV: chest pain or palpitations Pulm: shortness of breath GI: n/v/c/d or abd pain Physical Exam Vitals & Measurements T:??36.9?C ??(Temporal Artery)?? HR:??94??(Peripheral)?? RR:??18?? BP:??148/82?? SpO2:??100%?? HT:??160.000??cm?? WT:??65.77??kg??(Estimated)?? Pain Score:??6?? General: A&Ox3, Calm, no apparent distress, well developed, pleasant and cooperative ?? HEENT: Head ATNC. Eyes: CONSTANCE. Extraocular Mobility: intact and symmetrical. Conjunctiva: non-injected, anicteric, no discharge. Oral Cavity: moist. Neck: no masses, no crepitus. Lymph Nodes: no cervical lymphadenopathy? Respiratory: resp effort - no dyspnea, speaking in full sentences. CTA bilaterally, no wheezing, august/crackles? CV: RRR, normal S1, normal S2, no murmurs, rubs or gallops ?? Abdomen : soft, slightly tender throughout,??slightly more??in the left upper quadrant, non-distended, no rebound or guarding, no hepatosplenomegaly, no Motley sign ?? Extremities: no le swelling, warm and well-perfused, no cyanosis, capillary refill <2 seconds? Skin: no rash, no lesions, no bruising? Neuro: normal tone, normal strength in all 4 extremities, sensation intact?? Medical Decision Makin-year-old female with history of osteoarthritis, rheumatoid arthritis??on methotrexate and Plaquenil,??MRSA pneumonia/bacteremia,??who is status post prolonged??antibiotic treatment after??infection of the clavicle (?), ??Presents to the emergency department complaining of several weeks of on andoff??abdominal pain, worse today.?? She is well nontoxic-appearing??with reassuring vital signs, normotensive,??slightly tachycardic attriage??but not on exam Abdomen is slightly tender throughout,??perhaps more in the??left upper quadrant Wide differential diagnosis including??constipation, gastroenteritis,??obstruction,??diverticulitis, atypical appendicitis??though unlikely,??unlikely gallbladder disease Procedure No Qualifying Data Reexamination/Reevaluation As they wereLabs with leukocytosis at 15.5, plts 845 likely inflammatory reaction, Hgb 9.8 at baseline, cr 1.5 from baseline of 1, UA wnl? Radiology read of CT with possible gastritis and colitis, and possible OM at L4 excerpt of CT revious L4-L5 lumbar fusion. L4 and L5 vertebral bodies with?? abnormal attenuation with appearance of multiple lucent or lytic?? lesions. This is a new finding since 08/29/2021. This is concerning?? for osteomyelitis. A small focus of epidural gas is seen on the left?? side of the spinal canal at the upper aspect of L4. Some intraosseous?? gas is suggested along the left aspect of the L5 vertebral body.?? Recommend clinical correlation. Paravertebral soft tissues are?? unremarkable.?? end of excerpt ?? On reevaluation and discussion of the results the patient tells me she has chronic back pain, maybea bit increased in the past few weeks. She had spinal surgery about 6 years ago due to back pain atthe time but she is unable to tell me exactly what. On exam she is slightly tender to deep palpation in the scare at the level of L4-L5 which appears intact without any redness or swelling/fluctuance. ?? With h/o osteomyelitis of the clavicle, it is very possible that the pt now has OM of the spine. Per history she had MRSA bacteremia so MRSA is suspected again. Blood cultures added, CRP, ESR added, Pt given additional fluids. She was given Vancomycin 20mg/kg and Cefepime 2g iv. The patient needs admission for??continued antibiotics, MRI,??spine consult ?? Our hospital is currently full??an MRI would not be unavailable until Sunday.?At 1800??I reached out to the [facility] transfer center??as she has received??all her infectious care??there.?? They declined transfer??as they are full??but will put me in touch??with a spine surgeon for a consult??and they will try lateral transfer to one of their??sister hospitals. IR can do needle biopsy if needed. ?? I spoke with Neurosurgery??Dr Foreman director of accreditation??from [facility] at 1900. They had no other recommendations besides MRI with and??without contrast. Most likely medical management but reconsult if collection in canal or if pt develops??neuro deficit. ?? Pt signed out to Dr Earl at 19:30 Assessment/Plan Ordered: Zofran, 4 mg = 2 mL, IV Push, Soln, every 6 hr, PRN nausea/vomiting, First Dose: 07/22/22 15:58:00 EST, STAT Blood Culture, Blood, Stat collect, ST - Stat, 07/22/22 17:57:00 EST, Once, Nurse collect, Print Label Blood Culture, Blood, Stat collect, ST - Stat, 07/22/22 17:57:00 EST, Once, Nurse collect, Print Label C-Reactive Protein High Sensitivity, Blood, Stat, 07/22/22 18:40:00 EST, Once, Nurse collect Sedimentation Rate (ESR), Blood, Stat, 07/22/22 18:40:00 EST, Once, Nurse collect Medication Reconciliation Unchanged albuterol (Proventil HFA 90 [...] and curettage???Procedure on foot Medication Administration Given 0.9% NaCl bolus, 500 mL, IV Bolus 0.9% NaCl bolus, 500 mL, IV Bolus vancomycin, 1250 mg, IV Piggyback Zofran, 4 mg, IV Push Allergies Biaxin clarithromycin halobetasol topical??(Skin rash) Social History Electronic Cigarette/Vaping Electronic Cigarette Use: Never. Sexual Other contraceptive use: Menopause. Tobacco Never tobacco user Tobacco Use:. Family History Hypertensive disorder: Father. Malignant tumor of breast: Mother and Grandmother (M). Osteoporosis: Mother. Lab Results CBC and Differential?? LATEST RESULTS?? HISTORICAL RESULTS?? WBC?? 07/22/22 15:41?? 15.7 ??High?? 05/15/22?? 8.9?? RBC?? 07/22/22 15:41?? 4.3?? 05/15/22?? 3.0 ??Low?? Hgb?? 07/22/22 15:41?? 9.8 ??Low?? 05/15/22?? 7.8 ??Low?? Hct?? 07/22/22 15:41?? 33.3 ??Low?? 05/15/22?? 26.5 ??Low?? MCV?? 07/22/22 15:41?? 77.1 ??Low?? 05/15/22?? 88.3?? MCH?? 07/22/22 15:41?? 22.7 ??Low?? 05/15/22?? 26.0?? MCHC?? 07/22/22 15:41?? 29.4 ??Low?? 05/15/22?? 29.4 ??Low?? RDW-CV?? 07/22/22 15:41?? 16.0?? 05/15/22?? 15.7?? Platelets?? 07/22/22 15:41?? 846 ??Critical?? 05/15/22?? 548 ??High?? Neutro Auto?? 07/22/22 15:41?? 77.1 ??High?? 05/08/22?? 66.2?? Lymph Auto?? 07/22/22 15:41?? 15.3 ??Low?? 05/08/22?? 19.4 ??Low?? [place] Auto?? 07/22/22 15:41?? 5.8?? 05/08/22?? 7.7?? Eos, Auto?? 07/22/22 15:41?? 0.9 ??Low?? 05/08/22?? 5.5?? Basophil Auto?? 07/22/22 15:41?? 0.5?? 05/08/22?? 0.7?? Imm Gran Auto?? 07/22/22 15:41?? 0.4?? 05/08/22?? 0.5?? Neutro Absolute?? 07/22/22 15:41?? 12.1?? 05/08/22?? 6.1?? RBC Morph?? 07/22/22 15:41?? Abnormal?? 04/24/22?? Abnormal?? Anisocyte?? 07/22/22 15:41?? Rare?? 04/24/22?? Small?? Microcyte?? 07/22/22 15:41?? Small? Plt Estimation?? 07/22/22 15:41?? Increased Abnormal? Routine Chemistry?? LATEST RESULTS?? HISTORICAL RESULTS?? Sodium Level?? 07/22/22 15:41?? 134 ??Low?? 05/18/22?? 135 ??Low?? Potassium Level?? 07/22/22 15:41?? 4.7?? 05/18/22?? 4.5?? Chloride Level?? 07/22/22 15:41?? 97 ??Low?? 05/18/22?? 102?? CO2?? 07/22/22 15:41?? 25?? 05/18/22?? 26?? Alk Phos?? 07/22/22 15:41?? 116?? 05/18/22?? 96?? AST?? 07/22/22 15:41?? 16?? 05/18/22?? 24?? ALT?? 07/22/22 15:41?? 12 ??Low?? 05/18/22?? 21?? BUN?? 07/22/22 15:41?? 17?? 05/18/22?? 17?? Glucose Level?? 07/22/22 15:41?? 102?? 05/18/22?? 86?? Creatinine Level?? 07/22/22 15:41?? 1.49 ??High?? 05/18/22?? 1.07 ??High?? eGFR AA?? 07/22/22 15:41?? 40 ??Low?? 05/18/22?? 59 ??Low?? eGFR Non-AA?? 07/22/22 15:41?? 40 ??Low?? 05/18/22?? 59 ??Low?? Calcium Level?? 07/22/22 15:41?? 9.7?? 05/18/22?? 9.0?? Protein Total?? 07/22/22 15:41?? 9.2 ??High?? 05/18/22?? 8.0?? Albumin Level?? 07/22/22 15:41?? 3.2 ??Low?? 05/18/22?? 2.9 ??Low?? Bilirubin Total?? 07/22/22 15:41?? 0.4?? 05/18/22?? 0.3?? Lactic Acid Lvl?? 07/22/22 15:41?? 1.6? Lipase Level?? 07/22/22 15:41?? 29? UA Macroscopic?? LATEST RESULTS?? UA Color?? 07/22/22 15:32?? Yellow?? UA Appear?? 07/22/22 15:32?? Clear?? UA Glucose?? 07/22/22 15:32?? Negative?? UA Bili?? 07/22/22 15:32?? Negative?? UA Ketones?? 07/22/22 15:32?? Negative?? UA Spec Grav?? 07/22/22 15:32?? 1.010?? UA Blood?? 07/22/22 15:32?? Negative?? UA pH?? 07/22/22 15:32?? 7.5?? UA Protein?? 07/22/22 15:32?? Negative?? UA Urobilinogen?? 07/22/22 15:32?? Normal?? UA Nitrite?? 07/22/22 15:32?? Negative?? UA Leuk Est?? 07/22/22 15:32?? Negative? Electronically Signed on 07/22/22 07:31 PM Deisy Sargent MD Emergency department Note * Riana Coats: PERFORM Event Display: ED Notes Authored Date: * Jyotsna Allen: PERFORM Event Display: ED Notes Authored Date: * Allen, Jyotsna: PERFORM Event Display: ED Notes Authored Date: [id number] Patient Care team information Personnel Name: Eric May MD Address: Address: [id number] [place] [address]
--- OUTSIDE RECORDS SUMMARY | 2022-10-13 11:26 | XMS_ITS | Continuity of Care Document ---
Author Name Unknown Organization [facility] Address [address] [place] [address] Care Team Providers Care Case Investigator Name Role Phone Eric May Primary Care Physician Encounter [facility] Date(s): 05/15/22 - 05/15/[address] [address] Discharge Disposition: Home or Self Care Attending Physician: Eric May MD Admitting Physician: Eric May MD Referring Physician: Eric May MD Allergies, Adverse Reactions, Alerts Substance Reaction [...] QID, # 28 cap, 0 Refill(s), [facility], 160, cm, 02/09/2213:58:00 EDT, Height/Length Dosing, [...] pain, # 4 cap, 0 Refill(s), [facility]acy: [facility], 160, cm, 02/09/22 13:58:00 EDT, Height/Length [...] Date: 02/23/22 Status: Ordered Problem List Condition Effective Dates Status Health Status Inform ant Alcohol withdrawal syndrome(Confirmed) 09/14/21 Active Generalized anxiety disorder(Confirmed) 09/13/21 Active Genital lichen sclerosus(Confirmed) 07/19/18 Active Right shoulder injury(Confirmed) Active Lumbosacral radiculopathy(Confirmed) Active Menopause present(Confirmed) Active Methicillin resistant Staphy lococcus aureus(Confirmed) 1 08/29/21 Active Pneumonia(Confirmed) 09/13/21 Active Pulmonary hypertension(Confirmed) 09/13/21 Active Rheumatoid arthritis(Confirmed) 09/10/21 Active Sepsis(Confirmed) Active Wernicke's disease(Confirmed) 09/13/21 Active 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 1MRSA in blood culture needs a negative swab to come off precautions Procedures Procedure Date Related Diagnosis Body Site Status Due 03/2026 1 04/03/21 Completed Liver Biopsy 2002 Completed Bunionectomy Completed Dilation and curettage Co mpleted Procedure on foot 2 Compl eted 1Pap Due - 03/2026 05/22 - [facility] - LSIL; 06/08/05 - LSIL; 10/23/05 - [facility]po - ASCUS/Neg - [place] EX[facility], 08/03/06 - ASCUS/POs; 10/16/06 - Colpo - LGSIL/Pos - [place] EXOCXV; 04/16/07 - [facility] - ASCUS/Neg; 12/10/07 - WNL/Neg; 09/18/08 - WNL/Neg; 02/02/12 - WNL/Neg; 02/01/17 - ASCUS/Neg; 02/05/18 - Neg/Neg; 04/04/21 - Neg/Neg 2Right foot - rheumatoid arthritis; left foot surgery 02/05/2009; left foot 11/05/2009 and 10/20/2010 Results Laboratory List Name Date [facility] 05/15/22 Basic Metabolic Panel (BMP) 05/15/22 C-Reactive Protein High Sensitivity (CRP High Sensitivity (CV Risk)) 05/15/22 CBC w/o Diff 05/15/22 [facility]isol [facility] 05/15/22 Sedimentation Rate (ESR) 05/15/22 Most recent to oldest [Reference Range]: 1 2 WBC [5.0-10.0 x10^3/mcL] 8.9 x10^3/mcL (05/15/22 8:34 AM) RBC [4.1-5.3 x10^6/mcL] 3.0 x10^6/mcL *LOW* (05/15/22 8:34 AM) BUN [7-18 mg/dL] 21 mg/dL *HI* (05/15/22 8:34 AM) Glucose Level [74-106 mg/dL] 92 mg/dL (05/15/22 8:34 AM) Potassium Level [3.5-5.1 mmol/L] 4.6 mmo l/L (05/15/22 8:34 AM) MCV [80.0-103.0 fL] 88.3 fL (05/15/22 8:34 AM) MCHC [31.0-35.0 g/dL] 29.4 g/dL *LOW* (05/15/22 8:34 AM) Sodium Level [136-145 mmol/L] 138 mmol/L (05/15/22 8:34 AM) Hct [37.0-47.0 %] 26.5 % *LOW* (05/15/22 8:34 AM) Calcium Level [8.5-10.1 mg/dL] 9.3 mg/dL (05/15/22 8:34 AM) MCH [26.0-32.0 pg] 26.0 pg (05/15/22 8:34 AM) Hgb [12.0-16.0 g/dL] 7.8 g/dL 1 *LOW* (05/15/22 8:34 AM) Platelets [130-450 x10^3/mcL] 548 x10^3/ mcL *HI* (05/15/22 8:34 AM) CO2 [21-32 mmol/L] 25 mmol/L (05/15/22 8:34 AM) eGFR Non-AA [>=60] 45 *LOW* (05/15/22 8:34 AM) eGFR AA [>=60] 45 *LOW* (05/15/22 8:34 AM) Chloride Level [98-107 mmol/L] 103 mmol/ L (05/15/22 8:34 AM) RDW-CV [11.7-17.0 %] 15.7 % (05/15/22 8:34 AM) CRP High Sens [0.00-3.00 mg/L] 127.75 mg /L *HI* (05/15/22 8:34 AM) Creatinine Level [0.55-1.02 mg/dL] 1.35 mg/dL *HI* (05/15/22 8:34 AM) [facility] [See Note mcg/dL] 28 mcg/dL 2 *NA* (05/15/22 9:57 AM) 11 mcg/dL 3 *NA* (05/15/22 8:34 AM) Anion Gap [8-16 mmol/L] 10 mmol/L (05/15/22 8:34 AM) ESR, Westergren [0-30 mm/hr] 140 mm/hr *HI* (05/15/22 8:34 AM) 1Result Comment: consistent with previous results/[facility] 2Result Comment: NOTE: Reference Ranges (from [facility]): Collected Before 10:00 AM: 4 - 23 ug/dL Collected After 5:00 PM: 2 - 14 ug/dL The results of this assay can be falsely elevated due to the consumption of Biotin. Test performed [place] [address] 3Result Comment: NOTE: Reference Ranges (from [facility]): Collected Before 10:00 AM: 4 - 23 ug/dL Collected After 5:00 PM: 2 - 14 ug/dL The results of this assay can be falsely elevated due to the consumption of Biotin. Test performed [place] [address] Vital Signs Most recent to oldest [Reference Range]: 1 Temperature Temporal Artery [36-38 Deg C ] 37.3 Deg C (05/15/22 8:03 AM) Peripheral Pulse Rate [60-100 bpm] 94 bp m (05/15/22 8:03 AM) Respiratory Rate [12-24 br/min] 18 br/mi n (05/15/22 8:03 AM) Blood Pressure [90-140/60-90 mmHg] 146/6 9mmHg *HI* (05/15/22 8:03 AM) Mean Arterial Pressure Cuff 84 mmHg (05/15/22 8:03 AM) Blood Pressure Location Right arm (05/15/22 8:03 AM) Blood Pressure Method Automatic (05/15/22 8:03 AM) Social History Social History Type Response Tobacco Never tobacco user T obacco Use:. Sex Female Patient Care team information Personnel Name: [facility] Address: Address: [id number] [place] [address]
--- OUTSIDE RECORDS SUMMARY | 2022-10-13 11:26 | XMS_ITS | Continuity of Care Document ---
Author Name Unknown Organization [facility] Address [address] [place] [address] Care Team Providers Care Brake Shoe Rebuilder Name Role Phone Eric May Primary Care Physician [facility] Date(s): 05/18/22 - 05/18/[address] [address] Discharge Disposition: Home or Self Care Attending Physician: Eric Quach MD Admitting Physician: Eric Quach MD Allergies, Adverse Reactions, Alerts Substance Reaction [...] QID, # 28 cap, 0 Refill(s), Pharmacy: [facility] #58, 160, cm, 02/09/2213:58:00 EDT, Height/Length Dosing, [...] pain, # 4 cap, 0 Refill(s), Pharmacy: [facility] #58, 160, cm, 02/09/22 13:58:00 EDT, Height/Length [...] LSIL; 10/23/05 - Colpo - ASCUS/Neg - [place] EXOCVX, 08/03/06 - ASCUS/POs; 10/16/06 - Colpo - LGSIL/Pos - [place] EXOCXV; 04/16/07 - [facility] - ASCUS/Neg; 12/10/07 - WNL/Neg; 09/18/08 - WNL/Neg; 02/02/12 - WNL/Neg; 02/01/17 - ASCUS/Neg; 02/05/18 - Neg/Neg; 04/04/21 - Neg/Neg 2Right foot - rheumatoid arthritis; left foot surgery 02/05/2009; left foot 11/05/2009 and 10/20/2010 Results Laboratory List Name Date Comprehensive Metabolic Panel 05/18/22 Creatine Kinase 05/18/22 Most recent to oldest [Reference Range]: 1 BUN [7-18 mg/dL] 17 mg/dL (05/18/22 1:10 PM) Glucose Level [74-106 mg/dL] 86 mg/dL (05/18/22 1:10 PM) Potassium Level [3.5-5.1 mmol/L] 4.5 mmo l/L (05/18/22 1:10 PM) AST [15-37 unit/L] 24 unit/L (05/18/22 1:10 PM) ALT [16-63 unit/L] 21 unit/L (05/18/22 1:10 PM) Sodium Level [136-145 mmol/L] 135 mmol/L *LOW* (05/18/22 1:10 PM) Calcium Level [8.5-10.1 mg/dL] 9.0 mg/dL (05/18/22 1:10 PM) Albumin Level [3.4-5.0 g/dL] 2.9 g/dL *LOW* (05/18/22 1:10 PM) Protein Total [6.4-8.2 g/dL] 8.0 g/dL (05/18/22 1:10 PM) Bilirubin Total [0.2-1.0 mg/dL] 0.3 mg/d L (05/18/22 1:10 PM) Alk Phos [46-146 unit/L] 96 unit/L (05/18/22 1:10 PM) CO2 [21-32 mmol/L] 26 mmol/L (05/18/22 1:10 PM) eGFR Non-AA [>=60] 59 *LOW* (05/18/22 1:10 PM) eGFR AA [>=60] 59 *LOW* (05/18/22 1:10 PM) Chloride Level [98-107 mmol/L] 102 mmol/ L (05/18/22 1:10 PM) Creatinine Level [0.55-1.02 mg/dL] 1.07 mg/dL *HI* (05/18/22 1:10 PM) Anion Gap [8-16 mmol/L] 7 mmol/L *LOW* (05/18/22 1:10 PM) CK [26-192 unit/L] 176 unit/L (05/18/22 1:10 PM) Social History Social History Type Response Tobacco Never tobacco user T obacco Use:. Sex Female Patient Care team information Personnel Name: [facility] Address: Address: [address] [address]- [place]
--- OUTSIDE RECORDS SUMMARY | 2022-10-13 11:26 | XMS_ITS | Continuity of Care Document ---
Author Name Unknown Organization [facility] Address [address] [place] [address] Care Team Providers Care Algology Teacher Name Role Phone Primeau IPHCEric Primary Care Physician [facility] Date(s): 09/06/22 - 09/06/[address] [address] Discharge Disposition: Home or Self Care Attending Physician: Christos Mon MD Admitting Physician: Christos Mon MD Referring Physician: Christos Mon MD Allergies, Adverse Reactions, Alerts Substance Reaction Severity Status clarithromycin Unknown Active halobetasol topical Skin rash Unknown Active Biaxin Unknown Active Assessment and Plan Future Scheduled Tests Radiology* MG Mammo Screening Bilateral w/ Beriln 03/13/22 Immunizations Given and Recorded Vaccine Date [...] QID, # 56 tab, 0 Refill(s), Pharmacy: [facility] #58, 157, cm, 08/24/22 18:58:00 EST, Height/Length [...] pain, # 4 cap, 0 Refill(s), Pharmacy: [facility] #58, 160, cm, 02/09/22 13:58:00 EDT, Height/Length Dosing, 68, kg, 02/09/22 13:58:00 EDT, Weight Dosing Start Date: 02/09/22 Status: Ordered Probiotic Blend 2 million cell-50 mg capsule Probiotic Blend 2 million cell-50 mg capsule, 1 cap, Oral, Daily Start Date: 02/23/22 Status: Ordered Protonix 40 mg oral delayed release tablet 40 mg = 1 tab, Oral, BID, # 60 tab, 0 Refill(s), Pharmacy: [facility] #58, 157, cm, 08/24/22 18:58:00 EST, Height/Length [...] LSIL; 10/23/05 - Colpo - ASCUS/Neg - [place] EXOCVX, 08/03/06 - ASCUS/POs; 10/16/06 - Colpo - LGSIL/Pos - [place] EXOCXV; 04/16/07 - Colpo - ASCUS/Neg; 12/10/07 - WNL/Neg; 09/18/08 - WNL/Neg; 02/02/12 - WNL/Neg; 02/01/17 - ASCUS/Neg; 02/05/18 - Neg/Neg; 04/04/21 - Neg/Neg 2Right foot - rheumatoid arthritis; left foot surgery 02/05/2009; left foot 11/05/2009 and 10/20/2010 Results Laboratory List Name Date .Morphology ([facility]) 1/18/23 Automated Diff 09/06/22 BUN 09/06/22 C-Reactive Protein High Sensitivity 09/06 CBC w/ Diff 09/06/22 Creatinine 09/06/22 Sedimentation Rate (ESR) 09/06/22 Vancomycin Lvl Trough 09/06/22 Most recent to oldest [Reference Range]: 1 WBC [5.0-10.0 x10^3/mcL] 9.5 x10^3/mcL (09/06/22 8:16 PM) RBC [4.1-5.3 x10^6/mcL] 3.8 x10^6/mcL *LOW* (09/06/22 8:16 PM) Neutro Auto [40.0-75.0 %] 75.2 % *HI* (09/06/22 8:16 PM) Lymph Auto [20.0-50.0 %] 13.3 % *LOW* (09/06/22 8:16 PM) Valley Auto [2.0-15.0 %] 7.0 % (09/06/22 8:16 PM) Basophil Auto [0.0-1.0 %] 1.1 % *HI* (09/06/22 8:16 PM) BUN [7-18 mg/dL] 8 mg/dL (09/06/22 8:16 PM) Vanco Tr [5.0-10.0 ug/mL] 15.2 ug/mL *HI* (09/06/22 8:16 PM) MCV [80.0-96.0] 86.4 (09/06/22 8:16 PM) RBC Morph Abnormal (09/06/22 8:16 PM) MCHC [31.0-35.0 g/dL] 29.9 g/dL *LOW* (09/06/22 8:16 PM) Hct [37.0-47.0 %] 32.4 % *LOW* (09/06/22 8:16 PM) MCH [26.0-32.0 pg] 25.9 pg *LOW* (09/06/22 8:16 PM) Neutro Absolute 7.1 x10^3/mcL *NA* (09/06/22 8:16 PM) Hgb [12.0-16.0 g/dL] 9.7 g/dL *LOW* (09/06/22 8:16 PM) Platelets [130-450 x10^3/mcL] 434 x10^3/ mcL (09/06/22 8:16 PM) eGFR Non-AA [>=60] 67 (09/06/22 8:16 PM) eGFR AA [>=60] 67 (09/06/22 8:16 PM) RDW-CV [11.7-17.0 %] 18.7 % *HI* (09/06/22 8:16 PM) Ovalocytes Small (09/06/22 8:16 PM) Imm Gran Auto [0.0-0.9 %] 0.3 % (09/06/22 8:16 PM) CRP High Sens [0.00-3.00 mg/L] 8.81 mg/L *HI* (09/06/22 8:16 PM) Anisocyte Small (09/06/22 8:16 PM) Creatinine Level [0.55-1.02 mg/dL] 0.96 mg/dL (09/06/22 8:16 PM) Eos, Auto [1.0-6.0 %] 3.1 % (09/06/22 8:16 PM) ESR, Westergren [0-30 mm/hr] 32 mm/hr *HI* (09/06/22 8:16 PM) Social History Social History Type Response Tobacco Never tobacco user T obacco Use:. Sex Female Patient Care team information Personnel Name: [facility], Eric Tran MD Address: Address: [id number] [place] [address]
[2022-10-13 18:50] LABS: Abs Immature Grans 0.01 10^3/uL (0.0-0.06); Absolute Basophil Count 0.06 10^3/uL (0.0-0.2); Absolute Eosinophil Count 0.29 10^3/uL (0.0-0.7); Absolute Lymphocyte Count 1.42 10^3/uL (1.2-3.4); Absolute Monocyte Count 0.54 10^3/uL (0.1-0.8); Absolute Neutrophil Count 3.15 10^3/uL (1.2-6.7); Basophils % 1.1; Eosinophils % 5.3; HCT 36.3 % (36.0-46.0); HGB 10.7 g/dL (11.2-15.7); Immature Grans % 0.2; MCH 24.4 pg (27.0-33.0); MCHC 29.5 % (32.0-36.0); MCV 83 fL (80-95); MPV 9.9 fL (8.0-11.0); Monocytes % 9.9; Neutrophils % 57.5; Platelet Count 442 10^3/uL (130-400); RBC 4.39 10^6/uL (3.93-5.22); RDW 16.6 % (11.7-14.6); RDW-SD 50.4 fL; WBC 5.47 10^3/uL (4.4-10.8)
[2022-10-13 18:58] LABS: ESR 39 mm/hr (0-30)
[2022-10-13 19:07] LABS: BUN 21 mg/dL (7-18); C-Reactive Protein 0.57 mg/dL (0.0-0.3); Estimated GFR 64.09 (mL/min/1.73m2)
== END 2022-10-13 11:20 | disposition home or self-care (01) ==
LOC: LBN 11:19
PROVIDERS: PCP Internal Medicine; Visit Provider Internal Medicine Infectious Disease
DX: M46.26 Osteomyelitis of vertebra, lumbar region (principal); Z79.899 Other long term (current) drug therapy
CPT/HCPCS: 84520; 85652; 82565; 85025; 86140

== ENCOUNTER 2022-10-27 11:18 | Outpatient (REF) | payer MEDICARE, SELFPAY ==
[2022-10-27 19:28] LABS: Abs Immature Grans 0.03 10^3/uL (0.0-0.06); Absolute Basophil Count 0.07 10^3/uL (0.0-0.2); Absolute Eosinophil Count 2.35 10^3/uL (0.0-0.7); Absolute Lymphocyte Count 1.65 10^3/uL (1.2-3.4); Absolute Monocyte Count 0.55 10^3/uL (0.1-0.8); Absolute Neutrophil Count 3.12 10^3/uL (1.2-6.7); Basophils % 0.9; C-Reactive Protein 1.03 mg/dL (0.0-0.3); Eosinophils % 30.2; HGB 10.4 g/dL (11.2-15.7); Immature Grans % 0.4; Lymphocytes % 21.2; MCH 24.1 pg (27.0-33.0); MCHC 29.7 % (32.0-36.0); MCV 81 fL (80-95); MPV 10.4 fL (8.0-11.0); Monocytes % 7.1; Neutrophils % 40.2; Platelet Count 393 10^3/uL (130-400); RBC 4.32 10^6/uL (3.93-5.22); RDW 16.2 % (11.7-14.6); RDW-SD 47.8 fL; WBC 7.77 10^3/uL (4.4-10.8)
[2022-10-27 19:30] LABS: ESR 52 mm/hr (0-30)
[2022-10-27 19:49] LABS: Diff Comment Agrees w/ Instrument; RBC Morphology Normal
== END 2022-10-27 11:19 | disposition home or self-care (01) ==
LOC: NCHCN 11:18
PROVIDERS: PCP Internal Medicine; Visit Provider Internal Medicine
DX: M06.9 Rheumatoid arthritis, unspecified (principal)
CPT/HCPCS: 85652; 85025; 86140

== ENCOUNTER 2022-11-22 11:31 | Outpatient (REF) | payer MEDICARE, SELFPAY ==
[2022-11-22 20:30] LABS: ESR 31 mm/hr (0-30)
[2022-11-22 20:32] LABS: Abs Immature Grans 0.01 10^3/uL (0.0-0.06); Absolute Basophil Count 0.05 10^3/uL (0.0-0.2); Absolute Lymphocyte Count 1.33 10^3/uL (1.2-3.4); Absolute Monocyte Count 0.52 10^3/uL (0.1-0.8); Absolute Neutrophil Count 3.77 10^3/uL (1.2-6.7); Basophils % 0.8; Eosinophils % 6.6; HCT 34.7 % (36.0-46.0); HGB 10.2 g/dL (11.2-15.7); Immature Grans % 0.2; Lymphocytes % 21.9; MCH 23.4 pg (27.0-33.0); MCHC 29.4 % (32.0-36.0); MCV 80 fL (80-95); MPV 10.8 fL (8.0-11.0); Monocytes % 8.6; Neutrophils % 61.9; Platelet Count 362 10^3/uL (130-400); RBC 4.36 10^6/uL (3.93-5.22); RDW 16.5 % (11.7-14.6); RDW-SD 47.7 fL; WBC 6.08 10^3/uL (4.4-10.8)
[2022-11-22 20:45] LABS: C-Reactive Protein 0.43 mg/dL (0.0-0.3)
== END 2022-11-22 11:32 | disposition home or self-care (01) ==
LOC: NCHCN 11:31
PROVIDERS: PCP Internal Medicine; Visit Provider Internal Medicine
DX: M00.9 Pyogenic arthritis, unspecified (principal); D64.9 Anemia, unspecified
CPT/HCPCS: 85652; 85025; 86140

== ENCOUNTER 2022-12-05 18:31 | Outpatient (REF) | payer MEDICARE, SELFPAY ==
[2022-12-05 19:55] LABS: Abs Immature Grans 0.02 10^3/uL (0.0-0.06); Absolute Basophil Count 0.06 10^3/uL (0.0-0.2); Absolute Eosinophil Count 0.26 10^3/uL (0.0-0.7); Absolute Lymphocyte Count 1.27 10^3/uL (1.2-3.4); Absolute Neutrophil Count 6.24 10^3/uL (1.2-6.7); Basophils % 0.7; Eosinophils % 3.1; HCT 36.9 % (36.0-46.0); HGB 11.1 g/dL (11.2-15.7); Immature Grans % 0.2; MCH 23.6 pg (27.0-33.0); MCHC 30.1 % (32.0-36.0); MCV 79 fL (80-95); Monocytes % 7.1; Neutrophils % 73.9; Platelet Count 397 10^3/uL (130-400); RDW 16.7 % (11.7-14.6); RDW-SD 47.6 fL; WBC 8.45 10^3/uL (4.4-10.8)
[2022-12-05 19:58] LABS: ESR 70 mm/hr (0-30)
[2022-12-05 20:16] LABS: C-Reactive Protein 1.13 mg/dL (0.0-0.3)
== END 2022-12-05 18:32 | disposition home or self-care (01) ==
LOC: NCHCN 18:31
PROVIDERS: PCP Internal Medicine; Visit Provider Internal Medicine
DX: M86.68 Other chronic osteomyelitis, other site (principal); M85.88 Other specified disorders of bone density and structure, other site; M05.9 Rheumatoid arthritis with rheumatoid factor, unspecified
CPT/HCPCS: 85652; 85025; 86140

== ENCOUNTER 2023-01-09 18:43 | Outpatient (REF) | payer MEDICARE, SELFPAY ==
[2023-01-09 19:08] LABS: Abs Immature Grans 0.02 10^3/uL (0.0-0.06); Absolute Basophil Count 0.06 10^3/uL (0.0-0.2); Absolute Lymphocyte Count 1.63 10^3/uL (1.2-3.4); Absolute Neutrophil Count 5.22 10^3/uL (1.2-6.7); Basophils % 0.8; Eosinophils % 2.6; HCT 35.9 % (36.0-46.0); HGB 11.1 g/dL (11.2-15.7); Immature Grans % 0.3; Lymphocytes % 21.4; MCH 23.7 pg (27.0-33.0); MCHC 30.9 % (32.0-36.0); MCV 77 fL (80-95); MPV 10.7 fL (8.0-11.0); Monocytes % 6.6; Neutrophils % 68.3; Platelet Count 449 10^3/uL (130-400); RBC 4.69 10^6/uL (3.93-5.22); RDW-SD 46.7 fL; WBC 7.63 10^3/uL (4.4-10.8)
[2023-01-11 08:01] LABS: ESR 72 mm/hr (0-30)
== END 2023-01-09 18:44 | disposition home or self-care (01) ==
LOC: NCHCN 18:43
PROVIDERS: PCP Internal Medicine; Visit Provider Internal Medicine
DX: G06.2 Extradural and subdural abscess, unspecified (principal); R70.0 Elevated erythrocyte sedimentation rate
CPT/HCPCS: 85652; 85025

== ENCOUNTER 2023-02-22 16:06 | Outpatient (REF) | payer MEDICARE, SELFPAY ==
[2023-02-22 20:07] LABS: HCT 36.3 % (36.0-46.0); HGB 10.8 g/dL (11.2-15.7); MCH 23.5 pg (27.0-33.0); MCHC 29.8 % (32.0-36.0); MCV 79 fL (80-95); MPV 10.8 fL (8.0-11.0); Platelet Count 448 10^3/uL (130-400); RDW-SD 48.9 fL; WBC 9.91 10^3/uL (4.4-10.8)
[2023-02-22 20:20] LABS: C-Reactive Protein 0.55 mg/dL (0.0-0.3)
[2023-02-22 20:40] LABS: ESR 42 mm/hr (0-30)
== END 2023-02-22 16:07 | disposition home or self-care (01) ==
LOC: NCHCN 16:06
PROVIDERS: PCP Internal Medicine; Visit Provider Internal Medicine
DX: M06.9 Rheumatoid arthritis, unspecified (principal); M85.80 Other specified disorders of bone density and structure, unspecified site
CPT/HCPCS: 85027; 85652; 86140

== ENCOUNTER 2023-04-20 11:27 | Outpatient (REF) | payer MEDICARE, SELFPAY ==
[2023-04-20 19:09] LABS: Abs Immature Grans 0.02 10^3/uL (0.0-0.06); Absolute Basophil Count 0.07 10^3/uL (0.0-0.2); Absolute Eosinophil Count 0.27 10^3/uL (0.0-0.7); Absolute Lymphocyte Count 1.68 10^3/uL (1.2-3.4); Absolute Monocyte Count 0.58 10^3/uL (0.1-0.8); Basophils % 1.2; Eosinophils % 4.6; HCT 37.2 % (36.0-46.0); HGB 10.8 g/dL (11.2-15.7); Immature Grans % 0.3; Lymphocytes % 28.9; MCH 23.1 pg (27.0-33.0); MCV 80 fL (80-95); MPV 10.3 fL (8.0-11.0); Platelet Count 449 10^3/uL (130-400); RBC 4.68 10^6/uL (3.93-5.22); RDW 16.2 % (11.7-14.6); RDW-SD 45.9 fL; WBC 5.82 10^3/uL (4.4-10.8)
[2023-04-20 19:15] LABS: ESR 43 mm/hr (0-30)
[2023-04-20 19:24] LABS: C-Reactive Protein 1.39 mg/dL (0.0-0.3)
== END 2023-04-20 11:28 | disposition home or self-care (01) ==
LOC: NCHCN 11:27
PROVIDERS: PCP Internal Medicine; Visit Provider Internal Medicine
DX: M86.68 Other chronic osteomyelitis, other site (principal); R70.0 Elevated erythrocyte sedimentation rate; R79.82 Elevated C-reactive protein (CRP); D64.9 Anemia, unspecified
CPT/HCPCS: 85652; 85025; 86140

== ENCOUNTER 2023-06-13 11:49 | Outpatient (REF) | payer MEDICARE, SELFPAY ==
[2023-06-13 20:51] LABS: ESR 28 mm/hr (0-30); HCT 34.2 % (36.0-46.0); HGB 10.3 g/dL (11.2-15.7); MCH 24.2 pg (27.0-33.0); MCHC 30.1 % (32.0-36.0); MCV 81 fL (80-95); MPV 11.1 fL (8.0-11.0); Platelet Count 411 10^3/uL (130-400); RBC 4.25 10^6/uL (3.93-5.22); RDW 16.3 % (11.7-14.6); RDW-SD 47.9 fL; WBC 7.91 10^3/uL (4.4-10.8)
[2023-06-14 20:47] LABS: CRP, High Sensitivity >15.00 mg/L (See Note)
== END 2023-06-13 11:50 | disposition home or self-care (01) ==
LOC: NCHCN 11:49
PROVIDERS: PCP Internal Medicine; Visit Provider Internal Medicine
DX: M06.9 Rheumatoid arthritis, unspecified (principal); M00.9 Pyogenic arthritis, unspecified
CPT/HCPCS: 85027; 85652; 86141

== ENCOUNTER 2023-09-10 16:55 | Outpatient (REF) | payer MEDICARE, SELFPAY ==
[2023-09-10 20:28] LABS: Abs Immature Grans 0.01 10^3/uL (0.0-0.06); Absolute Basophil Count 0.05 10^3/uL (0.0-0.2); Absolute Eosinophil Count 0.17 10^3/uL (0.0-0.7); Absolute Lymphocyte Count 1.06 10^3/uL (1.2-3.4); Absolute Monocyte Count 0.85 10^3/uL (0.1-0.8); Absolute Neutrophil Count 4.15 10^3/uL (1.2-6.7); Basophils % 0.8; Eosinophils % 2.7; HCT 36.2 % (36.0-46.0); HGB 10.8 g/dL (11.2-15.7); Immature Grans % 0.2; Lymphocytes % 16.9; MCH 24.7 pg (27.0-33.0); MCHC 29.8 % (32.0-36.0); MCV 83 fL (80-95); MPV 10.8 fL (8.0-11.0); Monocytes % 13.5; Neutrophils % 65.9; Platelet Count 347 10^3/uL (130-400); RBC 4.37 10^6/uL (3.93-5.22); RDW 18.2 % (11.7-14.6); RDW-SD 53.1 fL; WBC 6.29 10^3/uL (4.4-10.8)
[2023-09-10 20:48] LABS: ALT 30 U/L (14-59); AST 38 U/L (15-37); Albumin 3.9 g/dL (3.4-5.0); Alkaline Phosphatase 85 U/L (46-116); Anion Gap 5.9 mmol/L (3-11); BUN 14 mg/dL (7-18); Bilirubin, Total 0.4 mg/dL (0.2-1.0); CO2 28.1 mmol/L (21.0-32.0); CREATININE 0.8 mg/dL (0.55-1.02); Calcium 9.4 mg/dL (8.5-10.1); Chloride 104 mmol/L (98-107); Estimated GFR 83.26 (mL/min/1.73m2); Glucose 99 mg/dL (74-106); Potassium 4.3 mmol/L (3.5-5.1); Sodium 138 mmol/L (136-145); Total Protein 7.4 g/dL (6.4-8.2)
== END 2023-09-10 16:56 | disposition home or self-care (01) ==
LOC: NCHCN 16:55
PROVIDERS: Internal Medicine; PCP Internal Medicine; Visit Provider Internal Medicine
DX: M05.79 Rheumatoid arthritis with rheumatoid factor of multiple sites without organ or systems involvement (principal); Z79.899 Other long term (current) drug therapy
CPT/HCPCS: 80053; 85025

== ENCOUNTER 2023-11-01 19:41 | Outpatient (REF) | payer MEDICARE, SELFPAY ==
[2023-11-01 19:04] LABS: Bilirubin Negative (Negative); Blood Negative (Negative); Clarity Clear (Clear); Glucose Negative (Negative); Ketones Negative (Negative); Leukocyte Esterase Negative (Negative); Nitrite Negative (Negative); Specific Gravity <= 1.005 (1.005-1.025); Urobilinogen 0.2 mg/dL (Up to 0.2); pH 5.5 (5-8)
== END 2023-11-01 19:42 | disposition home or self-care (01) ==
LOC: NCHCN 19:41
PROVIDERS: PCP Internal Medicine; Visit Provider Nurse Practitioner Family
DX: R30.0 Dysuria (principal)
CPT/HCPCS: 81003

== ENCOUNTER 2023-12-19 21:32 | Outpatient (REF) | payer MEDICARE, SELFPAY ==
[2023-12-19 22:16] LABS: Abs Immature Grans 0.03 10^3/uL (0.0-0.06); Absolute Basophil Count 0.07 10^3/uL (0.0-0.2); Absolute Eosinophil Count 0.19 10^3/uL (0.0-0.7); Absolute Lymphocyte Count 1.71 10^3/uL (1.2-3.4); Absolute Monocyte Count 0.69 10^3/uL (0.1-0.8); Absolute Neutrophil Count 5.16 10^3/uL (1.2-6.7); Basophils % 0.9 %; Eosinophils % 2.4 %; HCT 36.2 % (36.0-46.0); HGB 11.3 g/dL (11.2-15.7); Immature Grans % 0.4 %; Lymphocytes % 21.8 %; MCH 26.9 pg (27.0-33.0); MCHC 31.2 % (32.0-36.0); MCV 86 fL (80-95); MPV 11.6 fL (8.0-11.0); Monocytes % 8.8 %; Neutrophils % 65.7 %; Platelet Count 416 10^3/uL (130-400); RDW 19.1 % (11.7-14.6); RDW-SD 58.9 fL; WBC 7.85 10^3/uL (4.4-10.8)
== END 2023-12-19 21:33 | disposition home or self-care (01) ==
LOC: LBN 21:32
PROVIDERS: PCP Internal Medicine; Visit Provider Internal Medicine
DX: M05.79 Rheumatoid arthritis with rheumatoid factor of multiple sites without organ or systems involvement (principal); Z79.899 Other long term (current) drug therapy
CPT/HCPCS: 85025

== ENCOUNTER 2024-03-11 19:03 | Outpatient (REF) | payer MEDICARE, SELFPAY ==
[2024-03-11 21:08] LABS: Abs Immature Grans 0.01 10^3/uL (0.0-0.06); Absolute Basophil Count 0.06 10^3/uL (0.0-0.2); Absolute Eosinophil Count 0.25 10^3/uL (0.0-0.7); Absolute Lymphocyte Count 1.51 10^3/uL (1.2-3.4); Absolute Monocyte Count 0.46 10^3/uL (0.1-0.8); Absolute Neutrophil Count 1.97 10^3/uL (1.2-6.7); Basophils % 1.4 %; Eosinophils % 5.9 %; HCT 33.8 % (36.0-46.0); HGB 10.1 g/dL (11.2-15.7); Immature Grans % 0.2 %; Lymphocytes % 35.4 %; MCH 25.7 pg (27.0-33.0); MCHC 29.9 % (32.0-36.0); MCV 86 fL (80-95); MPV 11.2 fL (8.0-11.0); Monocytes % 10.8 %; Neutrophils % 46.3 %; Platelet Count 412 10^3/uL (130-400); RBC 3.93 10^6/uL (3.93-5.22); RDW 17.6 % (11.7-14.6); RDW-SD 54.5 fL; WBC 4.26 10^3/uL (4.4-10.8)
[2024-03-11 21:28] LABS: C-Reactive Protein < 0.50 mg/dL (<or=0.5)
[2024-03-11 21:29] LABS: ALT 42 U/L (14-59); AST 41 U/L (15-37); Albumin 3.7 g/dL (3.4-5.0); Alkaline Phosphatase 81 U/L (46-116); Anion Gap 9.9 mmol/L (3-11); BUN 21 mg/dL (7-18); Bilirubin, Total 0.37 mg/dL (0.2-1.0); CO2 24.1 mmol/L (21.0-32.0); CREATININE 1.3 mg/dL (0.55-1.02); Calcium 9.4 mg/dL (8.5-10.1); Chloride 106 mmol/L (98-107); Estimated GFR 46.49 (mL/min/1.73m2); Glucose 84 mg/dL (74-106); Potassium 4.7 mmol/L (3.5-5.1); Sodium 140 mmol/L (136-145); Total Protein 7.3 g/dL (6.4-8.2)
== END 2024-03-11 19:04 | disposition home or self-care (01) ==
LOC: NCHCN 19:03
PROVIDERS: Internal Medicine; PCP Internal Medicine; Visit Provider Internal Medicine
DX: M05.79 Rheumatoid arthritis with rheumatoid factor of multiple sites without organ or systems involvement (principal); M00.9 Pyogenic arthritis, unspecified; Z79.899 Other long term (current) drug therapy
CPT/HCPCS: 80053; 85025; 86140

== ENCOUNTER 2024-03-31 22:35 | Outpatient (REF) | payer MEDICARE, SELFPAY | END 2024-03-31 22:36 | disposition home or self-care (01) | LOC: NCHCN 22:35 | PROVIDERS: PCP Internal Medicine; Visit Provider Internal Medicine | DX: M00.842 Arthritis due to other bacteria, left hand (principal) | CPT/HCPCS: 87077; 87070; 87186; 87205 ==

== ENCOUNTER 2024-04-24 11:52 | Outpatient (REF) | payer MEDICARE, SELFPAY ==
[2024-04-24 19:40] LABS: ESR 20 mm/hr (0-30); HGB 10.3 g/dL (11.2-15.7); MCH 25.9 pg (27.0-33.0); MCHC 30.3 % (32.0-36.0); MCV 85 fL (80-95); MPV 10.6 fL (8.0-11.0); Platelet Count 339 10^3/uL (130-400); RBC 3.98 10^6/uL (3.93-5.22); RDW 18.9 % (11.7-14.6); RDW-SD 57.8 fL; WBC 6.28 10^3/uL (4.4-10.8)
[2024-04-24 19:50] LABS: C-Reactive Protein 0.67 mg/dL (<or=0.5)
== END 2024-04-24 11:53 | disposition home or self-care (01) ==
LOC: NCHCN 11:52
PROVIDERS: PCP Internal Medicine; Visit Provider Internal Medicine
DX: Z86.14 Personal history of Methicillin resistant Staphylococcus aureus infection (principal)
CPT/HCPCS: 85027; 85652; 86140

== ENCOUNTER 2024-05-26 15:59 | Outpatient (REF) | payer MEDICARE, SELFPAY ==
[2024-05-26 19:20] LABS: HGB 11.1 g/dL (11.2-15.7); MCH 26.2 pg (27.0-33.0); MCHC 30.8 % (32.0-36.0); MCV 85 fL (80-95); MPV 11.2 fL (8.0-11.0); Platelet Count 381 10^3/uL (130-400); RBC 4.23 10^6/uL (3.93-5.22); RDW 18.4 % (11.7-14.6); RDW-SD 55.8 fL; WBC 8.23 10^3/uL (4.4-10.8)
[2024-05-26 19:39] LABS: Iron 154 ug/dL (50-170); Total Iron Binding Capacity 371 ug/dL (250-450); Transferrin Sat 42 % (15-50)
[2024-05-26 21:01] LABS: Ferritin 21 ng/mL (8-252)
[2024-05-26 21:10] LABS: C-Reactive Protein 0.59 mg/dL (<or=0.5)
== END 2024-05-26 16:00 | disposition home or self-care (01) ==
LOC: NCHCN 15:59
PROVIDERS: PCP Internal Medicine; Visit Provider Internal Medicine
DX: D64.9 Anemia, unspecified (principal)
CPT/HCPCS: 85027; 82728; 83540; 83550; 86140

== ENCOUNTER 2024-09-08 15:30 | Outpatient (REF) | payer MEDICARE, SELFPAY ==
[2024-09-08 18:48] LABS: ESR 71 mm/hr (0-30)
[2024-09-08 18:49] LABS: HCT 35.2 % (36.0-46.0); HGB 10.6 g/dL (11.2-15.7); MCH 24.9 pg (27.0-33.0); MCHC 30.1 % (32.0-36.0); MCV 83 fL (80-95); MPV 11.1 fL (8.0-11.0); Platelet Count 354 10^3/uL (130-400); RBC 4.25 10^6/uL (3.93-5.22); RDW 18.6 % (11.7-14.6); RDW-SD 54.1 fL; WBC 7.08 10^3/uL (4.4-10.8)
== END 2024-09-08 15:31 | disposition home or self-care (01) ==
LOC: NCHCN 15:30
PROVIDERS: PCP Internal Medicine; Visit Provider Internal Medicine
DX: M06.9 Rheumatoid arthritis, unspecified (principal)
CPT/HCPCS: 85027; 85652; 86140

== ENCOUNTER 2024-10-30 18:32 | Outpatient (REF) | payer MEDICARE, SELFPAY ==
[2024-10-30 19:36] LABS: ESR 39 mm/hr (0-30)
[2024-10-30 19:37] LABS: HCT 35.4 % (36.0-46.0); HGB 10.7 g/dL (11.2-15.7); MCH 25.5 pg (27.0-33.0); MCHC 30.2 % (32.0-36.0); MCV 85 fL (80-95); MPV 10.3 fL (8.0-11.0); Platelet Count 456 10^3/uL (130-400); RBC 4.19 10^6/uL (3.93-5.22); RDW-SD 65.1 fL; WBC 6.62 10^3/uL (4.4-10.8)
[2024-10-30 20:00] LABS: ALT 20 U/L (14-59); AST 29 U/L (15-37); Albumin 3.7 g/dL (3.4-5.0); Alkaline Phosphatase 104 U/L (46-116); Anion Gap 12.2 mmol/L (3-11); BUN 28 mg/dL (7-18); Bilirubin, Total 0.4 mg/dL (0.2-1.0); CO2 22.8 mmol/L (21.0-32.0); CREATININE 1.5 mg/dL (0.55-1.02); Calcium 9.2 mg/dL (8.5-10.1); Chloride 107 mmol/L (98-107); Estimated GFR 38.91 (mL/min/1.73m2); Glucose 117 mg/dL (74-106); Potassium 4.6 mmol/L (3.5-5.1); Sodium 142 mmol/L (136-145); Total Protein 7.4 g/dL (6.4-8.2)
[2024-10-30 20:04] LABS: RDW 21.7 % (11.7-14.6)
[2024-10-30 20:26] LABS: C-Reactive Protein 0.77 mg/dL (<or=0.5)
== END 2024-10-30 18:33 | disposition home or self-care (01) ==
LOC: NCHCN 18:32
PROVIDERS: PCP Internal Medicine; Visit Provider Internal Medicine
DX: M86.60 Other chronic osteomyelitis, unspecified site (principal); Z79.899 Other long term (current) drug therapy
CPT/HCPCS: 80053; 85027; 85652; 86140

== ENCOUNTER 2024-11-26 21:02 | Outpatient (REF) | payer MEDICARE, SELFPAY ==
[2024-11-26 21:41] LABS: Bilirubin Negative (Negative); Blood Negative (Negative); Clarity Clear (Clear); Glucose Negative (Negative); Ketones Negative (Negative); Leukocyte Esterase Negative (Negative); Nitrite Negative (Negative); Specific Gravity <= 1.005 (1.005-1.025); Urobilinogen 0.2 mg/dL (Up to 0.2); pH 5.5 (5-8)
[2024-11-26 22:24] LABS: COMMENT (LAB VIEW ONLY) 8.27 mg/dL; PROTEIN < 6.0 mg/dL
== END 2024-11-26 21:03 | disposition home or self-care (01) ==
LOC: NCHCN 21:02
PROVIDERS: PCP Internal Medicine; Visit Provider Internal Medicine
DX: N18.2 Chronic kidney disease, stage 2 (mild) (principal)
CPT/HCPCS: 81003; 82565; 84156

== ENCOUNTER 2025-01-29 17:52 | Outpatient (REF) | payer MEDICARE, SELFPAY ==
[2025-01-29 18:50] LABS: HGB 11.1 g/dL (11.2-15.7); MCH 25.4 pg (27.0-33.0); MCV 85 fL (80-95); MPV 10.9 fL (8.0-11.0); Platelet Count 404 10^3/uL (130-400); RBC 4.37 10^6/uL (3.93-5.22); RDW 17.6 % (11.7-14.6); RDW-SD 53.7 fL; WBC 6.21 10^3/uL (4.4-10.8)
[2025-01-29 19:02] LABS: ALT 27 U/L (14-59); AST 28 U/L (15-37); Alkaline Phosphatase 108 U/L (46-116); Anion Gap 7.8 mmol/L (3-11); BUN 19 mg/dL (7-18); Bilirubin, Total 0.4 mg/dL (0.2-1.0); C-Reactive Protein 0.73 mg/dL (<or=0.5); CO2 28.2 mmol/L (21.0-32.0); CREATININE 0.9 mg/dL (0.55-1.02); Calcium 9.4 mg/dL (8.5-10.1); Chloride 106 mmol/L (98-107); Estimated GFR 71.83 (mL/min/1.73m2); Glucose 103 mg/dL (74-106); Potassium 4.4 mmol/L (3.5-5.1); Sodium 142 mmol/L (136-145); Total Protein 7.5 g/dL (6.4-8.2)
== END 2025-01-29 17:53 | disposition home or self-care (01) ==
LOC: NCHCN 17:52
PROVIDERS: PCP Internal Medicine; Visit Provider Internal Medicine
DX: M00.9 Pyogenic arthritis, unspecified (principal)
CPT/HCPCS: 80053; 85027; 86140

== ENCOUNTER 2025-04-21 15:51 | Outpatient (REF) | payer MEDICARE, SELFPAY ==
[2025-04-21 19:36] LABS: HCT 37.3 % (36.0-46.0); HGB 11.2 g/dL (11.2-15.7); MCH 24.7 pg (27.0-33.0); MCHC 30.0 % (32.0-36.0); MCV 82 fL (80-95); MPV 11.0 fL (8.0-11.0); Platelet Count 390 10^3/uL (130-400); RBC 4.53 10^6/uL (3.93-5.22); RDW 19.2 % (11.7-14.6); RDW-SD 56.8 fL; WBC 5.60 10^3/uL (4.4-10.8)
[2025-04-21 19:53] LABS: ALT 28 U/L (14-59); AST 33 U/L (15-37); Albumin 4.0 g/dL (3.4-5.0); Alkaline Phosphatase 104 U/L (46-116); Anion Gap 7.9 mmol/L (3-11); BUN 14 mg/dL (7-18); Bilirubin, Total 0.4 mg/dL (0.2-1.0); C-Reactive Protein 1.05 mg/dL (<or=0.5); CO2 27.1 mmol/L (21.0-32.0); Calcium 9.7 mg/dL (8.5-10.1); Chloride 105 mmol/L (98-107); Estimated GFR 82.74 (mL/min/1.73m2); Glucose 97 mg/dL (74-106); Potassium 3.9 mmol/L (3.5-5.1); Sodium 140 mmol/L (136-145); Total Protein 7.5 g/dL (6.4-8.2)
== END 2025-04-21 15:52 | disposition home or self-care (01) ==
LOC: NCHCN 15:51
PROVIDERS: PCP Internal Medicine; Visit Provider Internal Medicine
DX: M06.9 Rheumatoid arthritis, unspecified (principal)
CPT/HCPCS: 80053; 85027; 86140

== ENCOUNTER 2025-04-29 14:33 | Outpatient (REF) | payer MEDICARE, SELFPAY ==
[2025-05-01 10:27] LABS: Hepatitis C Ab w Rflx HCV PCR Negative (Negative)
[2025-05-01 10:45] LABS: HIV-1/2 Ag & Ab Screen Negative (Negative)
== END 2025-04-29 14:34 | disposition home or self-care (01) ==
LOC: NCHCN 14:33
PROVIDERS: PCP Internal Medicine; Visit Provider Internal Medicine
DX: Z11.59 Encounter for screening for other viral diseases (principal)
CPT/HCPCS: 86803; 87389